=== PATIENT | female | born 1930 | race Caucasian/White ===

== ENCOUNTER 2016-08-19 11:51 | Emergency (ER) | payer OTHER, MEDICAID ==
[2016-08-19 11:56] VITALS: BP 134/69; BMI 23.7
--- NOTE | 2016-08-19 12:32 | DR.GENAD ---
HPI - PCP Primary Care Physician: neema - Complaint/Symptoms Chief Complaint:: pt cat scratched her left hand after telling him to get down - Nurses notes reviewed Nurses Notes Review: Yes - Source History Provided: Patient - Mode of Arrival Mode of Arrival: Ambulatory - Timing Onset of Chief Complaint: 08/19/16 Came on: Suddenly - Duration Duration: Constant How lon Duration: Hours - Location Location: left hand - Severity Severity: Mild - Associated Signs and Symptoms Associated Signs and Symptoms: scratches PMH - PMH Past Medical History: Yes Past Medical History: Arthritis, COPD, Diabetes Past Surgical History: Yes Surgical History: Hysterectomy - Family History History of Family Medical Conditions: Yes Family Medical History: Diabetes Mellitus - Social History Does patient currently use any type of tobacco product: No Have you used tobacco products in the last 12 months: No Type of Tobacco Use: None Does any household member use tobacco: No Alcohol Use: None Do you use any recreational Drugs:: No Lives With: Family Lives Where: Home - infectious screening In the last 2 months have you had wt loss of >10#?: NO Have you had fever, night sweats or hemotysis?: No Have you traveled outside the country in the last 6 months?: No Isolation: Standard ROS - Review of Systems Constitutional: No Symptoms Reported Eyes: No Symptoms Reported ENTM: No Symptoms Reported Respiratoy: No Symptoms Reported Cardiovascular: No Symptoms Reported Gastrointestinal/Abdominal: No Symptoms Reported Genitourinary: No Symptoms Reported Neurological: No Symptoms Reported Musculoskeletal: No Symptoms Reported Integumentary: Other (scratches left hand) Hematologic/Lymphatic: No Symptoms Reported Endocrine: No Symptoms Reported Psychiatric: Depression PE - Vital Signs Vitals: Temperature 97.8 F Pulse Rate 68 Respiratory Rate 18 Blood Pressure [Left Arm] 153/67 Blood Pressure 134/69 O2 Sat by Pulse Oximetry 99 - General Limitations: No Limitations General Appearance: Alert, In No Apparent Distress - Head Head Exam: Normal Inspection - Eyes Eye exam: Normal Appearance, EOMI. negative: Scleral Icterus, Conjunctival Injection - ENT ENT Exam: Normal Exam External Ear Exam: Normal External Inspection - Neck Neck Exam: Normal Inspection, Full ROM, Trachea Midline - Chest Chest Inspection: Normal Inspection - Respiratory Respiratory Exam: Normal Lung Sounds Bilat. negative: Accessory Muscle Use, Respiratory Distress Respiratory Exam: Bilateral Clear to Auscultation - Cardiovascular Cardiovascular Exam: Regular Rate - Abdominal Exam Abdominal Exam: Normal Inspection, Normal Bowel Sounds - Extremities Extremities Exam: Normal Inspection, Full ROM - Back Back Exam: Normal Inspection, Full ROM - Neurologic Neurological Exam: Alert, Oriented X3, CN II-XII Intact - Psychiatric Psychiatric Exam: Normal Mood - Skin Skin Exam: Normal Color. negative: Intact (scratches let hand) - Diagnosis Discharge Problem: Cat scratch - Discharge Plan Condition: Stable Prescriptions: Amoxicillin/Potassium Clav [Augmentin 875-125 Tablet] 1 tab PO Q12H #14 tab - Follow ups/Referrals Follow ups/Referrals: FARAZ SALTER [Primary Care Provider] - 3 days - Instructions
[2016-08-19] MEDS ORDERED: AUGMENTIN 500 MG/125 MG TAB PO ONE ×2 (12:44→12:52)
[2016-08-19] MEDS ORDERED: AUGMENTIN 875 MG/125 MG TAB PO SCH (13:00)
== END 2016-08-19 13:07 | disposition home or self-care (01) ==
LOC: ER 11:59
DX: A28.1 Cat-scratch disease (principal); W55.03XA Scratched by cat, initial encounter
CPT/HCPCS: 99282

== ENCOUNTER → 2016-09-22 | Outpatient (CLI) | payer OTHER, MEDICAID ==
[2016-09-22 18:54] LABS: BASOPHILS # (AUTO) 0.1 X10^3/uL (0.0-0.1); BASOPHILS % (AUTO) 0.8 % (0.2-1.0); EOSINOPHILS # (AUTO) 0.1 x10^3/uL (0.0-0.2); EOSINOPHILS % (AUTO) 1.8 % (0.9-2.9); HEMATOCRIT 38.2 % (36.0-47.0); HEMOGLOBIN 12.7 g/dL (12.0-16.0); LYMPHOCYTES # (AUTO) 1.4 X10^3/uL (1.3-2.9); LYMPHOCYTES % (AUTO) 18.5 % (21.0-51.0); MEAN CORPUSCULAR HEMOGLOBIN 25.6 pg (27.0-34.0); MEAN CORPUSCULAR HGB CONC 33.4 g/dL (33.0-35.0); MEAN CORPUSCULAR VOLUME 76.9 fL (80.0-100.0); MEAN PLATELET VOLUME 8.7 fL (7.4-11.0); MONOCYTES # (AUTO) 0.8 x10^3/uL (0.3-0.8); NEUTROPHILS # (AUTO) 5.2 x10^3/uL (2.2-4.8); NEUTROPHILS % (AUTO) 67.9 % (42.0-75.0); PLATELET COUNT 242 X10^3/uL (150.0-450.0); RED BLOOD COUNT 4.97 X10^6/uL (3.5-5.4); RED CELL DISTRIBUTION WIDTH 16.3 % (11.6-16.5); RETICULOCYTE % 1.12 % (0.8-2.2); WHITE BLOOD COUNT 7.7 X10^3/uL (3.6-10.0)
[2016-09-22 18:58] LABS: HEMOGLOBIN A1C 8.6 % (4.5-6.2)
[2016-09-22 19:01] LABS: PLATELET MORPHOLOGY COMMENT NORMAL (NORMAL)
[2016-09-22 19:06] LABS: ALANINE AMINOTRANSFERASE 30 Units/L (12-78); ALBUMIN 3.9 g/dL (3.4-5.0); ALKALINE PHOSPHATASE 206 Units/L (46-116); ASPARTATE AMINO TRANSFERASE 30 Units/L (15-37); BLOOD UREA NITROGEN 11 mg/dL (7-18); CALCIUM 8.3 mg/dL (8.5-10.1); CARBON DIOXIDE 30.1 mmol/L (21-32); CHLORIDE 102 mmol/L (98-107); CHOLESTEROL 144 mg/dL (0-200); COR NA(FOR HYPERGLY) 139 mmol/L (136-145); GLUCOSE 135 mg/dL (65-99); HDL CHOLESTEROL 48 mg/dL (40-60); HYPOCHROMASIA SLIGHT; SODIUM 138 mmol/L (136-145); TOTAL PROTEIN 8.4 g/dL (6.4-8.2); TRIGLYCERIDES 84 mg/dL (0-150); TSH (3RD GENERATION) 2.843 uIU/mL (0.358-3.74); eGFR BLACK RACES > 60 (>60); eGFR NON BLACK RACES 50 (>60)
[2016-09-26 06:37] LABS: VITAMIN D 25 OH 31 ng/mL (30-80)
[2016-09-29 07:38] LABS: METHYLMALONIC ACID 1.15 umol/L (0.00-0.40)
== END ==
LOC: LAB 18:11
PROVIDERS: ATTEND Nurse Practitioner Family
DX: Z00.00 Encounter for general adult medical examination without abnormal findings (principal); R41.3 Other amnesia; E11.9 Type 2 diabetes mellitus without complications
CPT/HCPCS: 36415; 80053; 80061; 82306; 82607; 82615; 82746; 83036; 83918; 84443; 85025; 85045; 86256; 86340; 86592

== ENCOUNTER → 2017-07-02 | Outpatient (CLI) | payer OTHER, MEDICAID ==
--- NOTE | 2017-07-02 11:47 | US ---
HISTORY: Right upper quadrant pain, GERD Study: Right upper quadrant abdominal ultrasound Comparison: None Technique: Multiple images of the right upper quadrant were obtained. Findings: The right lobe of the liver measures 5.9 x 9.0 x 7.9 cm. The left lobe of the thyroid measures 5.7 x 4.3 x 6.0 cm. No sonographic evidence of focal discrete hepatic mass is appreciated. The right kidney measures 9.8 x 3.4 x 5.8. The right renal cortical thickness measures 1.1 cm. No sonographic evidenc e of hydronephrosis is identified. Small non shadowing echogenic foci measuring up to 2 mm in size al manjit the gallbladder wall may reflect artifact, debris, or polyps. Gallbladder wall thickness is withi n normal limits measuring 2.9 mm. The common bile duct is within normal limits in caliber measuring 2 .9 mm. The pancreas was incompletely visualized. IMPRESSION: 1. Questionable small polyps versus debris within the gallbladder as noted above. Reported By:
--- NOTE | 2017-07-02 12:35 | US ---
HISTORY: Elevated TSH Study: Thyroid ultrasound: Multiplanar ultrasonographic examination of the thyroid was performed. Comparison: None Findings: The thyroid overall is generally homogeneous. It does not appear to be hypervascular. Right lobe: 2.5 cm in length by 1.6 x 1.9 cm. No nodules Left lobe: 2.6 cm in length by 1.0 cm x 1.8 cm. There is a predominantly hypoechoic non hypervascul ar solid mass measuring 1.1 x 0.7 x 1.1 cm. Isthmus: Normal at 3 mm. IMPRESSION: 1. Solid thyroid nodule on the left side. Based on size fine-needle aspiration is recommended. 2. Both lobes of thyroid are small consistent with atrophy. Reported By:
== END | disposition home or self-care (01) | DRG 948 ==
LOC: RAD 09:15
PROVIDERS: ATTEND Psychiatry & Neurology Neurology
DX: R74.8 Abnormal levels of other serum enzymes (principal); E04.1 Nontoxic single thyroid nodule
CPT/HCPCS: 76536; 76705

== ENCOUNTER 2018-03-01 13:29 | Inpatient (IN) ==
[2018-03-01 14:54] LABS: BASOPHILS % (AUTO) 0.7 % (0.2-1.0); EOSINOPHILS # (AUTO) 0.1 x10^3/uL (0.0-0.2); EOSINOPHILS % (AUTO) 1.4 % (0.9-2.9); HEMATOCRIT 44.8 % (36.0-47.0); LYMPHOCYTES # (AUTO) 1.1 X10^3/uL (1.3-2.9); LYMPHOCYTES % (AUTO) 19.2 % (21.0-51.0); MEAN CORPUSCULAR HGB CONC 33.4 g/dL (33.0-35.0); MEAN CORPUSCULAR VOLUME 84.1 fL (80.0-100.0); MEAN PLATELET VOLUME 8.8 fL (7.4-11.0); MONOCYTES # (AUTO) 0.4 x10^3/uL (0.3-0.8); MONOCYTES % (AUTO) 7.2 % (0.0-13.0); NEUTROPHILS # (AUTO) 4.1 x10^3/uL (2.2-4.8); NEUTROPHILS % (AUTO) 71.5 % (42.0-75.0); PLATELET COUNT 187 X10^3/uL (150.0-450.0); RED BLOOD COUNT 5.33 X10^6/uL (3.5-5.4); RED CELL DISTRIBUTION WIDTH 12.9 % (11.6-16.5); WHITE BLOOD COUNT 5.8 X10^3/uL (3.6-10.0)
[2018-03-01 15:08] LABS: ALANINE AMINOTRANSFERASE 43 Units/L (12-78); ALBUMIN 3.7 g/dL (3.4-5.0); ALKALINE PHOSPHATASE 224 Units/L (46-116); ASPARTATE AMINO TRANSFERASE 40 Units/L (15-37); BLOOD UREA NITROGEN 30 mg/dL (7-18); CALCIUM 9.2 mg/dL (8.5-10.1); CARBON DIOXIDE 24.1 mmol/L (21-32); CHLORIDE 94 mmol/L (98-107); COR NA(FOR HYPERGLY) 140 mmol/L (136-145); SODIUM 130 mmol/L (136-145); TOTAL PROTEIN 8.4 g/dL (6.4-8.2); eGFR NON BLACK RACES 27 (>60)
--- NOTE | 2018-03-01 15:43 | CT ---
CT head without contrast Indication: Altered mental status, weakness Comparison: 10/28/2017 Technique: CT images of the head were obtained without contrast. Automatic exposure control was utilized. Findings: There is age-appropriate generalized cortical involution with concomitant ventricular and sulcal enlargement. Patchy areas of white matter hypoattenuation are similar to prior and most compatible with chronic microangiopathy. There is no evidence for acute bleed, generalized edema, or abnormal extra-axial collection. No acute osseous abnormality. The visualized paranasal sinuses and mastoid air cells are grossly clear. Impression: No acute intracranial abnormality. Reported By:
[2018-03-01] MEDS: HumuLIN R SUBCUT PRN ×3 (16:27→21:00)
[2018-03-01] MEDS: NS 1000 ML 1,000 ML IV SCH (16:28)
[2018-03-01 17:15] LABS: BILIRUBIN,URINE NEGATIVE (NEGATIVE); BLOOD/HEMOGLOBIN,URINE 2+ (NEGATIVE); GLUCOSE, URINE 4+ (NEGATIVE); KETONES,URINE 1+ (NEGATIVE); LEUKOCYTE ESTERASE ,URINE NEGATIVE (NEGATIVE); NITRITES,URINE NEGATIVE (NEGATIVE); PROTEIN,URINE 1+ (NEGATIVE); UROBILINOGEN,URINE NORMAL (NORMAL)
[2018-03-01 17:25] LABS: APPEARANCE,URINE CLEAR (CLEAR); BACTERIA,URINE TRACE /HPF (NEGATIVE); COLOR,URINE PALE YELLOW (YELLOW); SQUAMOUS EPITHELIAL CELL,UR FEW /HPF (NEGATIVE)
[2018-03-01] MEDS: SNACK - Diabetic Appropriate PO SCH (20:00)
[2018-03-02 05:18] LABS: BASOPHILS # (AUTO) 0.1 X10^3/uL (0.0-0.1); BASOPHILS % (AUTO) 0.8 % (0.2-1.0); EOSINOPHILS # (AUTO) 0.2 x10^3/uL (0.0-0.2); EOSINOPHILS % (AUTO) 3.4 % (0.9-2.9); HEMATOCRIT 41.1 % (36.0-47.0); LYMPHOCYTES # (AUTO) 1.6 X10^3/uL (1.3-2.9); LYMPHOCYTES % (AUTO) 23.6 % (21.0-51.0); MEAN CORPUSCULAR HEMOGLOBIN 28.2 pg (27.0-34.0); MEAN CORPUSCULAR VOLUME 83.1 fL (80.0-100.0); MEAN PLATELET VOLUME 8.5 fL (7.4-11.0); MONOCYTES # (AUTO) 0.6 x10^3/uL (0.3-0.8); MONOCYTES % (AUTO) 8.4 % (0.0-13.0); NEUTROPHILS # (AUTO) 4.3 x10^3/uL (2.2-4.8); NEUTROPHILS % (AUTO) 63.8 % (42.0-75.0); PLATELET COUNT 176 X10^3/uL (150.0-450.0); RED BLOOD COUNT 4.95 X10^6/uL (3.5-5.4); RED CELL DISTRIBUTION WIDTH 13.1 % (11.6-16.5); WHITE BLOOD COUNT 6.7 X10^3/uL (3.6-10.0)
[2018-03-02 05:24] LABS: HEMOGLOBIN A1C 11.4 %
[2018-03-02 05:27] LABS: ALBUMIN 3.1 g/dL (3.4-5.0); CALCIUM 8.5 mg/dL (8.5-10.1); CARBON DIOXIDE 24.8 mmol/L (21-32); COR CA(FOR HYPOALB) 9.2 mg/dL (8.5-10.1); CREATININE 1.19 mg/dL (0.55-1.02); TOTAL PROTEIN 7.3 g/dL (6.4-8.2)
[2018-03-02] MEDS: HumuLIN R SUBCUT PRN ×4 (05:53→20:24)
[2018-03-02] MEDS: NS 1000 ML 1,000 ML IV SCH ×3 (06:28→20:27)
[2018-03-02 09:10] VITALS: BMI 18.9
[2018-03-02] MEDS: LOVENOX INJ 30 MG SYR SC SCH (12:05)
[2018-03-02] MEDS ORDERED: ANTIVERT TAB 25 MG PO PRN (14:49)
[2018-03-02] MEDS: NexIUM PO SCH (16:35)
[2018-03-02] MEDS: PAXIL PO SCH (16:36)
[2018-03-02] MEDS: PLAVIX PO SCH (16:36)
[2018-03-02] MEDS ORDERED: SNACK - Diabetic Appropriate PO SCH (20:00)
[2018-03-02] MEDS: WELCHOL PO SCH (20:22)
[2018-03-02] MEDS: RESTORIL CAP 15 MG PO PRN ×2 (20:23)
[2018-03-02] MEDS: PROCARDIA XL PO SCH (20:24)
[2018-03-02] MEDS: NAMENDA TAB 10 MG PO SCH (20:24)
[2018-03-02] MEDS: CRESTOR TAB 10 MG PO SCH (20:24)
[2018-03-02] MEDS: SNACK - Diabetic Appropriate PO SCH (20:26)
[2018-03-02] MEDS: LANTUS SC SCH (20:26)
[2018-03-02] MEDS ORDERED: LIPITOR TAB 40 MG PO SCH (21:00)
[2018-03-03] MEDS ORDERED: ULTRAM PO PRN (02:43)
[2018-03-03] MEDS ORDERED: ULTRAM ONE (02:45)
[2018-03-03 05:27] LABS: BASOPHILS # (AUTO) 0.1 X10^3/uL (0.0-0.1); EOSINOPHILS # (AUTO) 0.1 x10^3/uL (0.0-0.2); EOSINOPHILS % (AUTO) 2.1 % (0.9-2.9); HEMATOCRIT 39.9 % (36.0-47.0); HEMOGLOBIN 13.4 g/dL (12.0-16.0); LYMPHOCYTES # (AUTO) 1.1 X10^3/uL (1.3-2.9); LYMPHOCYTES % (AUTO) 16.6 % (21.0-51.0); MEAN CORPUSCULAR HGB CONC 33.5 g/dL (33.0-35.0); MEAN CORPUSCULAR VOLUME 83.4 fL (80.0-100.0); MEAN PLATELET VOLUME 8.7 fL (7.4-11.0); MONOCYTES # (AUTO) 0.6 x10^3/uL (0.3-0.8); MONOCYTES % (AUTO) 8.1 % (0.0-13.0); NEUTROPHILS % (AUTO) 72.2 % (42.0-75.0); PLATELET COUNT 179 X10^3/uL (150.0-450.0); RED BLOOD COUNT 4.79 X10^6/uL (3.5-5.4); WHITE BLOOD COUNT 6.9 X10^3/uL (3.6-10.0)
[2018-03-03 05:32] LABS: CALCIUM 8.5 mg/dL (8.5-10.1); CARBON DIOXIDE 25.1 mmol/L (21-32); COR CA(FOR HYPOALB) 9.3 mg/dL (8.5-10.1); CREATININE 1.11 mg/dL (0.55-1.02)
[2018-03-03] MEDS: GLUCOTROL XL PO SCH (06:06)
[2018-03-03] MEDS: SYNTHROID 50 mcg TAB PO SCH (06:06)
[2018-03-03] MEDS: WELCHOL PO SCH ×2 (06:06→16:06)
[2018-03-03] MEDS: HumuLIN R SUBCUT PRN ×3 (06:14→20:20)
[2018-03-03] MEDS: PROCARDIA XL PO SCH ×2 (07:45→20:19)
[2018-03-03] MEDS: ARICEPT TAB 5 MG PO SCH ×2 (07:45→07:46)
[2018-03-03] MEDS: NAMENDA TAB 10 MG PO SCH ×2 (07:46→20:19)
[2018-03-03] MEDS: NexIUM PO SCH (07:46)
[2018-03-03] MEDS: JANUVIA PO SCH (07:46)
[2018-03-03] MEDS: PAXIL PO SCH (07:46)
[2018-03-03] MEDS: PLAVIX PO SCH (07:46)
[2018-03-03] MEDS: LANTUS SC SCH ×2 (07:49→20:19)
[2018-03-03] MEDS: LOVENOX INJ 30 MG SYR SC SCH (07:50)
--- NOTE | 2018-03-03 10:30 | RAD ---
HISTORY: Abnormal physical exam Study: Chest PA and lateral Comparison: Chest CT 02/23/2018 Findings: There is a pacemaker present on the right. The heart is mildly enlarged. No congestive heart failure is noted. No acute alveolar infiltrates or pleural effusions are identified. Mild interstitial lung changes are present. The lung nodules described on the recent CT are not visualized on plain film and follow-up should be with CT. The bony thorax is unremarkable. IMPRESSION: Chronic interstitial lung changes, mild, stable No acute infiltrates Reported By:
[2018-03-03] MEDS: ROCEPHIN VIAL 1 GRAM IV SCH (12:22)
[2018-03-03] MEDS: NS 1000 ML 1,000 ML IV SCH ×2 (12:26→20:19)
[2018-03-03] MEDS: CRESTOR TAB 10 MG PO SCH (20:19)
[2018-03-03] MEDS: RESTORIL CAP 15 MG PO PRN (20:19)
[2018-03-03] MEDS: SNACK - Diabetic Appropriate PO SCH (20:20)
[2018-03-04] MEDS: NS 1000 ML 1,000 ML IV SCH ×3 (05:16→20:28)
[2018-03-04 05:31] LABS: BASOPHILS % (AUTO) 0.8 % (0.2-1.0); EOSINOPHILS # (AUTO) 0.2 x10^3/uL (0.0-0.2); EOSINOPHILS % (AUTO) 2.8 % (0.9-2.9); HEMATOCRIT 40.5 % (36.0-47.0); HEMOGLOBIN 13.5 g/dL (12.0-16.0); LYMPHOCYTES # (AUTO) 1.1 X10^3/uL (1.3-2.9); LYMPHOCYTES % (AUTO) 17.9 % (21.0-51.0); MEAN CORPUSCULAR HGB CONC 33.3 g/dL (33.0-35.0); MEAN PLATELET VOLUME 8.7 fL (7.4-11.0); MONOCYTES # (AUTO) 0.5 x10^3/uL (0.3-0.8); MONOCYTES % (AUTO) 7.6 % (0.0-13.0); NEUTROPHILS # (AUTO) 4.2 x10^3/uL (2.2-4.8); NEUTROPHILS % (AUTO) 70.9 % (42.0-75.0); PLATELET COUNT 187 X10^3/uL (150.0-450.0); RED BLOOD COUNT 4.82 X10^6/uL (3.5-5.4); RED CELL DISTRIBUTION WIDTH 13.2 % (11.6-16.5); WHITE BLOOD COUNT 5.9 X10^3/uL (3.6-10.0)
[2018-03-04 05:45] LABS: ALANINE AMINOTRANSFERASE 42 Units/L (12-78); ALBUMIN 2.8 g/dL (3.4-5.0); ALKALINE PHOSPHATASE 181 Units/L (46-116); ASPARTATE AMINO TRANSFERASE 48 Units/L (15-37); BLOOD UREA NITROGEN 15 mg/dL (7-18); CALCIUM 8.4 mg/dL (8.5-10.1); CARBON DIOXIDE 24.3 mmol/L (21-32); CHLORIDE 104 mmol/L (98-107); COR CA(FOR HYPOALB) 9.4 mg/dL (8.5-10.1); CREATININE 0.95 mg/dL (0.55-1.02); SODIUM 138 mmol/L (136-145); TOTAL PROTEIN 7.1 g/dL (6.4-8.2); eGFR NON BLACK RACES 59 (>60)
[2018-03-04] MEDS: GLUCOTROL XL PO SCH (06:10)
[2018-03-04] MEDS: SYNTHROID 50 mcg TAB PO SCH (06:10)
[2018-03-04] MEDS: WELCHOL PO SCH ×2 (06:10→16:38)
[2018-03-04] MEDS: NAMENDA TAB 10 MG PO SCH ×2 (08:16→20:29)
[2018-03-04] MEDS: NexIUM PO SCH (08:16)
[2018-03-04] MEDS: PAXIL PO SCH (08:16)
[2018-03-04] MEDS: ROCEPHIN VIAL 1 GRAM IV SCH (08:16)
[2018-03-04] MEDS: ARICEPT TAB 5 MG PO SCH (08:16)
[2018-03-04] MEDS: JANUVIA PO SCH (08:16)
[2018-03-04] MEDS: PROCARDIA XL PO SCH ×2 (08:16→20:29)
[2018-03-04] MEDS: LOVENOX INJ 30 MG SYR SC SCH (08:17)
[2018-03-04] MEDS: PLAVIX PO SCH (08:31)
[2018-03-04] MEDS: LANTUS SC SCH ×2 (08:32→20:30)
[2018-03-04] MEDS: CIPRO IV 400 MG PREMIX* 400 MG/200 ML IV.SOLN. IV SCH ×2 (11:06→20:29)
[2018-03-04] MEDS: HumuLIN R SUBCUT PRN ×3 (11:07→20:29)
--- NOTE | 2018-03-04 13:42 | PCM.PROG ---
Progress Note - Progress Note for Day of Date of Exam: 03/04/18 - Subjective Subjective: 87 WF ER ADMISSION ON 03/03 WITH AMS, GENERALIZED WEAKNESS, UNCONTROLLED BLOOD SUGAR AND UTI. SINCE ADMISSION PT HAS HAD IMPROVEMENT IN BLOOD GLUCOSE AND RESOLVED CONFUSION. PT CONTINUES WITH DIFFUSE WEAKNESS BUT DENIES CP OR SOB. PT COOPERATING WITH PHYSICAL THERAPY AT THIS TIME. FAMILY CONCERNED ABOUT PT STAYING ALONE. PT CURRENTLY REFUSES PERMANENT [facility] PLACEMENT, DISCUSSED POSSIBLE REHAB THERAPY. PT URINE CULTURE RESULTS NOT SENSATIVE TO ROCEPHIN, CHANGED TO IV CIPRO. - Past Medical Family Social History Past Med/Fam/Surg Hx: No changes since H&P Allergies: Allergies acetaminophen Allergy (Verified 10/28/17 12:29) pyrilamine Allergy (Verified 10/28/17 12:29) - Review of Systems ROS: No change since H&P - Vital Signs and I&O's Vital Signs: Temperature 97.9 F Pulse Rate [Left Brachial] 70 Respiratory Rate 20 Blood Pressure [Right Arm] 120/58 Blood Pressure [Left Arm] 135/65 Blood Pressure 146/66 O2 Sat by Pulse Oximetry 96 Intake and Output: Intake & Output 03/02/18 03/03/18 03/04/18 03/05/18 11:59 11:59 11:59 11:59 Intake Total 1430 / 1430 2539 / 2539 2463 / 2463 Balance 1430 / 1430 2539 / 2539 2463 / 2463 - Physical Exam Oriented: Normal Eyes: Blurred Vision (CHRONIC VISION IMPAIRMENT) Ear: Normal Nose: Normal Throat: Normal Respiratory: Diminished Cardiovascular: Normal : Normal Auscultation: Bowel Sounds: Normal Palpation: Normal Tenderness: Normal Skin: Decreased Turgur Musculoskeletal: Back:Thoracic, Back:Lumbar Psychiatric: Anxiety Affect: Anxious Speech Pattern: Clear, Appropriate - Laboratory and Diagnostics Result Diagrams: 03/04/18 04:50 03/04/18 04:50 Labs: 03/01/18 16:50 Urine,Clean Catch Urine Culture - Final Staphylococcus Haemolyticus Laboratory WBC 5.9 X10^3/uL (3.6-10.0) 03/04/18 04:50 RBC 4.82 X10^6/uL (3.5-5.4) 03/04/18 04:50 Hgb 13.5 g/dL (12.0-16.0) 03/04/18 04:50 Hct 40.5 % (36.0-47.0) 03/04/18 04:50 MCV 84.0 fL (80.0-100.0) 03/04/18 04:50 MCH 28.0 pg (27.0-34.0) 03/04/18 04:50 MCHC 33.3 g/dL (33.0-35.0) 03/04/18 04:50 RDW 13.2 % (11.6-16.5) 03/04/18 04:50 Plt Count 187 X10^3/uL (150.0-450.0) 03/04/18 04:50 MPV 8.7 fL (7.4-11.0) 03/04/18 04:50 Neut % (Auto) 70.9 % (42.0-75.0) 03/04/18 04:50 Lymph % (Auto) 17.9 % (21.0-51.0) L 03/04/18 04:50 Lane % (Auto) 7.6 % (0.0-13.0) 03/04/18 04:50 Eos % (Auto) 2.8 % (0.9-2.9) 03/04/18 04:50 Baso % (Auto) 0.8 % (0.2-1.0) 03/04/18 04:50 Neut # (Auto) 4.2 x10^3/uL (2.2-4.8) 03/04/18 04:50 Lymph # (Auto) 1.1 X10^3/uL (1.3-2.9) L 03/04/18 04:50 Lane # (Auto) 0.5 x10^3/uL (0.3-0.8) 03/04/18 04:50 Eos # (Auto) 0.2 x10^3/uL (0.0-0.2) 03/04/18 04:50 Baso # (Auto) 0.0 X10^3/uL (0.0-0.1) 03/04/18 04:50 Absolute Nucleated RBC 0.1 /100WBC 03/04/18 04:50 Sodium 138 mmol/L (136-145) 03/04/18 04:50 Corrected Sodium TNP 03/04/18 04:50 Potassium 3.9 mmol/L (3.5-5.1) 03/04/18 04:50 Chloride 104 mmol/L (98-107) 03/04/18 04:50 Carbon Dioxide 24.3 mmol/L (21-32) 03/04/18 04:50 BUN 15 mg/dL (7-18) 03/04/18 04:50 Creatinine 0.95 mg/dL (0.55-1.02) 03/04/18 04:50 Est GFR (MDRD) Af Amer > 60 (>60) 03/04/18 04:50 Est GFR (MDRD) Non-Af 59 (>60) 03/04/18 04:50 Glucose 80 mg/dL (65-99) 03/04/18 04:50 POC Glucose (mg/dL) 87 mg/dL (65-99) 03/04/18 05:19 Hemoglobin A1c 11.4 % 03/02/18 05:00 Calcium 8.4 mg/dL (8.5-10.1) L 03/04/18 04:50 Corrected Calcium 9.4 mg/dL (8.5-10.1) 03/04/18 04:50 Total Bilirubin 0.30 mg/dL (0.2-1.0) 03/04/18 04:50 AST 48 Units/L (15-37) H 03/04/18 04:50 ALT 42 Units/L (12-78) 03/04/18 04:50 Alkaline Phosphatase 181 Units/L (46-116) H 03/04/18 04:50 Total Protein 7.1 g/dL (6.4-8.2) 03/04/18 04:50 Albumin 2.8 g/dL (3.4-5.0) L 03/04/18 04:50 Globulin 4.3 g/dL (2.5-4.5) 03/04/18 04:50 Albumin/Globulin Ratio 0.7 Ratio (1.1-2.1) L 03/04/18 04:50 Specimen Type Clean catch urine 03/01/18 16:50 Urine Color Pale yellow (YELLOW) 03/01/18 16:50 Urine Appearance Clear (CLEAR) 03/01/18 16:50 Urine pH 5.0 (5.0 - 8.0) 03/01/18 16:50 Ur Specific [place] 1.015 (1.000-1.030) 03/01/18 16:50 Urine Protein 1+ (NEGATIVE) 03/01/18 16:50 Urine Glucose (UA) 4+ (NEGATIVE) 03/01/18 16:50 Urine Ketones 1+ (NEGATIVE) 03/01/18 16:50 Urine Occult Blood 2+ (NEGATIVE) 03/01/18 16:50 Urine Nitrite Negative (NEGATIVE) 03/01/18 16:50 Urine Bilirubin Negative (NEGATIVE) 03/01/18 16:50 Urine Urobilinogen Normal (NORMAL) 03/01/18 16:50 Ur Leukocyte Esterase Negative (NEGATIVE) 03/01/18 16:50 Urine RBC 3-5 /HPF (NONE SEEN) 03/01/18 16:50 Urine WBC None seen /HPF (NONE SEEN) 03/01/18 16:50 Ur Squamous Epith Cells Few /HPF (NEGATIVE) 03/01/18 16:50 Urine Bacteria Trace /HPF (NEGATIVE) 03/01/18 16:50 Ur Culture Indicated? Yes/culture set up 03/01/18 16:50 - Plan (1) UTI (lower urinary tract infection) Status: Acute Plan: ENCOURAGE PO HYDRATION. AM LABS, BLOOD SUGAR CONTROL. IV CIPRO. CONTINUE HOME MEDICATION FOR BP AND LIPID CONTROL. PT (2) Adult failure to thrive Status: Acute (3) Generalized weakness Status: Acute (4) Hyperglycemia Status: Acute (5) History of atrial fibrillation Status: Acute Plan: CONTINUE ELIQUIS
[2018-03-04] MEDS: SNACK - Diabetic Appropriate PO SCH (20:00)
[2018-03-04] MEDS: CRESTOR TAB 10 MG PO SCH (20:29)
[2018-03-04] MEDS: RESTORIL CAP 15 MG PO PRN (20:29)
[2018-03-05 05:20] LABS: BASOPHILS # (AUTO) 0.1 X10^3/uL (0.0-0.1); BASOPHILS % (AUTO) 1.1 % (0.2-1.0); EOSINOPHILS # (AUTO) 0.3 x10^3/uL (0.0-0.2); EOSINOPHILS % (AUTO) 4.1 % (0.9-2.9); HEMATOCRIT 38.4 % (36.0-47.0); HEMOGLOBIN 12.7 g/dL (12.0-16.0); LYMPHOCYTES # (AUTO) 1.3 X10^3/uL (1.3-2.9); LYMPHOCYTES % (AUTO) 19.7 % (21.0-51.0); MEAN CORPUSCULAR HEMOGLOBIN 27.9 pg (27.0-34.0); MEAN CORPUSCULAR HGB CONC 33.1 g/dL (33.0-35.0); MEAN CORPUSCULAR VOLUME 84.3 fL (80.0-100.0); MEAN PLATELET VOLUME 8.6 fL (7.4-11.0); MONOCYTES # (AUTO) 0.6 x10^3/uL (0.3-0.8); MONOCYTES % (AUTO) 9.1 % (0.0-13.0); NEUTROPHILS # (AUTO) 4.3 x10^3/uL (2.2-4.8); PLATELET COUNT 189 X10^3/uL (150.0-450.0); RED BLOOD COUNT 4.56 X10^6/uL (3.5-5.4); RED CELL DISTRIBUTION WIDTH 12.9 % (11.6-16.5); WHITE BLOOD COUNT 6.5 X10^3/uL (3.6-10.0)
[2018-03-05 05:28] LABS: ALANINE AMINOTRANSFERASE 31 Units/L (12-78); ALBUMIN 2.8 g/dL (3.4-5.0); ALKALINE PHOSPHATASE 174 Units/L (46-116); ASPARTATE AMINO TRANSFERASE 33 Units/L (15-37); BLOOD UREA NITROGEN 10 mg/dL (7-18); CALCIUM 8.1 mg/dL (8.5-10.1); CARBON DIOXIDE 26.8 mmol/L (21-32); CHLORIDE 104 mmol/L (98-107); COR CA(FOR HYPOALB) 9.1 mg/dL (8.5-10.1); COR NA(FOR HYPERGLY) 140 mmol/L (136-145); CREATININE 0.85 mg/dL (0.55-1.02); SODIUM 139 mmol/L (136-145); TOTAL PROTEIN 6.7 g/dL (6.4-8.2); eGFR NON BLACK RACES > 60 (>60)
[2018-03-05] MEDS: NS 1000 ML 1,000 ML IV SCH ×2 (06:01→18:46)
[2018-03-05] MEDS: SYNTHROID 50 mcg TAB PO SCH (06:01)
[2018-03-05] MEDS: GLUCOTROL XL PO SCH (06:01)
[2018-03-05] MEDS: WELCHOL PO SCH ×2 (06:02→17:10)
[2018-03-05] MEDS: ARICEPT TAB 5 MG PO SCH (07:59)
[2018-03-05] MEDS: JANUVIA PO SCH (07:59)
[2018-03-05] MEDS: PAXIL PO SCH (08:00)
[2018-03-05] MEDS: PLAVIX PO SCH (08:00)
[2018-03-05] MEDS: LANTUS SC SCH ×2 (08:00→20:57)
[2018-03-05] MEDS: LOVENOX INJ 30 MG SYR SC SCH (08:00)
[2018-03-05] MEDS: PROCARDIA XL PO SCH ×2 (08:00→20:49)
[2018-03-05] MEDS: NexIUM PO SCH (08:00)
[2018-03-05] MEDS: CIPRO IV 400 MG PREMIX* 400 MG/200 ML IV.SOLN. IV SCH ×2 (08:00→20:50)
[2018-03-05] MEDS: NAMENDA TAB 10 MG PO SCH ×2 (08:00→20:49)
[2018-03-05] MEDS: HumuLIN R SUBCUT PRN (11:22)
[2018-03-05] MEDS: CRESTOR TAB 10 MG PO SCH (20:48)
[2018-03-05] MEDS: SNACK - Diabetic Appropriate PO SCH (20:49)
[2018-03-05] MEDS: RESTORIL CAP 15 MG PO PRN (20:50)
[2018-03-06 05:18] LABS: BASOPHILS % (AUTO) 0.7 % (0.2-1.0); EOSINOPHILS # (AUTO) 0.3 x10^3/uL (0.0-0.2); EOSINOPHILS % (AUTO) 5.3 % (0.9-2.9); HEMATOCRIT 39.5 % (36.0-47.0); HEMOGLOBIN 13.1 g/dL (12.0-16.0); LYMPHOCYTES # (AUTO) 1.2 X10^3/uL (1.3-2.9); LYMPHOCYTES % (AUTO) 19.3 % (21.0-51.0); MEAN CORPUSCULAR HEMOGLOBIN 28.2 pg (27.0-34.0); MEAN CORPUSCULAR HGB CONC 33.3 g/dL (33.0-35.0); MEAN CORPUSCULAR VOLUME 84.7 fL (80.0-100.0); MEAN PLATELET VOLUME 8.6 fL (7.4-11.0); MONOCYTES # (AUTO) 0.5 x10^3/uL (0.3-0.8); MONOCYTES % (AUTO) 8.7 % (0.0-13.0); NEUTROPHILS # (AUTO) 4.1 x10^3/uL (2.2-4.8); PLATELET COUNT 197 X10^3/uL (150.0-450.0); RED BLOOD COUNT 4.66 X10^6/uL (3.5-5.4); RED CELL DISTRIBUTION WIDTH 13.3 % (11.6-16.5); WHITE BLOOD COUNT 6.2 X10^3/uL (3.6-10.0)
[2018-03-06 05:22] LABS: ALANINE AMINOTRANSFERASE 31 Units/L (12-78); ALBUMIN 2.7 g/dL (3.4-5.0); ALKALINE PHOSPHATASE 181 Units/L (46-116); ASPARTATE AMINO TRANSFERASE 31 Units/L (15-37); BLOOD UREA NITROGEN 13 mg/dL (7-18); CALCIUM 8.8 mg/dL (8.5-10.1); CARBON DIOXIDE 27.3 mmol/L (21-32); CHLORIDE 104 mmol/L (98-107); COR CA(FOR HYPOALB) 9.8 mg/dL (8.5-10.1); COR NA(FOR HYPERGLY) 142 mmol/L (136-145); CREATININE 0.96 mg/dL (0.55-1.02); SODIUM 139 mmol/L (136-145); TOTAL PROTEIN 6.7 g/dL (6.4-8.2); eGFR NON BLACK RACES 58 (>60)
[2018-03-06] MEDS: GLUCOTROL XL PO SCH (06:28)
[2018-03-06] MEDS: SYNTHROID 50 mcg TAB PO SCH (06:28)
[2018-03-06] MEDS: WELCHOL PO SCH ×2 (06:28→17:36)
[2018-03-06] MEDS: HumuLIN R SUBCUT PRN ×3 (06:29→22:00)
[2018-03-06] MEDS: CIPRO IV 400 MG PREMIX* 400 MG/200 ML IV.SOLN. IV SCH ×2 (09:06→21:28)
[2018-03-06] MEDS: LOVENOX INJ 30 MG SYR SC SCH (09:07)
[2018-03-06] MEDS: JANUVIA PO SCH (09:07)
[2018-03-06] MEDS: NAMENDA TAB 10 MG PO SCH ×2 (09:08→21:28)
[2018-03-06] MEDS: NexIUM PO SCH (09:08)
[2018-03-06] MEDS: PAXIL PO SCH (09:08)
[2018-03-06] MEDS: ARICEPT TAB 5 MG PO SCH (09:09)
[2018-03-06] MEDS: PROCARDIA XL PO SCH ×3 (09:09→21:27)
[2018-03-06] MEDS: PLAVIX PO SCH (09:09)
[2018-03-06] MEDS: LANTUS SC SCH ×2 (09:14→21:28)
--- NOTE | 2018-03-06 14:03 | PCM.PROG ---
Progress Note - Progress Note for Day of Date of Exam: 03/06/18 - Subjective Subjective: 87 WF ER ADMISSION ON 03/03 WITH AMS, GENERALIZED WEAKNESS, UNCONTROLLED BLOOD SUGAR AND UTI. SINCE ADMISSION PT HAS HAD IMPROVEMENT IN BLOOD GLUCOSE AND RESOLVED CONFUSION. PT CONTINUES WITH DIFFUSE WEAKNESS BUT DENIES CP OR SOB. PT COOPERATING WITH PHYSICAL THERAPY AT THIS TIME. FAMILY CONCERNED ABOUT PT STAYING ALONE. PT CURRENTLY REFUSES PERMANENT LONG-TERM PLACEMENT, DISCUSSED POSSIBLE REHAB THERAPY. CASE MANAGMENT TO ARRANGE HOME HEALTH AND CONTACT FAMILY ABOUT D/C HOME ON THURSDAY. PT URINE CULTURE RESULTS SENSATIVE TO IV CIPRO. WILL CONTINUE BS CONTROL AND ENCOURAGE ORAL HYDRATION. BUN 13, CREAT 0.96. BS ELEVATED THIS AM226, PT ATE 90% BREAKFAST - Past Medical Family Social History Past Med/Fam/Surg Hx: No changes since H&P Allergies: Allergies acetaminophen Allergy (Verified 10/28/17 12:29) pyrilamine Allergy (Verified 10/28/17 12:29) - Review of Systems ROS: No change since H&P - Vital Signs and I&O's Vital Signs: Temperature 98.3 F Pulse Rate [Left Brachial] 68 Respiratory Rate 18 Blood Pressure [Right Arm] 120/58 Blood Pressure [Left Arm] 110/62 Blood Pressure 146/66 O2 Sat by Pulse Oximetry 97 Intake and Output: Intake & Output 03/04/18 03/05/18 03/06/18 03/07/18 11:59 11:59 11:59 11:59 Intake Total 2463 / 2463 3528 / 3528 1220 / 1220 Balance 2463 / 2463 3528 / 3528 1220 / 1220 - Physical Exam Oriented: Normal Eyes: Blurred Vision (CHRONIC VISION IMPAIRMENT) Ear: Normal Nose: Normal Throat: Normal Respiratory: Diminished Cardiovascular: Normal : Normal Auscultation: Bowel Sounds: Normal Tenderness: Normal Skin: Decreased Turgur Musculoskeletal: Back:Thoracic, Back:Lumbar Psychiatric: Anxiety Affect: Anxious Speech Pattern: Clear, Appropriate - Laboratory and Diagnostics Result Diagrams: 03/06/18 04:15 03/06/18 04:15 Labs: 03/01/18 16:50 Urine,Clean Catch Urine Culture - Final Staphylococcus Haemolyticus Laboratory WBC 6.2 X10^3/uL (3.6-10.0) 03/06/18 04:15 RBC 4.66 X10^6/uL (3.5-5.4) 03/06/18 04:15 Hgb 13.1 g/dL (12.0-16.0) 03/06/18 04:15 Hct 39.5 % (36.0-47.0) 03/06/18 04:15 MCV 84.7 fL (80.0-100.0) 03/06/18 04:15 MCH 28.2 pg (27.0-34.0) 03/06/18 04:15 MCHC 33.3 g/dL (33.0-35.0) 03/06/18 04:15 RDW 13.3 % (11.6-16.5) 03/06/18 04:15 Plt Count 197 X10^3/uL (150.0-450.0) 03/06/18 04:15 MPV 8.6 fL (7.4-11.0) 03/06/18 04:15 Neut % (Auto) 66.0 % (42.0-75.0) 03/06/18 04:15 Lymph % (Auto) 19.3 % (21.0-51.0) L 03/06/18 04:15 [place] % (Auto) 8.7 % (0.0-13.0) 03/06/18 04:15 Eos % (Auto) 5.3 % (0.9-2.9) H 03/06/18 04:15 Baso % (Auto) 0.7 % (0.2-1.0) 03/06/18 04:15 Neut # (Auto) 4.1 x10^3/uL (2.2-4.8) 03/06/18 04:15 Lymph # (Auto) 1.2 X10^3/uL (1.3-2.9) L 03/06/18 04:15 [place] # (Auto) 0.5 x10^3/uL (0.3-0.8) 03/06/18 04:15 Eos # (Auto) 0.3 x10^3/uL (0.0-0.2) H 03/06/18 04:15 Baso # (Auto) 0.0 X10^3/uL (0.0-0.1) 03/06/18 04:15 Absolute Nucleated RBC 0.2 /100WBC 03/06/18 04:15 Sodium 139 mmol/L (136-145) 03/06/18 04:15 Corrected Sodium 142 mmol/L (136-145) 03/06/18 04:15 Potassium 3.8 mmol/L (3.5-5.1) 03/06/18 04:15 Chloride 104 mmol/L (98-107) 03/06/18 04:15 Carbon Dioxide 27.3 mmol/L (21-32) 03/06/18 04:15 BUN 13 mg/dL (7-18) 03/06/18 04:15 Creatinine 0.96 mg/dL (0.55-1.02) 03/06/18 04:15 Est GFR (MDRD) Af Amer > 60 (>60) 03/06/18 04:15 Est GFR (MDRD) Non-Af 58 (>60) L 03/06/18 04:15 Glucose 226 mg/dL (65-99) H 03/06/18 04:15 POC Glucose (mg/dL) 87 mg/dL (65-99) 03/04/18 05:19 Hemoglobin A1c 11.4 % 03/02/18 05:00 Calcium 8.8 mg/dL (8.5-10.1) 03/06/18 04:15 Corrected Calcium 9.8 mg/dL (8.5-10.1) 03/06/18 04:15 Total Bilirubin 0.30 mg/dL (0.2-1.0) 03/06/18 04:15 AST 31 Units/L (15-37) 03/06/18 04:15 ALT 31 Units/L (12-78) 03/06/18 04:15 Alkaline Phosphatase 181 Units/L (46-116) H 03/06/18 04:15 Total Protein 6.7 g/dL (6.4-8.2) 03/06/18 04:15 Albumin 2.7 g/dL (3.4-5.0) L 03/06/18 04:15 Globulin 4.0 g/dL (2.5-4.5) 03/06/18 04:15 Albumin/Globulin Ratio 0.7 Ratio (1.1-2.1) L 03/06/18 04:15 Specimen Type Clean catch urine 03/01/18 16:50 Urine Color Pale yellow (YELLOW) 03/01/18 16:50 Urine Appearance Clear (CLEAR) 03/01/18 16:50 Urine pH 5.0 (5.0 - 8.0) 03/01/18 16:50 Ur Specific [place] 1.015 (1.000-1.030) 03/01/18 16:50 Urine Protein 1+ (NEGATIVE) 03/01/18 16:50 Urine Glucose (UA) 4+ (NEGATIVE) 03/01/18 16:50 Urine Ketones 1+ (NEGATIVE) 03/01/18 16:50 Urine Occult Blood 2+ (NEGATIVE) 03/01/18 16:50 Urine Nitrite Negative (NEGATIVE) 03/01/18 16:50 Urine Bilirubin Negative (NEGATIVE) 03/01/18 16:50 Urine Urobilinogen Normal (NORMAL) 03/01/18 16:50 Ur Leukocyte Esterase Negative (NEGATIVE) 03/01/18 16:50 Urine RBC 3-5 /HPF (NONE SEEN) 03/01/18 16:50 Urine WBC None seen /HPF (NONE SEEN) 03/01/18 16:50 Ur Squamous Epith Cells Few /HPF (NEGATIVE) 03/01/18 16:50 Urine Bacteria Trace /HPF (NEGATIVE) 03/01/18 16:50 Ur Culture Indicated? Yes/culture set up 03/01/18 16:50 - Plan (1) UTI (lower urinary tract infection) Status: Acute Plan: ENCOURAGE PO HYDRATION. AM LABS, BLOOD SUGAR CONTROL. IV CIPRO. CONTINUE HOME MEDICATION FOR BP AND LIPID CONTROL. PT (2) Adult failure to thrive Status: Acute (3) Generalized weakness Status: Acute (4) Hyperglycemia Status: Acute (5) History of atrial fibrillation Status: Acute Plan: CONTINUE ELIQUIS
[2018-03-06] MEDS: RESTORIL CAP 15 MG PO PRN (21:27)
[2018-03-06] MEDS: CRESTOR TAB 10 MG PO SCH (21:27)
[2018-03-06] MEDS: SNACK - Diabetic Appropriate PO SCH (21:28)
[2018-03-06] MEDS: NS 1000 ML 1,000 ML IV SCH (21:29)
[2018-03-07 05:17] LABS: BASOPHILS % (AUTO) 0.6 % (0.2-1.0); EOSINOPHILS # (AUTO) 0.4 x10^3/uL (0.0-0.2); EOSINOPHILS % (AUTO) 5.2 % (0.9-2.9); HEMATOCRIT 40.9 % (36.0-47.0); HEMOGLOBIN 13.5 g/dL (12.0-16.0); LYMPHOCYTES # (AUTO) 2.5 X10^3/uL (1.3-2.9); LYMPHOCYTES % (AUTO) 33.3 % (21.0-51.0); MEAN CORPUSCULAR HEMOGLOBIN 27.7 pg (27.0-34.0); MEAN CORPUSCULAR VOLUME 83.8 fL (80.0-100.0); MEAN PLATELET VOLUME 8.3 fL (7.4-11.0); MONOCYTES # (AUTO) 0.8 x10^3/uL (0.3-0.8); MONOCYTES % (AUTO) 10.7 % (0.0-13.0); NEUTROPHILS # (AUTO) 3.8 x10^3/uL (2.2-4.8); NEUTROPHILS % (AUTO) 50.2 % (42.0-75.0); PLATELET COUNT 227 X10^3/uL (150.0-450.0); RED BLOOD COUNT 4.88 X10^6/uL (3.5-5.4); RED CELL DISTRIBUTION WIDTH 13.2 % (11.6-16.5); WHITE BLOOD COUNT 7.5 X10^3/uL (3.6-10.0)
[2018-03-07 05:23] LABS: ALANINE AMINOTRANSFERASE 33 Units/L (12-78); ALKALINE PHOSPHATASE 188 Units/L (46-116); ASPARTATE AMINO TRANSFERASE 37 Units/L (15-37); BLOOD UREA NITROGEN 13 mg/dL (7-18); CALCIUM 8.6 mg/dL (8.5-10.1); CARBON DIOXIDE 27.8 mmol/L (21-32); CHLORIDE 104 mmol/L (98-107); COR CA(FOR HYPOALB) 9.4 mg/dL (8.5-10.1); CREATININE 0.95 mg/dL (0.55-1.02); SODIUM 141 mmol/L (136-145); TOTAL PROTEIN 7.1 g/dL (6.4-8.2); eGFR NON BLACK RACES 59 (>60)
[2018-03-07] MEDS ORDERED: POTASSIUM CHL 60 MEQ/NS 0.45% 500 ML IV PRN (05:41)
[2018-03-07] MEDS ORDERED: K-RIDER 10 MEQ/NS 100 ML 10 MEQ/100 ML BAG IV PRN (05:41)
[2018-03-07] MEDS ORDERED: KLOR-CON PO PRN (05:41)
[2018-03-07] MEDS ORDERED: MICRO K EXTEN CAP 10 MEQ PO PRN (05:41)
[2018-03-07] MEDS ORDERED: POTASSIUM CHL 40 MEQ/NS 0.45% 500 ML IV PRN (05:41)
[2018-03-07] MEDS ORDERED: POTASSIUM CHLORIDE LIQ 20 MEQ UDC PO PRN (05:41)
[2018-03-07] MEDS ORDERED: K-DUR TAB 20 MEQ PO PRN (05:41)
[2018-03-07] MEDS: WELCHOL PO SCH ×2 (06:05→18:20)
[2018-03-07] MEDS: SYNTHROID 50 mcg TAB PO SCH (06:05)
[2018-03-07] MEDS: MAGNESIUM SULFATE 1 GRAM/100 mL PREMIX 1 GM/100 ML BAG IV PRN ×2 (08:57→10:50)
[2018-03-07] MEDS: CIPRO IV 400 MG PREMIX* 400 MG/200 ML IV.SOLN. IV SCH ×2 (09:01→20:46)
[2018-03-07] MEDS: LOVENOX INJ 30 MG SYR SC SCH (09:02)
[2018-03-07] MEDS: NexIUM PO SCH (09:02)
[2018-03-07] MEDS: NAMENDA TAB 10 MG PO SCH ×2 (09:02→20:47)
[2018-03-07] MEDS: PAXIL PO SCH (09:03)
[2018-03-07] MEDS: ARICEPT TAB 5 MG PO SCH (09:03)
[2018-03-07] MEDS: PLAVIX PO SCH (09:03)
[2018-03-07] MEDS: PROCARDIA XL PO SCH ×2 (09:11→20:47)
[2018-03-07] MEDS: JANUVIA PO SCH (09:45)
[2018-03-07] MEDS: GLUCOTROL XL PO SCH (09:45)
[2018-03-07] MEDS: LANTUS SC SCH ×2 (09:45→20:47)
[2018-03-07] MEDS: HumuLIN R SUBCUT PRN ×2 (13:04→18:21)
[2018-03-07] MEDS: CRESTOR TAB 10 MG PO SCH (20:46)
[2018-03-07] MEDS: SNACK - Diabetic Appropriate PO SCH (20:47)
[2018-03-08 05:25] LABS: BASOPHILS % (AUTO) 0.6 % (0.2-1.0); EOSINOPHILS # (AUTO) 0.3 x10^3/uL (0.0-0.2); EOSINOPHILS % (AUTO) 4.3 % (0.9-2.9); HEMATOCRIT 37.9 % (36.0-47.0); HEMOGLOBIN 12.8 g/dL (12.0-16.0); LYMPHOCYTES # (AUTO) 1.4 X10^3/uL (1.3-2.9); LYMPHOCYTES % (AUTO) 18.5 % (21.0-51.0); MEAN CORPUSCULAR HEMOGLOBIN 28.1 pg (27.0-34.0); MEAN CORPUSCULAR HGB CONC 33.8 g/dL (33.0-35.0); MEAN CORPUSCULAR VOLUME 83.2 fL (80.0-100.0); MEAN PLATELET VOLUME 8.5 fL (7.4-11.0); MONOCYTES # (AUTO) 0.6 x10^3/uL (0.3-0.8); MONOCYTES % (AUTO) 8.2 % (0.0-13.0); NEUTROPHILS # (AUTO) 5.2 x10^3/uL (2.2-4.8); NEUTROPHILS % (AUTO) 68.4 % (42.0-75.0); PLATELET COUNT 206 X10^3/uL (150.0-450.0); RED BLOOD COUNT 4.55 X10^6/uL (3.5-5.4); RED CELL DISTRIBUTION WIDTH 12.8 % (11.6-16.5); WHITE BLOOD COUNT 7.5 X10^3/uL (3.6-10.0)
[2018-03-08 05:32] LABS: ALANINE AMINOTRANSFERASE 34 Units/L (12-78); ALBUMIN 2.8 g/dL (3.4-5.0); ALKALINE PHOSPHATASE 176 Units/L (46-116); ASPARTATE AMINO TRANSFERASE 37 Units/L (15-37); BLOOD UREA NITROGEN 13 mg/dL (7-18); CALCIUM 8.4 mg/dL (8.5-10.1); CHLORIDE 105 mmol/L (98-107); COR CA(FOR HYPOALB) 9.4 mg/dL (8.5-10.1); SODIUM 140 mmol/L (136-145); TOTAL PROTEIN 6.7 g/dL (6.4-8.2); eGFR NON BLACK RACES > 60 (>60)
[2018-03-08] MEDS: SYNTHROID 50 mcg TAB PO SCH (05:59)
[2018-03-08] MEDS: WELCHOL PO SCH (05:59)
[2018-03-08] MEDS: NS 1000 ML 1,000 ML IV SCH (06:34)
[2018-03-08] MEDS: LOVENOX INJ 30 MG SYR SC SCH (08:59)
[2018-03-08] MEDS: ARICEPT TAB 5 MG PO SCH (08:59)
[2018-03-08] MEDS: PAXIL PO SCH (08:59)
[2018-03-08] MEDS: CIPRO IV 400 MG PREMIX* 400 MG/200 ML IV.SOLN. IV SCH (08:59)
[2018-03-08] MEDS: NAMENDA TAB 10 MG PO SCH (09:00)
[2018-03-08] MEDS: PLAVIX PO SCH (09:00)
[2018-03-08] MEDS: JANUVIA PO SCH ×2 (09:00→09:01)
[2018-03-08] MEDS: PROCARDIA XL PO SCH (09:00)
[2018-03-08] MEDS: GLUCOTROL XL PO SCH (09:01)
[2018-03-08] MEDS: NexIUM PO SCH (09:01)
[2018-03-08] MEDS: LANTUS SC SCH (09:01)
[2018-03-08 09:12] VITALS: BP 139/62
[2018-03-08] MEDS: HumuLIN R SUBCUT PRN (11:52)
== END 2018-03-08 12:00 | disposition home health service (06) | DRG 690 ==
LOC: MED/SURG
PROVIDERS: ADMIT Internal Medicine; ATTEND Internal Medicine
DX: M54.5 Low back pain; R26.89 Other abnormalities of gait and mobility; I25.10 Atherosclerotic heart disease of native coronary artery without angina pectoris; R62.7 Adult failure to thrive; R29.6 Repeated falls; B95.7 Other staphylococcus as the cause of diseases classified elsewhere; N39.0 Urinary tract infection, site not specified; E10.65 Type 1 diabetes mellitus with hyperglycemia; I10 Essential (primary) hypertension; R53.1 Weakness; R41.82 Altered mental status, unspecified
CPT/HCPCS: 36415; 70450; 71020; 71046; 80053; 81001; 83036; 83735; 85025; 87086; 87088; 87186; 94760; 97110; 97116; 97162; 97167; 97535; A4222; G0378; J0696; J0744; J1650; J1815; J3475; J7030

== ENCOUNTER 2018-04-28 12:22 | Inpatient (IN) ==
[2018-04-28] MEDS ORDERED: HumuLIN R SUBCUT PRN (12:30)
--- NOTE | 2018-04-28 13:38 | DR.H&P ---
H&P - History & Physical for Day of: H&P Date: 04/28/18 - Chief Complaint Chief Complaint: UTI, WEAKNESS, FALLS - History of Present Illness History of Present Illness: PT IS 87 WF DIRECT ADMIT FROM DR GARCIA OFFICE WITH CO GENERALIZED WEAKNESS WITH MULTIPLE FALLS. PT HAD FALL 2 WEEKS AGO WITH LUMBAR AND RIGHT HIP INJURY, XRAYS NEGATIVE FOR FRACTURE. FAMILY CONCERNED PT "STILL CANT WALK". PT HAD WEAKNESS AND UTI, HOME HEALTH INSERTED [facility] ON WEDNESDAY 04/26, PT STARTED ON MACROBID AT THAT TIME. PT STATES SHE STILL FEELS "WEAK", FAMILY REPORTS CONFUSION. - Past Medical History Past Medical History: Diabetes, COPD, Arthritis - Past Surgical History Surgical History: Angioplasty/Stents, Hysterectomy, Other - Family History Family Medical History: Diabetes Mellitus, Hypertension - Social History Does patient currently use any type of tobacco product: No Have you used tobacco products in the last 12 months: No Type of Tobacco Use: None Does any household member use tobacco: No Alcohol Use: None Drug Use: None - Medications Home Medications: acetaminophen Allergy (Verified 04/28/18 13:25) pyrilamine Allergy (Verified 04/28/18 13:25) CONTINUE taking the following medications citalopram 20 mg PO HS 04/28/18 [History] cyclosporine [Restasis] 1 drp OPHTHALMIC (EYE) BID 04/28/18 [History] doxepin 25 mg PO HS 04/28/18 [History] fluoxetine 20 mg PO DAILY 04/28/18 [History] nitrofurantoin macrocrystal 100 mg PO BID 04/28/18 [History] - Review of Systems Constitutional: Fever, Chills, Weakness, Malaise Eyes: No Symptoms Reported ENT: No Symptoms Reported Respiratory: SOB with Excertion Cardiovascular: No Symptoms Reported Gastrointestinal: Nausea Genitourinary: Dysuria, Frequency Musculoskeletal: Back Pain, Leg Pain Skin: No Symptoms Reported Neurological: Weakness, Confusion - Physical Exam Vital Signs: Blood Pressure [Right Arm] 139/62 Blood Pressure [Left Arm] 134/80 Blood Pressure 139/62 Oriented: Person Eyes: Normal Ear: Normal Nose: Normal Throat: Normal Respiratory: RLL Diminished, LLL Diminished Cardiovascular: Normal, Other (PACER MAKER PRESENT). negative: Murmur : Normal Auscultation: Bowel Sounds: Normal Tenderness: Suprapubic, Mild Skin: Normal Musculoskeletal: Right, Hip, Back:Thoracic, Back:Lumbar, Motor Deficit Psychiatric: Anxiety Affect: Anxious Speech Pattern: Clear, Appropriate - Assessment/Plan (1) Altered mental state Status: Acute Plan: R/T UTI, HX MULTIPLE FALLS. ADMIT, BLOOD AND URINE CULTURES, CXR. BLOOD SUGAR AND BLOOD PRESSURE CONTROL (2) Generalized weakness Status: Acute (3) History of atrial fibrillation Status: Acute (4) Adult failure to thrive Status: Acute - Allergies Allergies/Adverse Reactions: Allergies Allergy/AdvReac Type Severity Reaction Status Date / Time acetaminophen Allergy Verified 04/28/18 13:25 pyrilamine Allergy Verified 04/28/18 13:25
[2018-04-28] MEDS: DUONEB 0.5 MG/3 MG NEB SCH ×3 (14:14→20:05)
[2018-04-28 14:21] LABS: BASOPHILS # (AUTO) 0.1 X10^3/uL (0.0-0.1); BASOPHILS % (AUTO) 0.8 % (0.2-1.0); EOSINOPHILS # (AUTO) 0.4 x10^3/uL (0.0-0.2); EOSINOPHILS % (AUTO) 3.6 % (0.9-2.9); HEMATOCRIT 39.7 % (36.0-47.0); HEMOGLOBIN 13.5 g/dL (12.0-16.0); LYMPHOCYTES % (AUTO) 9.1 % (21.0-51.0); MEAN CORPUSCULAR HEMOGLOBIN 27.1 pg (27.0-34.0); MEAN CORPUSCULAR VOLUME 79.6 fL (80.0-100.0); MEAN PLATELET VOLUME 7.9 fL (7.4-11.0); MONOCYTES # (AUTO) 0.8 x10^3/uL (0.3-0.8); MONOCYTES % (AUTO) 7.6 % (0.0-13.0); NEUTROPHILS # (AUTO) 8.3 x10^3/uL (2.2-4.8); NEUTROPHILS % (AUTO) 78.9 % (42.0-75.0); PLATELET COUNT 324 X10^3/uL (150.0-450.0); RED BLOOD COUNT 4.99 X10^6/uL (3.5-5.4); WHITE BLOOD COUNT 10.5 X10^3/uL (3.6-10.0)
[2018-04-28 14:27] LABS: BILIRUBIN,URINE NEGATIVE (NEGATIVE); BLOOD/HEMOGLOBIN,URINE 1+ (NEGATIVE); GLUCOSE, URINE NEGATIVE (NEGATIVE); KETONES,URINE NEGATIVE (NEGATIVE); LEUKOCYTE ESTERASE ,URINE 1+ (NEGATIVE); NITRITES,URINE NEGATIVE (NEGATIVE); PROTEIN,URINE 1+ (NEGATIVE); UROBILINOGEN,URINE NORMAL (NORMAL)
[2018-04-28 14:33] LABS: APPEARANCE,URINE SLIGHTLY HAZY (CLEAR); BACTERIA,URINE 2+ /HPF (NEGATIVE); COLOR,URINE YELLOW (YELLOW); SQUAMOUS EPITHELIAL CELL,UR RARE /HPF (NEGATIVE)
[2018-04-28 14:35] LABS: ALBUMIN 3.1 g/dL (3.4-5.0); CALCIUM 9.2 mg/dL (8.5-10.1); CARBON DIOXIDE 31.9 mmol/L (21-32); COR CA(FOR HYPOALB) 9.9 mg/dL (8.5-10.1); CREATININE 1.32 mg/dL (0.55-1.02); TOTAL PROTEIN 8.2 g/dL (6.4-8.2)
[2018-04-28 15:51] VITALS: BMI 22.8
--- NOTE | 2018-04-28 16:02 | CT ---
CT brain without contrast Indication:Confusion and generalized weakness Comparison: 03/01/18 Technique: Multiple axial images of the brain were obtained from the skull base to the vertex without administration of IV contrast. Findings: No change in moderate generalized cerebral atrophy with mild bilateral periventricular and deep white matter hypoattenuation No acute intraparenchymal hemorrhage or mass can be identified. No extra-axial fluid collections are seen. No alteration in the attenuation of the brain parenchyma can be identified to suggest acute or subacute ischemic change. The ventricular system is symmetric and nondilated. The extracranial structures are grossly unremarkable. IMPRESSION: 1. No acute intracranial process is identified. Reported By:
[2018-04-28] MEDS: ROCEPHIN VIAL 1 GRAM IVP SCH (16:12)
--- NOTE | 2018-04-28 16:32 | RAD ---
HISTORY: Coronary arterial disease. Congestive heart failure. Exam: AP portable chest Comparison: 03/03/2018 Findings: There again noted to be findings of chronic interstitial fibrosis. The lung markings are slightly more prominent than on the prior examinations suggesting developing interstitial edema or interstitial pneumonia. There appears to be mild focal scarring in the right mid lung and right lung base. Mild cardiomegaly is noted. Moderate tortuosity of the aorta is present. Electronic cardiac device is present on the right and its leads appear to be in appropriate position. No acute bony abnormalities are identified. IMPRESSION: 1. Findings of chronic interstitial scarring. The lung markings are slightly more prominent suggestive of either technique of the film versus minimal interstitial edema or pneumonia. Clinical correlation is recommended. Reported By:
[2018-04-28] MEDS: SNACK - Diabetic Appropriate PO SCH (21:30)
[2018-04-28] MEDS: HumuLIN R SUBCUT PRN (21:57)
[2018-04-28] MEDS: RESTORIL CAP 15 MG PO PRN (21:59)
[2018-04-29 05:32] LABS: BASOPHILS # (AUTO) 0.1 X10^3/uL (0.0-0.1); BASOPHILS % (AUTO) 0.6 % (0.2-1.0); EOSINOPHILS # (AUTO) 0.5 x10^3/uL (0.0-0.2); EOSINOPHILS % (AUTO) 5.4 % (0.9-2.9); HEMATOCRIT 35.5 % (36.0-47.0); HEMOGLOBIN 12.1 g/dL (12.0-16.0); LYMPHOCYTES % (AUTO) 10.3 % (21.0-51.0); MEAN CORPUSCULAR HEMOGLOBIN 27.2 pg (27.0-34.0); MEAN CORPUSCULAR VOLUME 80.1 fL (80.0-100.0); MEAN PLATELET VOLUME 7.7 fL (7.4-11.0); MONOCYTES # (AUTO) 0.9 x10^3/uL (0.3-0.8); MONOCYTES % (AUTO) 9.6 % (0.0-13.0); NEUTROPHILS # (AUTO) 6.9 x10^3/uL (2.2-4.8); NEUTROPHILS % (AUTO) 74.1 % (42.0-75.0); PLATELET COUNT 305 X10^3/uL (150.0-450.0); RED BLOOD COUNT 4.43 X10^6/uL (3.5-5.4); WHITE BLOOD COUNT 9.3 X10^3/uL (3.6-10.0)
[2018-04-29 05:52] LABS: ALBUMIN 2.6 g/dL (3.4-5.0); CALCIUM 8.6 mg/dL (8.5-10.1); COR CA(FOR HYPOALB) 9.7 mg/dL (8.5-10.1); CREATININE 1.29 mg/dL (0.55-1.02); TOTAL PROTEIN 7.2 g/dL (6.4-8.2)
[2018-04-29] MEDS: ROCEPHIN VIAL 1 GRAM IVP SCH (09:54)
[2018-04-29] MEDS: DUONEB 0.5 MG/3 MG NEB SCH ×4 (10:01→20:26)
[2018-04-29] MEDS: HumuLIN R SUBCUT PRN ×3 (11:51→20:41)
--- NOTE | 2018-04-29 18:18 | PCM.PROG ---
Progress Note - Progress Note for Day of Date of Exam: 04/29/18 - Subjective Subjective: 87 WF ADMITTED ON 04/28 WITH UTI, PYELONEHRITIS, FLANK PAIN, WEAKNESS, INCREASED CONFUSION PER FAMILY WITH FALLS. PT IS CURRENTLY ON IV ROCEHIN WITH CULTURE +GRAM NEG RODS. PT HAD RECEIVED GENTLE IV HYDRATION AND CORRECTION OF HYPONATREMIA. PT CONTINUES TO FEEL WEAK THIS AM. DISCUSSED WITH FAMILY POSSIBLE REHAB THERAPY AFTER RESOLUTION OF ACUTE ILLNESS. - Past Medical Family Social History Past Med/Fam/Surg Hx: No changes since H&P Allergies: Allergies acetaminophen Allergy (Verified 04/28/18 13:25) pyrilamine Allergy (Verified 04/28/18 13:25) - Review of Systems ROS: No change since H&P - Vital Signs and I&O's Vital Signs: Temperature 98.1 F Pulse Rate [Left Brachial] 88 Pulse Rate 72 Respiratory Rate 20 Blood Pressure [Right Arm] 168/77 Blood Pressure [Left Arm] 145/68 Blood Pressure 139/62 O2 Sat by Pulse Oximetry 96 Intake and Output: Intake & Output 04/27/18 04/28/18 04/29/18 04/30/18 11:59 11:59 11:59 11:59 Intake Total 500 / 500 360 / 360 Output Total 1500 / 1500 1200 / 1200 Balance -1000 / -1000 -840 / -840 - Physical Exam Oriented: Person Eyes: Normal Ear: Normal Nose: Normal Throat: Normal Respiratory: Diminished Cardiovascular: Normal, Other (PACER MAKER PRESENT). negative: Murmur : Normal Auscultation: Bowel Sounds: Normal Tenderness: Suprapubic, Mild Skin: Normal Musculoskeletal: Right, Hip, Back:Thoracic, Back:Lumbar, Motor Deficit Psychiatric: Anxiety Affect: Anxious Speech Pattern: Clear, Appropriate - Laboratory and Diagnostics Result Diagrams: 04/29/18 05:16 04/29/18 05:16 Labs: 04/28/18 14:15 Urine,Catheterized Urine Culture - Preliminary Laboratory WBC 9.3 X10^3/uL (3.6-10.0) 04/29/18 05:16 RBC 4.43 X10^6/uL (3.5-5.4) 04/29/18 05:16 Hgb 12.1 g/dL (12.0-16.0) 04/29/18 05:16 Hct 35.5 % (36.0-47.0) L 04/29/18 05:16 MCV 80.1 fL (80.0-100.0) 04/29/18 05:16 MCH 27.2 pg (27.0-34.0) 04/29/18 05:16 MCHC 34.0 g/dL (33.0-35.0) 04/29/18 05:16 RDW 13.0 % (11.6-16.5) 04/29/18 05:16 Plt Count 305 X10^3/uL (150.0-450.0) 04/29/18 05:16 MPV 7.7 fL (7.4-11.0) 04/29/18 05:16 Neut % (Auto) 74.1 % (42.0-75.0) 04/29/18 05:16 Lymph % (Auto) 10.3 % (21.0-51.0) L 04/29/18 05:16 [place] % (Auto) 9.6 % (0.0-13.0) 04/29/18 05:16 Eos % (Auto) 5.4 % (0.9-2.9) H 04/29/18 05:16 Baso % (Auto) 0.6 % (0.2-1.0) 04/29/18 05:16 Neut # (Auto) 6.9 x10^3/uL (2.2-4.8) H 04/29/18 05:16 Lymph # (Auto) 1.0 X10^3/uL (1.3-2.9) L 04/29/18 05:16 [place] # (Auto) 0.9 x10^3/uL (0.3-0.8) H 04/29/18 05:16 Eos # (Auto) 0.5 x10^3/uL (0.0-0.2) H 04/29/18 05:16 Baso # (Auto) 0.1 X10^3/uL (0.0-0.1) 04/29/18 05:16 Absolute Nucleated RBC 0.0 /100WBC 04/29/18 05:16 Sodium 136 mmol/L (136-145) 04/29/18 05:16 Corrected Sodium 137 mmol/L (136-145) 04/29/18 05:16 Potassium 4.0 mmol/L (3.5-5.1) 04/29/18 05:16 Chloride 99 mmol/L (98-107) 04/29/18 05:16 Carbon Dioxide 30.0 mmol/L (21-32) 04/29/18 05:16 BUN 15 mg/dL (7-18) 04/29/18 05:16 Creatinine 1.29 mg/dL (0.55-1.02) H 04/29/18 05:16 Est GFR (MDRD) Af Amer 50 (>60) L 04/29/18 05:16 Est GFR (MDRD) Non-Af 42 (>60) L 04/29/18 05:16 Glucose 143 mg/dL (65-99) H 04/29/18 05:16 POC Glucose (mg/dL) 313 mg/dL (65-99) H 04/29/18 16:18 Calcium 8.6 mg/dL (8.5-10.1) 04/29/18 05:16 Corrected Calcium 9.7 mg/dL (8.5-10.1) 04/29/18 05:16 Total Bilirubin 0.50 mg/dL (0.2-1.0) 04/29/18 05:16 AST 39 Units/L (15-37) H 04/29/18 05:16 ALT 27 Units/L (12-78) 04/29/18 05:16 Alkaline Phosphatase 279 Units/L (46-116) H 04/29/18 05:16 Total Protein 7.2 g/dL (6.4-8.2) 04/29/18 05:16 Albumin 2.6 g/dL (3.4-5.0) L 04/29/18 05:16 Globulin 4.6 g/dL (2.5-4.5) H 04/29/18 05:16 Albumin/Globulin Ratio 0.6 Ratio (1.1-2.1) L 04/29/18 05:16 Specimen Type Catherized urine 04/28/18 14:15 Urine Color Yellow (YELLOW) 04/28/18 14:15 Urine Appearance Slightly hazy (CLEAR) 04/28/18 14:15 Urine pH 6.0 (5.0 - 8.0) 04/28/18 14:15 Ur Specific [place] 1.015 (1.000-1.030) 04/28/18 14:15 Urine Protein 1+ (NEGATIVE) 04/28/18 14:15 Urine Glucose (UA) Negative (NEGATIVE) 04/28/18 14:15 Urine Ketones Negative (NEGATIVE) 04/28/18 14:15 Urine Occult Blood 1+ (NEGATIVE) 04/28/18 14:15 Urine Nitrite Negative (NEGATIVE) 04/28/18 14:15 Urine Bilirubin Negative (NEGATIVE) 04/28/18 14:15 Urine Urobilinogen Normal (NORMAL) 04/28/18 14:15 Ur Leukocyte Esterase 1+ (NEGATIVE) 04/28/18 14:15 Urine RBC 3-5 /HPF (NONE SEEN) 04/28/18 14:15 Urine WBC 3-5 /HPF (NONE SEEN) 04/28/18 14:15 Ur Squamous Epith Cells Rare /HPF (NEGATIVE) 04/28/18 14:15 Urine Bacteria 2+ /HPF (NEGATIVE) 04/28/18 14:15 Ur Culture Indicated? Yes/culture set up 04/28/18 14:15 - Plan (1) Altered mental state Status: Acute Plan: DUE TO UTI, PYELONEPHRITIS HX MULTIPLE FALLS. BLOOD AND URINE CULTURES, CXR ON ADMISSION. BLOOD SUGAR AND BLOOD PRESSURE CONTROL (2) Generalized weakness Status: Acute (3) History of atrial fibrillation Status: Acute (4) Adult failure to thrive Status: Acute (5) Pyelonephritis Status: Acute Plan: IV ATBX, GENTLE IV HYDRATION. I & OS, BLOOD AND URINE CULTURES COLLECTED ON ADMISSION
[2018-04-29] MEDS: SNACK - Diabetic Appropriate PO SCH (20:35)
[2018-04-29] MEDS: RESTORIL CAP 15 MG PO PRN (20:40)
[2018-04-30 05:19] LABS: BASOPHILS # (AUTO) 0.1 X10^3/uL (0.0-0.1); BASOPHILS % (AUTO) 0.8 % (0.2-1.0); EOSINOPHILS # (AUTO) 0.5 x10^3/uL (0.0-0.2); EOSINOPHILS % (AUTO) 6.5 % (0.9-2.9); HEMATOCRIT 36.8 % (36.0-47.0); HEMOGLOBIN 12.2 g/dL (12.0-16.0); LYMPHOCYTES # (AUTO) 0.9 X10^3/uL (1.3-2.9); LYMPHOCYTES % (AUTO) 11.7 % (21.0-51.0); MEAN CORPUSCULAR HEMOGLOBIN 26.8 pg (27.0-34.0); MEAN CORPUSCULAR HGB CONC 33.1 g/dL (33.0-35.0); MEAN CORPUSCULAR VOLUME 80.8 fL (80.0-100.0); MEAN PLATELET VOLUME 7.9 fL (7.4-11.0); MONOCYTES # (AUTO) 0.8 x10^3/uL (0.3-0.8); MONOCYTES % (AUTO) 10.5 % (0.0-13.0); NEUTROPHILS # (AUTO) 5.7 x10^3/uL (2.2-4.8); NEUTROPHILS % (AUTO) 70.5 % (42.0-75.0); PLATELET COUNT 307 X10^3/uL (150.0-450.0); RED BLOOD COUNT 4.56 X10^6/uL (3.5-5.4); RED CELL DISTRIBUTION WIDTH 13.3 % (11.6-16.5); WHITE BLOOD COUNT 8.1 X10^3/uL (3.6-10.0)
[2018-04-30 05:32] LABS: ALANINE AMINOTRANSFERASE 28 Units/L (12-78); ALBUMIN 2.6 g/dL (3.4-5.0); ALKALINE PHOSPHATASE 283 Units/L (46-116); ASPARTATE AMINO TRANSFERASE 41 Units/L (15-37); BLOOD UREA NITROGEN 13 mg/dL (7-18); CALCIUM 8.6 mg/dL (8.5-10.1); CHLORIDE 100 mmol/L (98-107); COR CA(FOR HYPOALB) 9.7 mg/dL (8.5-10.1); COR NA(FOR HYPERGLY) 140 mmol/L (136-145); CREATININE 1.08 mg/dL (0.55-1.02); SODIUM 138 mmol/L (136-145); TOTAL PROTEIN 7.3 g/dL (6.4-8.2); eGFR NON BLACK RACES 51 (>60)
[2018-04-30] MEDS: ROCEPHIN VIAL 1 GRAM IVP SCH (09:15)
[2018-04-30] MEDS: DUONEB 0.5 MG/3 MG NEB SCH ×4 (09:25→20:25)
[2018-04-30] MEDS: HumuLIN R SUBCUT PRN ×2 (13:24→16:15)
--- NOTE | 2018-04-30 13:57 | PCM.PROG ---
Progress Note - Progress Note for Day of Date of Exam: 04/30/18 - Subjective Subjective: 87 WF ADMITTED ON 04/28 WITH UTI, PYELONEHRITIS, FLANK PAIN, WEAKNESS, INCREASED CONFUSION PER FAMILY WITH FALLS. PT IS CURRENTLY ON IV ROCEHIN WITH CULTURE +GRAM NEG RODS, SENSATIVE TO ROCEPHIN PT HAD RECEIVED GENTLE IV HYDRATION AND CORRECTION OF HYPONATREMIA. BUN 13, CREAT 1.08. PT CONTINUES TO FEEL WEAK THIS AM. DISCUSSED WITH FAMILY POSSIBLE REHAB THERAPY AFTER RESOLUTION OF ACUTE ILLNESS. - Past Medical Family Social History Past Med/Fam/Surg Hx: No changes since H&P Allergies: Allergies acetaminophen Allergy (Verified 04/28/18 13:25) pyrilamine Allergy (Verified 04/28/18 13:25) - Review of Systems ROS: No change since H&P - Vital Signs and I&O's Vital Signs: Temperature 98.3 F Pulse Rate [Left Brachial] 88 Pulse Rate 82 Respiratory Rate 17 Blood Pressure [Right Arm] 178/82 Blood Pressure [Left Arm] 145/68 Blood Pressure 139/62 O2 Sat by Pulse Oximetry 94 Intake and Output: Intake & Output 04/28/18 04/29/18 04/30/18 05/01/18 11:59 11:59 11:59 11:59 Intake Total 500 / 500 940 / 940 Output Total 1500 / 1500 3300 / 3300 Balance -1000 / -1000 -2360 / -2360 - Physical Exam Oriented: Person Eyes: Normal Ear: Normal Nose: Normal Throat: Normal Respiratory: Diminished Cardiovascular: Normal, Other (PACER MAKER PRESENT). negative: Murmur : Normal Auscultation: Bowel Sounds: Normal Tenderness: Suprapubic, Mild Skin: Normal Musculoskeletal: Right, Hip, Back:Thoracic, Back:Lumbar, Motor Deficit Psychiatric: Anxiety Affect: Anxious Speech Pattern: Clear, Appropriate - Laboratory and Diagnostics Result Diagrams: 04/30/18 04:38 04/30/18 04:38 Labs: 04/28/18 14:11 Blood Blood Culture - Preliminary 04/28/18 14:04 Blood Blood Culture - Preliminary 04/28/18 14:15 Urine,Catheterized Urine Culture - Final [facility] WBC 8.1 X10^3/uL (3.6-10.0) 04/30/18 04:38 RBC 4.56 X10^6/uL (3.5-5.4) 04/30/18 04:38 Hgb 12.2 g/dL (12.0-16.0) 04/30/18 04:38 Hct 36.8 % (36.0-47.0) 04/30/18 04:38 MCV 80.8 fL (80.0-100.0) 04/30/18 04:38 MCH 26.8 pg (27.0-34.0) L 04/30/18 04:38 MCHC 33.1 g/dL (33.0-35.0) 04/30/18 04:38 RDW 13.3 % (11.6-16.5) 04/30/18 04:38 Plt Count 307 X10^3/uL (150.0-450.0) 04/30/18 04:38 MPV 7.9 fL (7.4-11.0) 04/30/18 04:38 Neut % (Auto) 70.5 % (42.0-75.0) 04/30/18 04:38 Lymph % (Auto) 11.7 % (21.0-51.0) L 04/30/18 04:38 [place] % (Auto) 10.5 % (0.0-13.0) 04/30/18 04:38 Eos % (Auto) 6.5 % (0.9-2.9) H 04/30/18 04:38 Baso % (Auto) 0.8 % (0.2-1.0) 04/30/18 04:38 Neut # (Auto) 5.7 x10^3/uL (2.2-4.8) H 04/30/18 04:38 Lymph # (Auto) 0.9 X10^3/uL (1.3-2.9) L 04/30/18 04:38 [place] # (Auto) 0.8 x10^3/uL (0.3-0.8) 04/30/18 04:38 Eos # (Auto) 0.5 x10^3/uL (0.0-0.2) H 04/30/18 04:38 Baso # (Auto) 0.1 X10^3/uL (0.0-0.1) 04/30/18 04:38 Absolute Nucleated RBC 0.0 /100WBC 04/30/18 04:38 Sodium 138 mmol/L (136-145) 04/30/18 04:38 Corrected Sodium 140 mmol/L (136-145) 04/30/18 04:38 Potassium 3.6 mmol/L (3.5-5.1) 04/30/18 04:38 Chloride 100 mmol/L (98-107) 04/30/18 04:38 Carbon Dioxide 30.0 mmol/L (21-32) 04/30/18 04:38 BUN 13 mg/dL (7-18) 04/30/18 04:38 Creatinine 1.08 mg/dL (0.55-1.02) H 04/30/18 04:38 Est GFR (MDRD) Af Amer > 60 (>60) 04/30/18 04:38 Est GFR (MDRD) Non-Af 51 (>60) L 04/30/18 04:38 Glucose 182 mg/dL (65-99) H 04/30/18 04:38 POC Glucose (mg/dL) 366 mg/dL (65-99) H 04/30/18 10:37 Calcium 8.6 mg/dL (8.5-10.1) 04/30/18 04:38 Corrected Calcium 9.7 mg/dL (8.5-10.1) 04/30/18 04:38 Total Bilirubin 0.40 mg/dL (0.2-1.0) 04/30/18 04:38 AST 41 Units/L (15-37) H 04/30/18 04:38 ALT 28 Units/L (12-78) 04/30/18 04:38 Alkaline Phosphatase 283 Units/L (46-116) H 04/30/18 04:38 Total Protein 7.3 g/dL (6.4-8.2) 04/30/18 04:38 Albumin 2.6 g/dL (3.4-5.0) L 04/30/18 04:38 Globulin 4.7 g/dL (2.5-4.5) H 04/30/18 04:38 Albumin/Globulin Ratio 0.6 Ratio (1.1-2.1) L 04/30/18 04:38 Specimen Type Catherized urine 04/28/18 14:15 Urine Color Yellow (YELLOW) 04/28/18 14:15 Urine Appearance Slightly hazy (CLEAR) 04/28/18 14:15 Urine pH 6.0 (5.0 - 8.0) 04/28/18 14:15 Ur Specific [place] 1.015 (1.000-1.030) 04/28/18 14:15 Urine Protein 1+ (NEGATIVE) 04/28/18 14:15 Urine Glucose (UA) Negative (NEGATIVE) 04/28/18 14:15 Urine Ketones Negative (NEGATIVE) 04/28/18 14:15 Urine Occult Blood 1+ (NEGATIVE) 04/28/18 14:15 Urine Nitrite Negative (NEGATIVE) 04/28/18 14:15 Urine Bilirubin Negative (NEGATIVE) 04/28/18 14:15 Urine Urobilinogen Normal (NORMAL) 04/28/18 14:15 Ur Leukocyte Esterase 1+ (NEGATIVE) 04/28/18 14:15 Urine RBC 3-5 /HPF (NONE SEEN) 04/28/18 14:15 Urine WBC 3-5 /HPF (NONE SEEN) 04/28/18 14:15 Ur Squamous Epith Cells Rare /HPF (NEGATIVE) 04/28/18 14:15 Urine Bacteria 2+ /HPF (NEGATIVE) 04/28/18 14:15 Ur Culture Indicated? Yes/culture set up 04/28/18 14:15 - Plan (1) Altered mental state Status: Acute Plan: DUE TO UTI, PYELONEPHRITIS HX MULTIPLE FALLS. BLOOD AND URINE CULTURES, CXR ON ADMISSION. BLOOD SUGAR AND BLOOD PRESSURE CONTROL (2) Generalized weakness Status: Acute (3) History of atrial fibrillation Status: Acute (4) Adult failure to thrive Status: Acute (5) Pyelonephritis Status: Acute Plan: IV ATBX, GENTLE IV HYDRATION. I & OS, BLOOD AND URINE CULTURES COLLECTED ON ADMISSION
[2018-04-30] MEDS: PLAVIX PO SCH (14:59)
[2018-04-30] MEDS: LANTUS SC SCH ×2 (15:00→20:51)
[2018-04-30] MEDS: JANUVIA PO SCH (15:01)
[2018-04-30] MEDS ORDERED: SNACK - Diabetic Appropriate PO SCH (20:00)
[2018-04-30] MEDS ORDERED: LANTISEPTIC TOP PRN (20:19)
[2018-04-30] MEDS: LIPITOR TAB 40 MG PO SCH (20:36)
[2018-04-30] MEDS: CELEXA PO SCH (20:36)
[2018-04-30] MEDS: WELCHOL PO SCH (20:36)
[2018-04-30] MEDS: SNACK - Diabetic Appropriate PO SCH (20:37)
[2018-04-30] MEDS: SINEquan PO SCH (20:44)
[2018-04-30] MEDS: RESTORIL CAP 15 MG PO PRN (20:44)
[2018-04-30] MEDS: CYCLOSPORINE OP SCH (20:51)
[2018-05-01 05:27] LABS: BASOPHILS # (AUTO) 0.1 X10^3/uL (0.0-0.1); BASOPHILS % (AUTO) 1.2 % (0.2-1.0); EOSINOPHILS # (AUTO) 0.6 x10^3/uL (0.0-0.2); EOSINOPHILS % (AUTO) 6.9 % (0.9-2.9); HEMATOCRIT 37.1 % (36.0-47.0); HEMOGLOBIN 12.3 g/dL (12.0-16.0); LYMPHOCYTES # (AUTO) 1.2 X10^3/uL (1.3-2.9); LYMPHOCYTES % (AUTO) 14.5 % (21.0-51.0); MEAN CORPUSCULAR HEMOGLOBIN 26.9 pg (27.0-34.0); MEAN CORPUSCULAR VOLUME 81.5 fL (80.0-100.0); MEAN PLATELET VOLUME 8.3 fL (7.4-11.0); MONOCYTES # (AUTO) 0.9 x10^3/uL (0.3-0.8); MONOCYTES % (AUTO) 10.7 % (0.0-13.0); NEUTROPHILS # (AUTO) 5.5 x10^3/uL (2.2-4.8); NEUTROPHILS % (AUTO) 66.7 % (42.0-75.0); PLATELET COUNT 341 X10^3/uL (150.0-450.0); RED BLOOD COUNT 4.55 X10^6/uL (3.5-5.4); RED CELL DISTRIBUTION WIDTH 13.4 % (11.6-16.5); WHITE BLOOD COUNT 8.2 X10^3/uL (3.6-10.0)
[2018-05-01 05:36] LABS: ALBUMIN 2.5 g/dL (3.4-5.0); CARBON DIOXIDE 29.8 mmol/L (21-32); COR CA(FOR HYPOALB) 10.2 mg/dL (8.5-10.1); CREATININE 1.22 mg/dL (0.55-1.02); TOTAL PROTEIN 7.2 g/dL (6.4-8.2)
[2018-05-01] MEDS: HumuLIN R SUBCUT PRN ×3 (05:45→21:06)
[2018-05-01] MEDS ORDERED: MAGNESIUM SULFATE 1 GRAM/100 mL PREMIX 1 GM/100 ML BAG IV PRN (06:24)
[2018-05-01] MEDS ORDERED: POTASSIUM CHLORIDE LIQ 20 MEQ UDC PO PRN (06:24)
[2018-05-01] MEDS ORDERED: MICRO K EXTEN CAP 10 MEQ PO PRN (06:24)
[2018-05-01] MEDS ORDERED: POTASSIUM CHL 40 MEQ/NS 0.45% 500 ML IV PRN (06:24)
[2018-05-01] MEDS ORDERED: K-RIDER 10 MEQ/NS 100 ML 10 MEQ/100 ML BAG IV PRN (06:24)
[2018-05-01] MEDS ORDERED: KLOR-CON PO PRN (06:24)
[2018-05-01] MEDS ORDERED: POTASSIUM CHL 60 MEQ/NS 0.45% 500 ML IV PRN (06:24)
[2018-05-01] MEDS ORDERED: K-DUR TAB 20 MEQ PO PRN (06:24)
[2018-05-01] MEDS: SYNTHROID 50 mcg TAB PO SCH (08:53)
[2018-05-01] MEDS: JANUVIA PO SCH (08:53)
[2018-05-01] MEDS: WELCHOL PO SCH ×2 (08:53→21:05)
[2018-05-01] MEDS: ROCEPHIN VIAL 1 GRAM IVP SCH (08:53)
[2018-05-01] MEDS: NexIUM PO SCH (08:53)
[2018-05-01] MEDS: GLUCOTROL XL PO SCH (08:53)
[2018-05-01] MEDS: PLAVIX PO SCH (08:54)
[2018-05-01] MEDS: LOVAZA PO SCH (08:54)
[2018-05-01] MEDS: CYCLOSPORINE OP SCH ×2 (08:54→21:08)
[2018-05-01] MEDS: DUONEB 0.5 MG/3 MG NEB SCH ×4 (09:59→20:21)
[2018-05-01] MEDS: LANTUS SC SCH ×2 (11:03→21:06)
[2018-05-01] MEDS: SNACK - Diabetic Appropriate PO SCH (20:45)
[2018-05-01] MEDS: SINEquan PO SCH (21:05)
[2018-05-01] MEDS: CELEXA PO SCH (21:05)
[2018-05-01] MEDS: LIPITOR TAB 40 MG PO SCH (21:05)
[2018-05-01] MEDS: RESTORIL CAP 15 MG PO PRN (21:06)
[2018-05-02 04:54] LABS: BASOPHILS # (AUTO) 0.1 X10^3/uL (0.0-0.1); BASOPHILS % (AUTO) 1.3 % (0.2-1.0); EOSINOPHILS # (AUTO) 0.5 x10^3/uL (0.0-0.2); EOSINOPHILS % (AUTO) 7.4 % (0.9-2.9); HEMATOCRIT 37.2 % (36.0-47.0); HEMOGLOBIN 12.3 g/dL (12.0-16.0); LYMPHOCYTES % (AUTO) 15.2 % (21.0-51.0); MEAN CORPUSCULAR HEMOGLOBIN 26.8 pg (27.0-34.0); MEAN CORPUSCULAR HGB CONC 33.2 g/dL (33.0-35.0); MEAN CORPUSCULAR VOLUME 80.8 fL (80.0-100.0); MEAN PLATELET VOLUME 8.2 fL (7.4-11.0); MONOCYTES # (AUTO) 0.7 x10^3/uL (0.3-0.8); MONOCYTES % (AUTO) 9.8 % (0.0-13.0); NEUTROPHILS # (AUTO) 4.5 x10^3/uL (2.2-4.8); NEUTROPHILS % (AUTO) 66.3 % (42.0-75.0); PLATELET COUNT 328 X10^3/uL (150.0-450.0); RED CELL DISTRIBUTION WIDTH 13.6 % (11.6-16.5); WHITE BLOOD COUNT 6.8 X10^3/uL (3.6-10.0)
[2018-05-02 05:05] LABS: ALBUMIN 2.5 g/dL (3.4-5.0); CALCIUM 8.9 mg/dL (8.5-10.1); CARBON DIOXIDE 29.2 mmol/L (21-32); COR CA(FOR HYPOALB) 10.1 mg/dL (8.5-10.1); CREATININE 1.25 mg/dL (0.55-1.02); TOTAL PROTEIN 7.2 g/dL (6.4-8.2)
[2018-05-02] MEDS: HumuLIN R SUBCUT PRN ×3 (05:45→20:57)
[2018-05-02] MEDS: DUONEB 0.5 MG/3 MG NEB SCH ×4 (08:13→21:08)
[2018-05-02] MEDS: LANTUS SC SCH ×2 (09:32→20:56)
[2018-05-02] MEDS: SYNTHROID 50 mcg TAB PO SCH (09:34)
[2018-05-02] MEDS: ROCEPHIN VIAL 1 GRAM IVP SCH (09:34)
[2018-05-02] MEDS: GLUCOTROL XL PO SCH (09:34)
[2018-05-02] MEDS: NexIUM PO SCH (09:34)
[2018-05-02] MEDS: WELCHOL PO SCH ×2 (09:34→20:55)
[2018-05-02] MEDS: JANUVIA PO SCH (09:34)
[2018-05-02] MEDS: PLAVIX PO SCH (09:44)
[2018-05-02] MEDS: CYCLOSPORINE OP SCH ×2 (09:44→20:56)
[2018-05-02] MEDS: LOVAZA PO SCH (09:44)
[2018-05-02] MEDS: SINEquan PO SCH (20:55)
[2018-05-02] MEDS: CELEXA PO SCH (20:55)
[2018-05-02] MEDS: SNACK - Diabetic Appropriate PO SCH (20:55)
[2018-05-02] MEDS: RESTORIL CAP 15 MG PO PRN (20:55)
[2018-05-02] MEDS: LIPITOR TAB 40 MG PO SCH (20:55)
[2018-05-03 05:21] LABS: BASOPHILS # (AUTO) 0.1 X10^3/uL (0.0-0.1); BASOPHILS % (AUTO) 0.8 % (0.2-1.0); EOSINOPHILS # (AUTO) 0.5 x10^3/uL (0.0-0.2); HEMATOCRIT 37.8 % (36.0-47.0); HEMOGLOBIN 12.7 g/dL (12.0-16.0); LYMPHOCYTES # (AUTO) 1.4 X10^3/uL (1.3-2.9); LYMPHOCYTES % (AUTO) 17.6 % (21.0-51.0); MEAN CORPUSCULAR HEMOGLOBIN 26.9 pg (27.0-34.0); MEAN CORPUSCULAR HGB CONC 33.6 g/dL (33.0-35.0); MEAN CORPUSCULAR VOLUME 79.9 fL (80.0-100.0); MEAN PLATELET VOLUME 8.1 fL (7.4-11.0); MONOCYTES # (AUTO) 0.8 x10^3/uL (0.3-0.8); MONOCYTES % (AUTO) 10.2 % (0.0-13.0); NEUTROPHILS # (AUTO) 5.3 x10^3/uL (2.2-4.8); NEUTROPHILS % (AUTO) 65.4 % (42.0-75.0); PLATELET COUNT 351 X10^3/uL (150.0-450.0); RED BLOOD COUNT 4.73 X10^6/uL (3.5-5.4); RED CELL DISTRIBUTION WIDTH 13.7 % (11.6-16.5)
[2018-05-03 05:30] LABS: ALANINE AMINOTRANSFERASE 35 Units/L (12-78); ALBUMIN 2.6 g/dL (3.4-5.0); ALKALINE PHOSPHATASE 311 Units/L (46-116); ASPARTATE AMINO TRANSFERASE 43 Units/L (15-37); BLOOD UREA NITROGEN 14 mg/dL (7-18); CHLORIDE 101 mmol/L (98-107); COR CA(FOR HYPOALB) 10.1 mg/dL (8.5-10.1); CREATININE 1.11 mg/dL (0.55-1.02); SODIUM 139 mmol/L (136-145); TOTAL PROTEIN 7.5 g/dL (6.4-8.2); eGFR NON BLACK RACES 49 (>60)
[2018-05-03] MEDS ORDERED: MILK OF MAGNESIA PO PRN (07:02)
[2018-05-03] MEDS ORDERED: COLACE CAP 100 MG PO PRN (07:02)
[2018-05-03] MEDS: DUONEB 0.5 MG/3 MG NEB SCH ×4 (08:23→20:51)
[2018-05-03] MEDS: WELCHOL PO SCH ×2 (09:02→20:32)
[2018-05-03] MEDS: SYNTHROID 50 mcg TAB PO SCH (09:03)
[2018-05-03] MEDS: GLUCOTROL XL PO SCH (09:03)
[2018-05-03] MEDS: JANUVIA PO SCH (09:03)
[2018-05-03] MEDS: NexIUM PO SCH (09:03)
[2018-05-03] MEDS: LANTUS SC SCH ×2 (09:04→21:17)
[2018-05-03] MEDS: PLAVIX PO SCH (09:04)
[2018-05-03] MEDS: ROCEPHIN VIAL 1 GRAM IVP SCH (09:04)
[2018-05-03] MEDS: CYCLOSPORINE OP SCH ×2 (09:05→21:23)
[2018-05-03] MEDS: LOVAZA PO SCH (09:05)
[2018-05-03] MEDS: HumuLIN R SUBCUT PRN ×2 (12:04→16:34)
[2018-05-03] MEDS: LOVENOX INJ 40 MG SYR SC SCH (16:10)
[2018-05-03] MEDS: LIPITOR TAB 40 MG PO SCH (20:32)
[2018-05-03] MEDS: SINEquan PO SCH (20:32)
[2018-05-03] MEDS: CELEXA PO SCH (20:32)
[2018-05-03] MEDS: SNACK - Diabetic Appropriate PO SCH ×2 (20:34→20:36)
[2018-05-03] MEDS: RESTORIL CAP 15 MG PO PRN (20:41)
[2018-05-04] MEDS ORDERED: PHENERGAN INJ 25 MG IM PRN (03:08)
[2018-05-04] MEDS ORDERED: ULTRAM PO PRN (03:08)
[2018-05-04] MEDS ORDERED: ULTRAM ONE (03:11)
[2018-05-04 05:25] LABS: BASOPHILS # (AUTO) 0.1 X10^3/uL (0.0-0.1); BASOPHILS % (AUTO) 0.8 % (0.2-1.0); EOSINOPHILS # (AUTO) 0.4 x10^3/uL (0.0-0.2); HEMATOCRIT 37.4 % (36.0-47.0); HEMOGLOBIN 12.3 g/dL (12.0-16.0); LYMPHOCYTES # (AUTO) 1.2 X10^3/uL (1.3-2.9); MEAN CORPUSCULAR HEMOGLOBIN 26.5 pg (27.0-34.0); MEAN CORPUSCULAR HGB CONC 32.8 g/dL (33.0-35.0); MEAN CORPUSCULAR VOLUME 80.9 fL (80.0-100.0); MONOCYTES # (AUTO) 0.6 x10^3/uL (0.3-0.8); NEUTROPHILS # (AUTO) 4.8 x10^3/uL (2.2-4.8); NEUTROPHILS % (AUTO) 67.2 % (42.0-75.0); PLATELET COUNT 345 X10^3/uL (150.0-450.0); RED BLOOD COUNT 4.63 X10^6/uL (3.5-5.4); RED CELL DISTRIBUTION WIDTH 13.4 % (11.6-16.5); WHITE BLOOD COUNT 7.1 X10^3/uL (3.6-10.0)
[2018-05-04 05:28] LABS: ALBUMIN 2.6 g/dL (3.4-5.0); CALCIUM 8.7 mg/dL (8.5-10.1); CARBON DIOXIDE 28.5 mmol/L (21-32); COR CA(FOR HYPOALB) 9.8 mg/dL (8.5-10.1); CREATININE 1.21 mg/dL (0.55-1.02); TOTAL PROTEIN 7.3 g/dL (6.4-8.2)
[2018-05-04] MEDS: HumuLIN R SUBCUT PRN ×2 (05:33→12:09)
[2018-05-04] MEDS: DUONEB 0.5 MG/3 MG NEB SCH ×2 (08:47→12:04)
[2018-05-04] MEDS: ROCEPHIN VIAL 1 GRAM IVP SCH (09:55)
[2018-05-04] MEDS: PLAVIX PO SCH (09:55)
[2018-05-04] MEDS: SYNTHROID 50 mcg TAB PO SCH (09:55)
[2018-05-04] MEDS: LOVENOX INJ 40 MG SYR SC SCH (09:55)
[2018-05-04] MEDS: JANUVIA PO SCH (09:55)
[2018-05-04] MEDS: WELCHOL PO SCH (09:55)
[2018-05-04] MEDS: LOVAZA PO SCH (09:57)
[2018-05-04] MEDS: NexIUM PO SCH (09:57)
[2018-05-04] MEDS: GLUCOTROL XL PO SCH (09:57)
[2018-05-04] MEDS: LANTUS SC SCH (09:58)
[2018-05-04] MEDS: CYCLOSPORINE OP SCH (09:59)
[2018-05-04 13:48] VITALS: BP 183/74
== END 2018-05-04 13:45 | DRG 690 ==
LOC: MED/SURG → OBSVTOIN 12:38 → MED/SURG 04-29 14:23
PROVIDERS: ADMIT Internal Medicine; ATTEND Internal Medicine
DX: Z95.0 Presence of cardiac pacemaker; E87.1 Hypo-osmolality and hyponatremia; I48.91 Unspecified atrial fibrillation; R53.1 Weakness; R62.7 Adult failure to thrive; E11.65 Type 2 diabetes mellitus with hyperglycemia; R40.4 Transient alteration of awareness; N10 Acute pyelonephritis; Z79.4 Long term (current) use of insulin; B96.89 Other specified bacterial agents as the cause of diseases classified elsewhere; R26.89 Other abnormalities of gait and mobility; R29.6 Repeated falls; N39.0 Urinary tract infection, site not specified
CPT/HCPCS: 36415; 70450; 71010; 71045; 80053; 81001; 83735; 85025; 87040; 87086; 87088; 87186; 94640; 97110; 97116; 97163; 97166; 97530; 99231; A4222; J0696; J1650; J1815; J7620

== ENCOUNTER 2018-06-15 08:33 | Inpatient (IN) ==
--- NOTE | 2018-06-15 09:18 | DR.SOBA ---
HPI Time Seen Time Seen by Provider: 06/15/18 09:06 Primary Care Physician Primary Care Physician: GALINA MCCONNELL Complaints Chief Complaint:: PT SON STATES SHE FELL THIS AM WHILE GETTING HER COFFEE AND SHE IS HAVING TROUBLE BREATHING, PT C/O HURTING TO HER SPINE AND NO EDEMA OR DEFORMITY NOTED , Self Treatment fo Chief Complaint: PT IS ALERT AND ORIENTED TIMES FOUR LUNGS CLEAR ,, NO LOC NOTED ,BR Source History Provided: Patient Mode of Arrival Mode of Arrival: Wheelchair Timing Onset of Chief Complaint: 06/15/18 PMH PMH Past Medical History: Yes Past Medical History: Arthritis, COPD and Diabetes Past Surgical History: Yes Surgical History: Angioplasty/Stents, Hysterectomy and Other Family History History of Family Medical Conditions: Yes Family Medical History: Diabetes Mellitus and Hypertension Social History Does patient currently use any type of tobacco product: No Have you used tobacco products in the last 12 months: No Type of Tobacco Use: None Does any household member use tobacco: No Alcohol Use: None Do you use any recreational Drugs:: No Lives With: Family Lives Where: Home infectious screening In the last 2 months have you had wt loss of >10#?: NO Have you had fever, night sweats or hemotysis?: No Have you traveled outside the country in the last 6 months?: No Isolation: Standard PE Vital Signs Vitals: Temperature 97.2 F Pulse Rate 58 Respiratory Rate 20 Blood Pressure [Right Arm] 153/79 Blood Pressure [Left Arm] 183/74 Blood Pressure 165/67 O2 Sat by Pulse Oximetry 93 ROR Labs Reviewed Result Diagrams: 06/15/18 09:27 06/15/18 09:27 Laboratory: WBC 8.0 X10^3/uL (3.6-10.0) 06/15/18 09:27 RBC 4.89 X10^6/uL (3.5-5.4) 06/15/18 09:27 Hgb 13.0 g/dL (12.0-16.0) 06/15/18 09:27 Hct 39.4 % (36.0-47.0) 06/15/18 09:27 MCV 80.5 fL (80.0-100.0) 06/15/18 09:27 MCH 26.5 pg (27.0-34.0) L 06/15/18 09:27 MCHC 33.0 g/dL (33.0-35.0) 06/15/18 09:27 RDW 14.9 % (11.6-16.5) 06/15/18 09:27 Plt Count 268 X10^3/uL (150.0-450.0) 06/15/18 09:27 MPV 8.1 fL (7.4-11.0) 06/15/18 09:27 Neut % (Auto) 77.8 % (42.0-75.0) H 06/15/18 09:27 Lymph % (Auto) 13.8 % (21.0-51.0) L 06/15/18 09:27 [place] % (Auto) 6.1 % (0.0-13.0) 06/15/18 09:27 Eos % (Auto) 1.6 % (0.9-2.9) 06/15/18 09:27 Baso % (Auto) 0.7 % (0.2-1.0) 06/15/18 09:27 Neut # (Auto) 6.2 x10^3/uL (2.2-4.8) H 06/15/18 09:27 Lymph # (Auto) 1.1 X10^3/uL (1.3-2.9) L 06/15/18 09:27 [place] # (Auto) 0.5 x10^3/uL (0.3-0.8) 06/15/18 09:27 Eos # (Auto) 0.1 x10^3/uL (0.0-0.2) 06/15/18 09:27 Baso # (Auto) 0.1 X10^3/uL (0.0-0.1) 06/15/18 09:27 Absolute Nucleated RBC 0.1 /100WBC 06/15/18 09:27 Sodium 141 mmol/L (136-145) 06/15/18 09:27 Corrected Sodium 144 mmol/L (136-145) 06/15/18 09:27 Potassium 4.2 mmol/L (3.5-5.1) 06/15/18 09:27 Chloride 102 mmol/L (98-107) 06/15/18 09:27 Carbon Dioxide 32.0 mmol/L (21-32) 06/15/18 09:27 BUN 17 mg/dL (7-18) 06/15/18 09:27 Creatinine 1.17 mg/dL (0.55-1.02) H 06/15/18 09:27 Est GFR (MDRD) Af Amer 56 (>60) L 06/15/18 09:27 Est GFR (MDRD) Non-Af 47 (>60) L 06/15/18 09:27 Glucose 235 mg/dL (65-99) H 06/15/18 09:27 Calcium 9.1 mg/dL (8.5-10.1) 06/15/18 09:27 Corrected Calcium 9.7 mg/dL (8.5-10.1) 06/15/18 09:27 Total Bilirubin 0.80 mg/dL (0.2-1.0) 06/15/18 09:27 AST 53 Units/L (15-37) H 06/15/18 09:27 ALT 43 Units/L (12-78) 06/15/18 09:27 Alkaline Phosphatase 357 Units/L (46-116) H 06/15/18 09:27 Creatine Kinase 68 Units/L (26-192) 06/15/18 09:27 CK-MB (CK-2) 1.7 ng/mL (0-4.0) 06/15/18 09:27 CK/CKMB % Calc 2.5 % (<4) 06/15/18 09:27 Troponin I < 0.02 ng/mL (0-1.5) 06/15/18 09:27 Total Protein 8.1 g/dL (6.4-8.2) 06/15/18 09:27 Albumin 3.3 g/dL (3.4-5.0) L 06/15/18 09:27 Globulin 4.8 g/dL (2.5-4.5) H 06/15/18 09:27 Albumin/Globulin Ratio 0.7 Ratio (1.1-2.1) L 06/15/18 09:27 Specimen Type Catherized urine 06/15/18 11:30 Urine Color Yellow (YELLOW) 06/15/18 11:30 Urine Appearance Clear (CLEAR) 06/15/18 11:30 Urine pH 7.0 (5.0 - 8.0) 06/15/18 11:30 Ur Specific [place] 1.010 (1.000-1.030) 06/15/18 11:30 Urine Protein 1+ (NEGATIVE) 06/15/18 11:30 Urine Glucose (UA) 2+ (NEGATIVE) 06/15/18 11:30 Urine Ketones Negative (NEGATIVE) 06/15/18 11:30 Urine Occult Blood Negative (NEGATIVE) 06/15/18 11:30 Urine Nitrite Negative (NEGATIVE) 06/15/18 11:30 Urine Bilirubin Negative (NEGATIVE) 06/15/18 11:30 Urine Urobilinogen Normal (NORMAL) 06/15/18 11:30 Ur Leukocyte Esterase Negative (NEGATIVE) 06/15/18 11:30 Urine RBC 0-2 /HPF (NONE SEEN) 06/15/18 11:30 Urine WBC 0-2 /HPF (NONE SEEN) 06/15/18 11:30 Ur Squamous Epith Cells Moderate /HPF (NEGATIVE) 06/15/18 11:30 Urine Bacteria Trace /HPF (NEGATIVE) 06/15/18 11:30 Ur Culture Indicated? No/not indicated 06/15/18 11:30
[2018-06-15 09:36] LABS: BASOPHILS # (AUTO) 0.1 X10^3/uL (0.0-0.1); BASOPHILS % (AUTO) 0.7 % (0.2-1.0); EOSINOPHILS # (AUTO) 0.1 x10^3/uL (0.0-0.2); EOSINOPHILS % (AUTO) 1.6 % (0.9-2.9); HEMATOCRIT 39.4 % (36.0-47.0); LYMPHOCYTES # (AUTO) 1.1 X10^3/uL (1.3-2.9); LYMPHOCYTES % (AUTO) 13.8 % (21.0-51.0); MEAN CORPUSCULAR HEMOGLOBIN 26.5 pg (27.0-34.0); MEAN CORPUSCULAR VOLUME 80.5 fL (80.0-100.0); MEAN PLATELET VOLUME 8.1 fL (7.4-11.0); MONOCYTES # (AUTO) 0.5 x10^3/uL (0.3-0.8); MONOCYTES % (AUTO) 6.1 % (0.0-13.0); NEUTROPHILS # (AUTO) 6.2 x10^3/uL (2.2-4.8); NEUTROPHILS % (AUTO) 77.8 % (42.0-75.0); PLATELET COUNT 268 X10^3/uL (150.0-450.0); RED BLOOD COUNT 4.89 X10^6/uL (3.5-5.4); RED CELL DISTRIBUTION WIDTH 14.9 % (11.6-16.5)
[2018-06-15 10:05] LABS: ALANINE AMINOTRANSFERASE 43 Units/L (12-78); ALBUMIN 3.3 g/dL (3.4-5.0); ALKALINE PHOSPHATASE 357 Units/L (46-116); ASPARTATE AMINO TRANSFERASE 53 Units/L (15-37); BLOOD UREA NITROGEN 17 mg/dL (7-18); CALCIUM 9.1 mg/dL (8.5-10.1); CHLORIDE 102 mmol/L (98-107); CKMB % 2.5 % (<4); COR CA(FOR HYPOALB) 9.7 mg/dL (8.5-10.1); COR NA(FOR HYPERGLY) 144 mmol/L (136-145); CREATINE KINASE 68 Units/L (26-192); CREATINE KINASE MB 1.7 ng/mL (0-4.0); CREATININE 1.17 mg/dL (0.55-1.02); SODIUM 141 mmol/L (136-145); TOTAL PROTEIN 8.1 g/dL (6.4-8.2); TROPONIN I < 0.02 ng/mL (0-1.5); eGFR NON BLACK RACES 47 (>60)
[2018-06-15] MEDS ORDERED: CATAPRES TAB 0.1 MG ONE (10:21)
[2018-06-15] MEDS ORDERED: CATAPRES TAB 0.1 MG PO ONE ×2 (10:23→16:40)
--- NOTE | 2018-06-15 10:32 | RAD ---
HISTORY: Pain status post fall. Study: Three views of the thoracic spine. Comparison: PA and lateral chest dated March 03, 2018. Findings: No acute cortical disruption or dislocation can be identified. No significant soft tissue swelling or injury can be seen. Stable appearance of a right chest multi lead cardiac pacemaker. The cardiac silhouette appears unchanged given technique. The visualized lungs are clear. Scoliotic curvature of the spine. Mild multilevel degenerative changes. IMPRESSION: No acute osseous abnormality. Reported By:
--- NOTE | 2018-06-15 10:46 | RAD ---
HISTORY: Mid back pain, shortness of breath after fall Study: Single view chest Comparison: 04/28/2018 Findings: There is a dual-chamber pacemaker in place. No infiltrate, effusion or pneumothorax identified. The cardiac and mediastinal contours are within normal limits. The soft tissues are unremarkable. IMPRESSION: 1. No acute cardiopulmonary abnormality. Reported By:
[2018-06-15 11:44] LABS: BILIRUBIN,URINE NEGATIVE (NEGATIVE); BLOOD/HEMOGLOBIN,URINE NEGATIVE (NEGATIVE); GLUCOSE, URINE 2+ (NEGATIVE); KETONES,URINE NEGATIVE (NEGATIVE); LEUKOCYTE ESTERASE ,URINE NEGATIVE (NEGATIVE); NITRITES,URINE NEGATIVE (NEGATIVE); PROTEIN,URINE 1+ (NEGATIVE); UROBILINOGEN,URINE NORMAL (NORMAL)
[2018-06-15 12:03] LABS: APPEARANCE,URINE CLEAR (CLEAR); COLOR,URINE YELLOW (YELLOW); RBC,URINE 0-2 /HPF (NONE SEEN); SQUAMOUS EPITHELIAL CELL,UR MODERATE /HPF (NEGATIVE)
[2018-06-15 12:04] LABS: BACTERIA,URINE TRACE /HPF (NEGATIVE)
[2018-06-15] MEDS: NS 1000 ML 1,000 ML IV SCH (15:10)
[2018-06-15 16:09] VITALS: BMI 18.1
[2018-06-15] MEDS ORDERED: APRESOLINE INJ 20 MG VIAL IVP ONE (16:45)
[2018-06-15] MEDS ORDERED: ATARAX TAB 25 MG PO PRN (17:00)
[2018-06-15 17:12] LABS: CREATINE KINASE 63 Units/L (26-192); CREATINE KINASE MB 1.9 ng/mL (0-4.0); TROPONIN I < 0.02 ng/mL (0-1.5)
[2018-06-15] MEDS: WELCHOL PO SCH (17:28)
[2018-06-15] MEDS: SINEquan PO SCH (21:06)
[2018-06-15] MEDS: CELEXA PO SCH (21:06)
[2018-06-15] MEDS: ULTRAM PO PRN (21:06)
[2018-06-15] MEDS: LIPITOR TAB 40 MG PO SCH (21:06)
[2018-06-15] MEDS: SNACK - Diabetic Appropriate PO SCH (21:07)
[2018-06-15] MEDS: HumuLIN R SUBCUT PRN (21:11)
[2018-06-15 22:34] LABS: CKMB % 2.9 % (<4); CREATINE KINASE 56 Units/L (26-192); CREATINE KINASE MB 1.6 ng/mL (0-4.0); TROPONIN I < 0.02 ng/mL (0-1.5)
[2018-06-16] MEDS: NS 1000 ML 1,000 ML IV SCH ×3 (03:44→17:33)
[2018-06-16 05:22] LABS: BASOPHILS # (AUTO) 0.1 X10^3/uL (0.0-0.1); BASOPHILS % (AUTO) 0.7 % (0.2-1.0); EOSINOPHILS # (AUTO) 0.1 x10^3/uL (0.0-0.2); EOSINOPHILS % (AUTO) 1.7 % (0.9-2.9); HEMATOCRIT 35.6 % (36.0-47.0); HEMOGLOBIN 11.7 g/dL (12.0-16.0); LYMPHOCYTES # (AUTO) 1.7 X10^3/uL (1.3-2.9); LYMPHOCYTES % (AUTO) 21.6 % (21.0-51.0); MEAN CORPUSCULAR HEMOGLOBIN 26.4 pg (27.0-34.0); MEAN CORPUSCULAR HGB CONC 32.9 g/dL (33.0-35.0); MEAN CORPUSCULAR VOLUME 80.2 fL (80.0-100.0); MEAN PLATELET VOLUME 8.4 fL (7.4-11.0); MONOCYTES # (AUTO) 0.7 x10^3/uL (0.3-0.8); MONOCYTES % (AUTO) 9.4 % (0.0-13.0); NEUTROPHILS # (AUTO) 5.3 x10^3/uL (2.2-4.8); NEUTROPHILS % (AUTO) 66.6 % (42.0-75.0); PLATELET COUNT 238 X10^3/uL (150.0-450.0); RED BLOOD COUNT 4.44 X10^6/uL (3.5-5.4); RED CELL DISTRIBUTION WIDTH 14.8 % (11.6-16.5)
[2018-06-16 05:25] LABS: ALANINE AMINOTRANSFERASE 31 Units/L (12-78); ALBUMIN 2.8 g/dL (3.4-5.0); ALKALINE PHOSPHATASE 295 Units/L (46-116); ASPARTATE AMINO TRANSFERASE 33 Units/L (15-37); BLOOD UREA NITROGEN 15 mg/dL (7-18); CALCIUM 8.5 mg/dL (8.5-10.1); CARBON DIOXIDE 30.8 mmol/L (21-32); CHLORIDE 102 mmol/L (98-107); COR CA(FOR HYPOALB) 9.5 mg/dL (8.5-10.1); CREATININE 1.01 mg/dL (0.55-1.02); MAGNESIUM 1.8 mg/dL (1.7-2.9); SODIUM 139 mmol/L (136-145); eGFR NON BLACK RACES 55 (>60)
[2018-06-16] MEDS ORDERED: POTASSIUM CHL 60 MEQ/NS 0.45% 500 ML IV PRN (05:54)
[2018-06-16] MEDS ORDERED: MICRO K EXTEN CAP 10 MEQ PO PRN (05:54)
[2018-06-16] MEDS ORDERED: K-RIDER 10 MEQ/NS 100 ML 10 MEQ/100 ML BAG IV PRN (05:54)
[2018-06-16] MEDS ORDERED: POTASSIUM CHLORIDE LIQ 20 MEQ UDC PO PRN (05:54)
[2018-06-16] MEDS ORDERED: KLOR-CON PO PRN (05:54)
[2018-06-16] MEDS ORDERED: POTASSIUM CHL 40 MEQ/NS 0.45% 500 ML IV PRN (05:54)
[2018-06-16] MEDS: WELCHOL PO SCH ×2 (06:01→17:33)
[2018-06-16] MEDS: GLUCOTROL PO SCH (06:01)
[2018-06-16] MEDS: SYNTHROID 50 mcg TAB PO SCH ×2 (06:01→17:32)
[2018-06-16] MEDS: ULTRAM PO PRN (06:12)
[2018-06-16] MEDS: K-DUR TAB 20 MEQ PO PRN (06:39)
[2018-06-16] MEDS: MAGNESIUM SULFATE 1 GRAM/100 mL PREMIX 1 GM/100 ML BAG IV PRN ×2 (06:40→08:45)
[2018-06-16] MEDS: JANUVIA PO SCH (08:46)
[2018-06-16] MEDS: PLAVIX PO SCH (08:46)
[2018-06-16] MEDS: ZyrTEC TAB 10 MG PO SCH (08:47)
[2018-06-16] MEDS: NAMENDA TAB 10 MG PO SCH (08:47)
[2018-06-16] MEDS: NexIUM PO SCH (08:49)
[2018-06-16] MEDS: PROzac PO SCH (08:51)
[2018-06-16] MEDS ORDERED: MEMANTINE 10 MG PO SCH (09:15)
[2018-06-16] MEDS ORDERED: SITAGLIPTIN 50 MG PO SCH (09:15)
[2018-06-16] MEDS ORDERED: PROzac PO SCH (10:00)
[2018-06-16] MEDS ORDERED: SYNTHROID 50 mcg TAB PO SCH (10:00)
[2018-06-16] MEDS ORDERED: PLAVIX PO SCH (10:00)
[2018-06-16] MEDS ORDERED: PHARMACY CONSULT - DOSE _____ XX SCH (10:00)
[2018-06-16] MEDS ORDERED: GLUCOTROL XL PO SCH (10:00)
[2018-06-16] MEDS ORDERED: WELCHOL PO SCH (10:00)
[2018-06-16] MEDS ORDERED: NexIUM PO SCH (10:00)
[2018-06-16] MEDS: HumuLIN R SUBCUT PRN ×2 (12:37→20:43)
[2018-06-16] MEDS: LOVENOX INJ 40 MG SYR SC SCH (12:37)
--- NOTE | 2018-06-16 13:33 | DR.H&P ---
H&P - History & Physical for Day of: H&P Date: 06/15/18 - Chief Complaint Chief Complaint: "passed out" per family - History of Present Illness History of Present Illness: 87 WF ER ADMISSION AFTER PRESENTING WITH CO PT SON PT PASSED OUT AND FELL ON HER BACK. PT ALERT ON ARRIVAL TO ER CO PAIN ALL OVER. PT HAS PMH OF DM, CAD, CHF, OA. PT WAS RECENTLY TREATED FOR A UTI, COMPLETED MACROBID PO. PT'S SON STATES HER EYES ROLLED BACK AND SHE SLID IN THE FLOOR. - Past Medical History Past Medical History: Arthritis, COPD, Diabetes, GERD, Hypertension - Past Surgical History Surgical History: Angioplasty/Stents, Hysterectomy, Other - Family History Family Medical History: Diabetes Mellitus, Hypertension - Social History Does patient currently use any type of tobacco product: No Have you used tobacco products in the last 12 months: No Type of Tobacco Use: None Does any household member use tobacco: No Alcohol Use: None Drug Use: Prescription Drugs - Medications Home Medications: acetaminophen Allergy (Verified 06/15/18 09:00) pyrilamine Allergy (Verified 06/15/18 09:00) CONTINUE taking the following medications atorvastatin 80 mg PO HS 06/15/18 [History] cetirizine 10 mg PO DAILY 06/15/18 [History] memantine 10 mg PO DAILY 06/15/18 [History] - Review of Systems Constitutional: Weakness Eyes: No Symptoms Reported ENT: No Symptoms Reported Respiratory: Shortness of Breath Cardiovascular: Light Headedness Gastrointestinal: No Symptoms Reported Genitourinary: No Symptoms Reported Musculoskeletal: Back Pain Skin: No Symptoms Reported Neurological: Weakness, Confusion (BRIEF CONFUSION) - Physical Exam Vital Signs: Temperature 97.6 F Pulse Rate [Left Brachial] 58 Pulse Rate 58 Respiratory Rate 20 Blood Pressure [Right Arm] 154/68 Blood Pressure [Left Arm] 135/71 Blood Pressure 173/73 O2 Sat by Pulse Oximetry 99 Oriented: Normal Eyes: Normal Ear: Normal Nose: Normal Throat: Normal Respiratory: RLL Diminished, LLL Diminished Cardiovascular: Normal, Other (HAS DEFIBRILLATOR) : Normal Auscultation: Bowel Sounds: Normal Palpation: Normal Tenderness: Normal Skin: Decreased Turgur Musculoskeletal: Right, Left, Leg, Back:Thoracic, Back:Lumbar, Motor Deficit Psychiatric: Normal Affect: Anxious Speech Pattern: Clear, Appropriate - Assessment/Plan (1) Syncope Status: Acute Plan: ADMITTED FROM ER FOR OBSERVATION. PAIN CONTROL, ADMISSION LABS. URINE CULTURE, BP AND BS CONTROL. EKG ON ADMISSION. PT, XRAYS IN ER (2) UTI (urinary tract infection) Status: Acute (3) Fall Status: Acute (4) Diabetes Status: Acute (5) CAD (coronary artery disease) Status: Acute (6) Altered mental state Status: Acute (7) Generalized weakness Status: Acute - Allergies Allergies/Adverse Reactions: Allergies Allergy/AdvReac Type Severity Reaction Status Date / Time acetaminophen Allergy Verified 06/15/18 09:00 pyrilamine Allergy Verified 06/15/18 09:00
--- NOTE | 2018-06-16 15:06 | CT ---
HISTORY: Dizziness. Study: CT brain without contrast Comparison: CT head dated April 28, 2018. Technique: Multiple axial images of the brain were obtained from the skull base to the vertex without administration of IV contrast. Dose reduction techniques including Automated Exposure Control (AEC) and adjustment of mA and kV were utilized. Findings: Age-related cortical atrophy and chronic small vessel ischemic changes. No acute intraparenchymal hemorrhage or mass can be identified. No extra-axial fluid collections are seen. No alteration in the attenuation of the brain parenchyma can be identified to suggest acute or subacute ischemic change. The ventricular system is symmetric and nondilated. The extracranial structures are grossly unremarkable. IMPRESSION: No acute intracranial pathology. If clinically concerned for acute ischemia/infarction, MRI of the brain is more sensitive. Reported By:
--- NOTE | 2018-06-16 17:55 | PCM.PROG ---
Progress Note - Progress Note for Day of Date of Exam: 06/16/18 - Subjective Subjective: 87 WF ER ADMISSION ON 06/14 AFTER SYNCOPE. PT HAS HX OF DM AND CAD. FAMILY REPORTS BRIEF LOC, THEN AXO WITH CO BACK PAIN FOLLOWING FALL. PT HAD CT HEAD THIS AM RO ACUTE CVA WITH CHRONIC FINDINGS. PT HAD UC COLLECTED WITH RESULTS PENDING. PT HAS HAD MULTIPLE FALLS IN THE PAST FEW MONTHS. CO LEGS ARE WEEK. PT'S SON SAID SHE HAD BEEN DOING WELL, THIS FALL WAS FROM PASSING OUT. PT HAS BEEN USING WALKER AND WHEELCHAIR AT HOME. DISCUSSED OPTIONS FOR NH PLACEMENT VS SITTER WITH SON. WILL CONSULT CASE MANAGEMENT. CONTINUE IV ROCEPHIN FOR UTI REPEAT AM LABS. - Past Medical Family Social History Past Med/Fam/Surg Hx: No changes since H&P Allergies: Allergies acetaminophen Allergy (Verified 06/15/18 09:00) pyrilamine Allergy (Verified 06/15/18 09:00) - Review of Systems ROS: No change since H&P - Vital Signs and I&O's Vital Signs: Temperature 98.0 F Pulse Rate [Left Brachial] 67 Pulse Rate 58 Respiratory Rate 20 Blood Pressure [Right Arm] 189/84 Blood Pressure [Left Arm] 133/61 Blood Pressure 173/73 O2 Sat by Pulse Oximetry 99 Intake and Output: Intake & Output 06/14/18 06/15/18 06/16/18 06/17/18 11:59 11:59 11:59 11:59 Intake Total 1270 / 1270 1200 / 1200 Balance 1270 / 1270 1200 / 1200 - Physical Exam Oriented: Normal Eyes: Normal Ear: Normal Nose: Normal Throat: Normal Respiratory: Diminished Cardiovascular: Normal, Other (HAS DEFIBRILLATOR) : Normal Auscultation: Bowel Sounds: Normal Tenderness: Normal Skin: Decreased Turgur Musculoskeletal: Right, Left, Leg, Back:Thoracic, Back:Lumbar, Motor Deficit Psychiatric: Normal Affect: Anxious Speech Pattern: Clear, Appropriate - Laboratory and Diagnostics Result Diagrams: 06/16/18 04:27 06/16/18 04:27 Labs: Laboratory WBC 8.0 X10^3/uL (3.6-10.0) 06/16/18 04:27 RBC 4.44 X10^6/uL (3.5-5.4) 06/16/18 04:27 Hgb 11.7 g/dL (12.0-16.0) L 06/16/18 04:27 Hct 35.6 % (36.0-47.0) L 06/16/18 04:27 MCV 80.2 fL (80.0-100.0) 06/16/18 04:27 MCH 26.4 pg (27.0-34.0) L 06/16/18 04:27 MCHC 32.9 g/dL (33.0-35.0) L 06/16/18 04:27 RDW 14.8 % (11.6-16.5) 06/16/18 04:27 Plt Count 238 X10^3/uL (150.0-450.0) 06/16/18 04:27 MPV 8.4 fL (7.4-11.0) 06/16/18 04:27 Neut % (Auto) 66.6 % (42.0-75.0) 06/16/18 04:27 Lymph % (Auto) 21.6 % (21.0-51.0) 06/16/18 04:27 [place] % (Auto) 9.4 % (0.0-13.0) 06/16/18 04:27 Eos % (Auto) 1.7 % (0.9-2.9) 06/16/18 04:27 Baso % (Auto) 0.7 % (0.2-1.0) 06/16/18 04:27 Neut # (Auto) 5.3 x10^3/uL (2.2-4.8) H 06/16/18 04:27 Lymph # (Auto) 1.7 X10^3/uL (1.3-2.9) 06/16/18 04:27 [place] # (Auto) 0.7 x10^3/uL (0.3-0.8) 06/16/18 04:27 Eos # (Auto) 0.1 x10^3/uL (0.0-0.2) 06/16/18 04:27 Baso # (Auto) 0.1 X10^3/uL (0.0-0.1) 06/16/18 04:27 Absolute Nucleated RBC 0.0 /100WBC 06/16/18 04:27 Sodium 139 mmol/L (136-145) 06/16/18 04:27 Corrected Sodium TNP 06/16/18 04:27 Potassium 3.6 mmol/L (3.5-5.1) 06/16/18 04:27 Chloride 102 mmol/L (98-107) 06/16/18 04:27 Carbon Dioxide 30.8 mmol/L (21-32) 06/16/18 04:27 BUN 15 mg/dL (7-18) 06/16/18 04:27 Creatinine 1.01 mg/dL (0.55-1.02) 06/16/18 04:27 Est GFR (MDRD) Af Amer > 60 (>60) 06/16/18 04:27 Est GFR (MDRD) Non-Af 55 (>60) L 06/16/18 04:27 Glucose 110 mg/dL (65-99) H 06/16/18 04:27 POC Glucose (mg/dL) 114 mg/dL (65-99) H 06/16/18 05:14 Calcium 8.5 mg/dL (8.5-10.1) 06/16/18 04:27 Corrected Calcium 9.5 mg/dL (8.5-10.1) 06/16/18 04:27 Magnesium 1.8 mg/dL (1.7-2.9) 06/16/18 04:27 Total Bilirubin 1.20 mg/dL (0.2-1.0) H 06/16/18 04:27 AST 33 Units/L (15-37) 06/16/18 04:27 ALT 31 Units/L (12-78) 06/16/18 04:27 Alkaline Phosphatase 295 Units/L (46-116) H 06/16/18 04:27 Creatine Kinase 56 Units/L (26-192) 06/15/18 22:02 CK-MB (CK-2) 1.6 ng/mL (0-4.0) 06/15/18 22:02 CK/CKMB % Calc 2.9 % (<4) 06/15/18 22:02 Troponin I < 0.02 ng/mL (0-1.5) 06/15/18 22:02 Total Protein 7.0 g/dL (6.4-8.2) 06/16/18 04:27 Albumin 2.8 g/dL (3.4-5.0) L 06/16/18 04:27 Globulin 4.2 g/dL (2.5-4.5) 06/16/18 04:27 Albumin/Globulin Ratio 0.7 Ratio (1.1-2.1) L 06/16/18 04:27 Specimen Type Catherized urine 06/15/18 11:30 Urine Color Yellow (YELLOW) 06/15/18 11:30 Urine Appearance Clear (CLEAR) 06/15/18 11:30 Urine pH 7.0 (5.0 - 8.0) 06/15/18 11:30 Ur Specific [place] 1.010 (1.000-1.030) 06/15/18 11:30 Urine Protein 1+ (NEGATIVE) 06/15/18 11:30 Urine Glucose (UA) 2+ (NEGATIVE) 06/15/18 11:30 Urine Ketones Negative (NEGATIVE) 06/15/18 11:30 Urine Occult Blood Negative (NEGATIVE) 06/15/18 11:30 Urine Nitrite Negative (NEGATIVE) 06/15/18 11:30 Urine Bilirubin Negative (NEGATIVE) 06/15/18 11:30 Urine Urobilinogen Normal (NORMAL) 06/15/18 11:30 Ur Leukocyte Esterase Negative (NEGATIVE) 06/15/18 11:30 Urine RBC 0-2 /HPF (NONE SEEN) 06/15/18 11:30 Urine WBC 0-2 /HPF (NONE SEEN) 06/15/18 11:30 Ur Squamous Epith Cells Moderate /HPF (NEGATIVE) 06/15/18 11:30 Urine Bacteria Trace /HPF (NEGATIVE) 06/15/18 11:30 Ur Culture Indicated? No/not indicated 06/15/18 11:30 - Plan (1) Syncope Status: Acute Plan: CARDIAC MONITORING. PAIN CONTROL, AM LABS. URINE CULTURE, BP AND BS CONTROL. EKG ON ADMISSION. PT, XRAYS IN ER, CASE MANAGEMENT CONSULT (2) UTI (urinary tract infection) Status: Acute (3) Fall Status: Acute (4) Diabetes Status: Acute (5) CAD (coronary artery disease) Status: Acute (6) Altered mental state Status: Acute (7) Generalized weakness Status: Acute
[2018-06-16] MEDS: SNACK - Diabetic Appropriate PO SCH (20:30)
[2018-06-16] MEDS: CELEXA PO SCH (20:37)
[2018-06-16] MEDS: SINEquan PO SCH (20:37)
[2018-06-16] MEDS: LIPITOR TAB 40 MG PO SCH (20:38)
[2018-06-16] MEDS ORDERED: LIPITOR TAB 40 MG PO SCH (21:00)
[2018-06-16] MEDS ORDERED: CELEXA PO SCH (21:00)
[2018-06-16] MEDS ORDERED: SINEquan PO SCH (21:00)
[2018-06-17 05:18] LABS: BASOPHILS # (AUTO) 0.1 X10^3/uL (0.0-0.1); BASOPHILS % (AUTO) 0.8 % (0.2-1.0); EOSINOPHILS # (AUTO) 0.1 x10^3/uL (0.0-0.2); EOSINOPHILS % (AUTO) 2.1 % (0.9-2.9); HEMATOCRIT 37.5 % (36.0-47.0); HEMOGLOBIN 12.2 g/dL (12.0-16.0); LYMPHOCYTES # (AUTO) 1.3 X10^3/uL (1.3-2.9); LYMPHOCYTES % (AUTO) 17.8 % (21.0-51.0); MEAN CORPUSCULAR HEMOGLOBIN 26.7 pg (27.0-34.0); MEAN CORPUSCULAR HGB CONC 32.6 g/dL (33.0-35.0); MEAN PLATELET VOLUME 9.1 fL (7.4-11.0); MONOCYTES # (AUTO) 0.7 x10^3/uL (0.3-0.8); MONOCYTES % (AUTO) 9.8 % (0.0-13.0); NEUTROPHILS # (AUTO) 4.9 x10^3/uL (2.2-4.8); NEUTROPHILS % (AUTO) 69.5 % (42.0-75.0); PLATELET COUNT 228 X10^3/uL (150.0-450.0); RED BLOOD COUNT 4.58 X10^6/uL (3.5-5.4); RED CELL DISTRIBUTION WIDTH 14.7 % (11.6-16.5)
[2018-06-17 05:36] LABS: ALANINE AMINOTRANSFERASE 30 Units/L (12-78); ALBUMIN 2.9 g/dL (3.4-5.0); ALKALINE PHOSPHATASE 295 Units/L (46-116); ASPARTATE AMINO TRANSFERASE 30 Units/L (15-37); BLOOD UREA NITROGEN 12 mg/dL (7-18); CALCIUM 8.4 mg/dL (8.5-10.1); CARBON DIOXIDE 31.9 mmol/L (21-32); CHLORIDE 102 mmol/L (98-107); COR CA(FOR HYPOALB) 9.3 mg/dL (8.5-10.1); COR NA(FOR HYPERGLY) 143 mmol/L (136-145); CREATININE 1.02 mg/dL (0.55-1.02); MAGNESIUM 1.9 mg/dL (1.7-2.9); SODIUM 140 mmol/L (136-145); TOTAL PROTEIN 7.1 g/dL (6.4-8.2); eGFR NON BLACK RACES 54 (>60)
[2018-06-17] MEDS: WELCHOL PO SCH ×2 (06:03→16:59)
[2018-06-17] MEDS: GLUCOTROL PO SCH (06:03)
[2018-06-17] MEDS: NS 1000 ML 1,000 ML IV SCH ×2 (06:22→17:06)
[2018-06-17] MEDS: NexIUM PO SCH (08:43)
[2018-06-17] MEDS: JANUVIA PO SCH (08:43)
[2018-06-17] MEDS: ZyrTEC TAB 10 MG PO SCH (08:43)
[2018-06-17] MEDS: NAMENDA TAB 10 MG PO SCH (08:44)
[2018-06-17] MEDS: PROzac PO SCH (08:44)
[2018-06-17] MEDS: PLAVIX PO SCH (08:45)
[2018-06-17] MEDS: LOVENOX INJ 40 MG SYR SC SCH (08:45)
[2018-06-17] MEDS: LOVAZA PO SCH (08:46)
[2018-06-17] MEDS ORDERED: ZyrTEC TAB 10 MG PO SCH (09:00)
[2018-06-17] MEDS: TORADOL 15 MG VIAL IVP SCH ×2 (10:47→17:01)
[2018-06-17] MEDS ORDERED: APRESOLINE INJ 20 MG VIAL IVP ONE (11:14)
[2018-06-17] MEDS ORDERED: DUONEB 0.5 MG/3 MG NEB PRN (11:28)
[2018-06-17] MEDS: ROCEPHIN VIAL 1 GRAM IVP SCH (13:55)
--- NOTE | 2018-06-17 15:18 | PCM.PROG ---
Progress Note - Progress Note for Day of Date of Exam: 06/17/18 - Subjective Subjective: 87 WF ER ADMISSION ON 06/14 AFTER SYNCOPE. PT HAS HX OF DM AND CAD. FAMILY REPORTS BRIEF LOC, THEN AXO WITH CO BACK PAIN FOLLOWING FALL. 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 HTN ELEVATED ON ADMISSION, PT NOT TAKING ANY ANTIHYPERTENSIVES AT HOME, 192/87 THIS AM. HYDRALAZINE IV X1 DOSE ORDERED AND PO NORVASC DAILY. PT HAD UC COLLECTED WITH RESULTS PENDING. ON IV ROCEPHIN. PT HAS HAD MULTIPLE FALLS IN THE PAST FEW MONTHS. CO LEGS ARE WEEK. PT'S SON SAID SHE HAD BEEN DOING WELL, THIS FALL WAS FROM PASSING OUT. PT HAS BEEN USING WALKER AND WHEELCHAIR AT HOME. DISCUSSED OPTIONS FOR NH PLACEMENT VS SITTER WITH SON. WILL CONSULT CASE MANAGEMENT. PT CO INTRACTABLE UPPER BACK PAIN AND LEFT SHOULDER PAIN. NURSING STAFF AND SON REPORTS PT HAVING CONFUSION THIS AM, DELUSIONAL. PT HAS HX OF MILD VASCULAR DEMENTIA, NO SIGNIFICANT HISTORY OF BEHAVIOR DISTURBANCE. - Past Medical Family Social History Past Med/Fam/Surg Hx: No changes since H&P Allergies: Allergies acetaminophen Allergy (Verified 06/15/18 09:00) pyrilamine Allergy (Verified 06/15/18 09:00) - Review of Systems ROS: No change since H&P - Vital Signs and I&O's Vital Signs: Temperature 97.1 F Pulse Rate [Left Brachial] 80 Pulse Rate 58 Respiratory Rate 20 Blood Pressure [Right Arm] 189/84 Blood Pressure [Left Arm] 130/59 Blood Pressure 173/73 O2 Sat by Pulse Oximetry 94 Intake and Output: Intake & Output 06/15/18 06/16/18 06/17/18 06/18/18 11:59 11:59 11:59 11:59 Intake Total 1270 / 1270 2910 / 2910 400 / 400 Balance 1270 / 1270 2910 / 2910 400 / 400 - Physical Exam Oriented: Normal Eyes: Normal Ear: Normal Nose: Normal Throat: Normal Respiratory: Diminished Cardiovascular: Normal, Other (HAS DEFIBRILLATOR) : Normal Auscultation: Bowel Sounds: Normal Tenderness: Normal Skin: Decreased Turgur Musculoskeletal: Right, Left, Shoulder, Leg, Back:Thoracic, Back:Lumbar, Tender, Motor Deficit, Crepitance Psychiatric: Normal Affect: Anxious Speech Pattern: Clear, Appropriate - Laboratory and Diagnostics Result Diagrams: 06/17/18 04:06 06/17/18 04:06 Labs: 06/16/18 00:10 Urine,Clean Catch Urine Culture - Preliminary Laboratory WBC 7.0 X10^3/uL (3.6-10.0) 06/17/18 04:06 RBC 4.58 X10^6/uL (3.5-5.4) 06/17/18 04:06 Hgb 12.2 g/dL (12.0-16.0) 06/17/18 04:06 Hct 37.5 % (36.0-47.0) 06/17/18 04:06 MCV 82.0 fL (80.0-100.0) 06/17/18 04:06 MCH 26.7 pg (27.0-34.0) L 06/17/18 04:06 MCHC 32.6 g/dL (33.0-35.0) L 06/17/18 04:06 RDW 14.7 % (11.6-16.5) 06/17/18 04:06 Plt Count 228 X10^3/uL (150.0-450.0) 06/17/18 04:06 MPV 9.1 fL (7.4-11.0) 06/17/18 04:06 Neut % (Auto) 69.5 % (42.0-75.0) 06/17/18 04:06 Lymph % (Auto) 17.8 % (21.0-51.0) L 06/17/18 04:06 [place] % (Auto) 9.8 % (0.0-13.0) 06/17/18 04:06 Eos % (Auto) 2.1 % (0.9-2.9) 06/17/18 04:06 Baso % (Auto) 0.8 % (0.2-1.0) 06/17/18 04:06 Neut # (Auto) 4.9 x10^3/uL (2.2-4.8) H 06/17/18 04:06 Lymph # (Auto) 1.3 X10^3/uL (1.3-2.9) 06/17/18 04:06 [place] # (Auto) 0.7 x10^3/uL (0.3-0.8) 06/17/18 04:06 Eos # (Auto) 0.1 x10^3/uL (0.0-0.2) 06/17/18 04:06 Baso # (Auto) 0.1 X10^3/uL (0.0-0.1) 06/17/18 04:06 Absolute Nucleated RBC 0.0 /100WBC 06/17/18 04:06 Sodium 140 mmol/L (136-145) 06/17/18 04:06 Corrected Sodium 143 mmol/L (136-145) 06/17/18 04:06 Potassium 3.5 mmol/L (3.5-5.1) 06/17/18 04:06 Chloride 102 mmol/L (98-107) 06/17/18 04:06 Carbon Dioxide 31.9 mmol/L (21-32) 06/17/18 04:06 BUN 12 mg/dL (7-18) 06/17/18 04:06 Creatinine 1.02 mg/dL (0.55-1.02) 06/17/18 04:06 Est GFR (MDRD) Af Amer > 60 (>60) 06/17/18 04:06 Est GFR (MDRD) Non-Af 54 (>60) L 06/17/18 04:06 Glucose 220 mg/dL (65-99) H 06/17/18 04:06 POC Glucose (mg/dL) 114 mg/dL (65-99) H 06/16/18 05:14 Calcium 8.4 mg/dL (8.5-10.1) L 06/17/18 04:06 Corrected Calcium 9.3 mg/dL (8.5-10.1) 06/17/18 04:06 Magnesium 1.9 mg/dL (1.7-2.9) 06/17/18 04:06 Total Bilirubin 1.00 mg/dL (0.2-1.0) 06/17/18 04:06 AST 30 Units/L (15-37) 06/17/18 04:06 ALT 30 Units/L (12-78) 06/17/18 04:06 Alkaline Phosphatase 295 Units/L (46-116) H 06/17/18 04:06 Creatine Kinase 56 Units/L (26-192) 06/15/18 22:02 CK-MB (CK-2) 1.6 ng/mL (0-4.0) 06/15/18 22:02 CK/CKMB % Calc 2.9 % (<4) 06/15/18 22:02 Troponin I < 0.02 ng/mL (0-1.5) 06/15/18 22:02 Total Protein 7.1 g/dL (6.4-8.2) 06/17/18 04:06 Albumin 2.9 g/dL (3.4-5.0) L 06/17/18 04:06 Globulin 4.2 g/dL (2.5-4.5) 06/17/18 04:06 Albumin/Globulin Ratio 0.7 Ratio (1.1-2.1) L 06/17/18 04:06 Specimen Type Catherized urine 06/15/18 11:30 Urine Color Yellow (YELLOW) 06/15/18 11:30 Urine Appearance Clear (CLEAR) 06/15/18 11:30 Urine pH 7.0 (5.0 - 8.0) 06/15/18 11:30 Ur Specific [place] 1.010 (1.000-1.030) 06/15/18 11:30 Urine Protein 1+ (NEGATIVE) 06/15/18 11:30 Urine Glucose (UA) 2+ (NEGATIVE) 06/15/18 11:30 Urine Ketones Negative (NEGATIVE) 06/15/18 11:30 Urine Occult Blood Negative (NEGATIVE) 06/15/18 11:30 Urine Nitrite Negative (NEGATIVE) 06/15/18 11:30 Urine Bilirubin Negative (NEGATIVE) 06/15/18 11:30 Urine Urobilinogen Normal (NORMAL) 06/15/18 11:30 Ur Leukocyte Esterase Negative (NEGATIVE) 06/15/18 11:30 Urine RBC 0-2 /HPF (NONE SEEN) 06/15/18 11:30 Urine WBC 0-2 /HPF (NONE SEEN) 06/15/18 11:30 Ur Squamous Epith Cells Moderate /HPF (NEGATIVE) 06/15/18 11:30 Urine Bacteria Trace /HPF (NEGATIVE) 06/15/18 11:30 Ur Culture Indicated? No/not indicated 06/15/18 11:30 - Plan (1) Syncope Status: Acute Plan: CARDIAC MONITORING. PAIN CONTROL, AM LABS. URINE CULTURE, BP AND BS CONTROL. EKG ON ADMISSION. PT, XRAYS IN ER, CASE MANAGEMENT CONSULT (2) UTI (urinary tract infection) Status: Acute (3) Fall Status: Acute (4) Diabetes Status: Acute (5) CAD (coronary artery disease) Status: Acute (6) Altered mental state Status: Acute (7) Generalized weakness Status: Acute
--- NOTE | 2018-06-17 15:52 | CT ---
THORACIC SPINE CT WITHOUT IV CONTRAST CLINICAL INDICATION: Neck pain and left shoulder pain TECHNIQUE: Multiple-row detector helical CT examination of the thoracic spine without IV contrast. Axial, sagittal, and coronal reconstructed images.Dose reduction techniques including Automated Exposure Control (AEC) and adjustment of mA and kV were utlized. COMPARISON: Chest CT 02/23/2018 FINDINGS: There is a likely subacute fracture of T5 with approximately 25% height loss. Minimal retropulsion of fracture fragments. This was not visible on any recent examination. Normal alignment is maintained without scoliosis or listhesis. No aggressive osseous lesions are identified. Diffuse multilevel degenerative disc disease. Cardiomegaly with severe coronary calcification. Multiple bilateral pulmonary nodules which were better described and visualized on recent chest CT. IMPRESSION: 1. Subacute fracture of T5 with mild height loss as above. Correlate with symptoms. No evidence of significant retropulsion or canal narrowing. Reported By:
[2018-06-17] MEDS: SYNTHROID 50 mcg TAB PO SCH (16:59)
[2018-06-17] MEDS: HumuLIN R SUBCUT PRN (17:00)
[2018-06-17] MEDS: COLACE CAP 100 MG PO PRN (20:08)
[2018-06-17] MEDS: LIPITOR TAB 40 MG PO SCH (20:10)
[2018-06-17] MEDS: K-DUR TAB 20 MEQ PO PRN (20:10)
[2018-06-17] MEDS: SINEquan PO SCH (20:10)
[2018-06-17] MEDS: SNACK - Diabetic Appropriate PO SCH (20:17)
[2018-06-18] MEDS: TORADOL 15 MG VIAL IVP SCH ×3 (01:07→16:57)
[2018-06-18 05:10] LABS: BASOPHILS % (AUTO) 0.4 % (0.2-1.0); EOSINOPHILS # (AUTO) 0.1 x10^3/uL (0.0-0.2); EOSINOPHILS % (AUTO) 1.8 % (0.9-2.9); HEMOGLOBIN 11.7 g/dL (12.0-16.0); LYMPHOCYTES # (AUTO) 1.2 X10^3/uL (1.3-2.9); LYMPHOCYTES % (AUTO) 14.2 % (21.0-51.0); MEAN CORPUSCULAR HEMOGLOBIN 26.9 pg (27.0-34.0); MEAN CORPUSCULAR HGB CONC 33.4 g/dL (33.0-35.0); MEAN CORPUSCULAR VOLUME 80.7 fL (80.0-100.0); MEAN PLATELET VOLUME 8.8 fL (7.4-11.0); MONOCYTES # (AUTO) 0.7 x10^3/uL (0.3-0.8); MONOCYTES % (AUTO) 8.4 % (0.0-13.0); NEUTROPHILS # (AUTO) 6.1 x10^3/uL (2.2-4.8); NEUTROPHILS % (AUTO) 75.2 % (42.0-75.0); PLATELET COUNT 202 X10^3/uL (150.0-450.0); RED BLOOD COUNT 4.33 X10^6/uL (3.5-5.4); RED CELL DISTRIBUTION WIDTH 14.8 % (11.6-16.5); WHITE BLOOD COUNT 8.1 X10^3/uL (3.6-10.0)
[2018-06-18 05:21] LABS: ALANINE AMINOTRANSFERASE 26 Units/L (12-78); ALBUMIN 2.6 g/dL (3.4-5.0); ALKALINE PHOSPHATASE 272 Units/L (46-116); ASPARTATE AMINO TRANSFERASE 29 Units/L (15-37); BLOOD UREA NITROGEN 13 mg/dL (7-18); CALCIUM 8.3 mg/dL (8.5-10.1); CARBON DIOXIDE 27.1 mmol/L (21-32); CHLORIDE 103 mmol/L (98-107); COR CA(FOR HYPOALB) 9.4 mg/dL (8.5-10.1); COR NA(FOR HYPERGLY) 140 mmol/L (136-145); SODIUM 137 mmol/L (136-145); TOTAL PROTEIN 6.5 g/dL (6.4-8.2); eGFR NON BLACK RACES 50 (>60)
[2018-06-18] MEDS: NS 1000 ML 1,000 ML IV SCH ×2 (06:03→20:41)
[2018-06-18] MEDS: WELCHOL PO SCH ×2 (06:03→16:57)
[2018-06-18] MEDS: GLUCOTROL PO SCH (06:03)
[2018-06-18] MEDS: NexIUM PO SCH (09:38)
[2018-06-18] MEDS: PLAVIX PO SCH (09:39)
[2018-06-18] MEDS: PROzac PO SCH (09:39)
[2018-06-18] MEDS: LOVAZA PO SCH (09:39)
[2018-06-18] MEDS: ZyrTEC TAB 10 MG PO SCH (09:40)
[2018-06-18] MEDS: NORVASC TAB 5 MG PO SCH (09:40)
[2018-06-18] MEDS: JANUVIA PO SCH (09:40)
[2018-06-18] MEDS: ROCEPHIN VIAL 1 GRAM IVP SCH (09:41)
[2018-06-18] MEDS: LOVENOX INJ 40 MG SYR SC SCH (09:41)
[2018-06-18] MEDS: NAMENDA TAB 10 MG PO SCH (09:48)
--- NOTE | 2018-06-18 10:15 | RAD ---
HISTORY: Shortness of breath. Study: Portable chest. Comparison: Chest x-ray dated June 15, 2018. Findings: The trachea is midline. The cardiac silhouette is unremarkable. Chronic emphysematous changes. 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 No obvious focal consolidation, pleural effusion, or pneumothorax. The bony thorax is unremarkable. IMPRESSION: No acute cardiopulmonary disease. Reported By:
[2018-06-18] MEDS: HumuLIN R SUBCUT PRN ×3 (11:54→17:01)
[2018-06-18] MEDS: SYNTHROID 50 mcg TAB PO SCH (17:00)
[2018-06-18] MEDS: LIPITOR TAB 40 MG PO SCH (20:40)
[2018-06-18] MEDS: ULTRAM PO PRN (20:40)
[2018-06-18] MEDS: SINEquan PO SCH (20:40)
[2018-06-18] MEDS: SNACK - Diabetic Appropriate PO SCH (20:41)
[2018-06-19] MEDS: NS 1000 ML 1,000 ML IV SCH ×3 (02:00→21:30)
[2018-06-19 05:28] LABS: BASOPHILS % (AUTO) 0.6 % (0.2-1.0); EOSINOPHILS # (AUTO) 0.2 x10^3/uL (0.0-0.2); EOSINOPHILS % (AUTO) 2.3 % (0.9-2.9); HEMATOCRIT 35.1 % (36.0-47.0); HEMOGLOBIN 11.7 g/dL (12.0-16.0); LYMPHOCYTES # (AUTO) 1.3 X10^3/uL (1.3-2.9); LYMPHOCYTES % (AUTO) 17.3 % (21.0-51.0); MEAN CORPUSCULAR HEMOGLOBIN 26.9 pg (27.0-34.0); MEAN CORPUSCULAR HGB CONC 33.4 g/dL (33.0-35.0); MEAN CORPUSCULAR VOLUME 80.6 fL (80.0-100.0); MEAN PLATELET VOLUME 9.3 fL (7.4-11.0); MONOCYTES # (AUTO) 0.7 x10^3/uL (0.3-0.8); MONOCYTES % (AUTO) 9.4 % (0.0-13.0); NEUTROPHILS # (AUTO) 5.3 x10^3/uL (2.2-4.8); NEUTROPHILS % (AUTO) 70.4 % (42.0-75.0); PLATELET COUNT 211 X10^3/uL (150.0-450.0); RED BLOOD COUNT 4.36 X10^6/uL (3.5-5.4); RED CELL DISTRIBUTION WIDTH 14.6 % (11.6-16.5); WHITE BLOOD COUNT 7.6 X10^3/uL (3.6-10.0)
[2018-06-19 05:41] LABS: ALANINE AMINOTRANSFERASE 30 Units/L (12-78); ALBUMIN 2.6 g/dL (3.4-5.0); ALKALINE PHOSPHATASE 287 Units/L (46-116); ASPARTATE AMINO TRANSFERASE 34 Units/L (15-37); BLOOD UREA NITROGEN 13 mg/dL (7-18); CALCIUM 8.3 mg/dL (8.5-10.1); CARBON DIOXIDE 26.3 mmol/L (21-32); CHLORIDE 103 mmol/L (98-107); COR CA(FOR HYPOALB) 9.4 mg/dL (8.5-10.1); COR NA(FOR HYPERGLY) 143 mmol/L (136-145); CREATININE 1.02 mg/dL (0.55-1.02); SODIUM 139 mmol/L (136-145); TOTAL PROTEIN 6.6 g/dL (6.4-8.2); eGFR NON BLACK RACES 54 (>60)
[2018-06-19] MEDS: HumuLIN R SUBCUT PRN ×3 (05:59→21:29)
[2018-06-19] MEDS: WELCHOL PO SCH ×2 (05:59→16:25)
[2018-06-19] MEDS: GLUCOTROL PO SCH (05:59)
[2018-06-19] MEDS: NORVASC TAB 5 MG PO SCH (08:36)
[2018-06-19] MEDS: ZyrTEC TAB 10 MG PO SCH (08:36)
[2018-06-19] MEDS: LOVAZA PO SCH (08:36)
[2018-06-19] MEDS: ROCEPHIN VIAL 1 GRAM IVP SCH (08:36)
[2018-06-19] MEDS: NexIUM PO SCH (08:36)
[2018-06-19] MEDS: NAMENDA TAB 10 MG PO SCH (08:36)
[2018-06-19] MEDS: JANUVIA PO SCH (08:36)
[2018-06-19] MEDS: PROzac PO SCH (08:37)
[2018-06-19] MEDS: PLAVIX PO SCH (08:39)
[2018-06-19] MEDS: LOVENOX INJ 40 MG SYR SC SCH (08:39)
[2018-06-19] MEDS: K-DUR TAB 20 MEQ PO PRN (15:04)
[2018-06-19] MEDS: SYNTHROID 50 mcg TAB PO SCH (16:25)
[2018-06-19] MEDS: SNACK - Diabetic Appropriate PO SCH (20:55)
[2018-06-19] MEDS: LIPITOR TAB 40 MG PO SCH (21:16)
[2018-06-19] MEDS: SINEquan PO SCH (21:16)
[2018-06-20] MEDS: GLUCOTROL PO SCH (06:00)
[2018-06-20] MEDS: WELCHOL PO SCH ×2 (06:00→17:10)
[2018-06-20] MEDS: HumuLIN R SUBCUT PRN ×4 (06:00→20:35)
[2018-06-20 06:03] LABS: BASOPHILS % (AUTO) 0.6 % (0.2-1.0); EOSINOPHILS # (AUTO) 0.1 x10^3/uL (0.0-0.2); EOSINOPHILS % (AUTO) 1.6 % (0.9-2.9); HEMATOCRIT 36.3 % (36.0-47.0); HEMOGLOBIN 12.1 g/dL (12.0-16.0); LYMPHOCYTES # (AUTO) 1.3 X10^3/uL (1.3-2.9); MEAN CORPUSCULAR HEMOGLOBIN 26.7 pg (27.0-34.0); MEAN CORPUSCULAR HGB CONC 33.3 g/dL (33.0-35.0); MEAN CORPUSCULAR VOLUME 80.2 fL (80.0-100.0); MEAN PLATELET VOLUME 8.6 fL (7.4-11.0); MONOCYTES # (AUTO) 0.7 x10^3/uL (0.3-0.8); NEUTROPHILS # (AUTO) 4.6 x10^3/uL (2.2-4.8); NEUTROPHILS % (AUTO) 68.8 % (42.0-75.0); PLATELET COUNT 210 X10^3/uL (150.0-450.0); RED BLOOD COUNT 4.52 X10^6/uL (3.5-5.4); WHITE BLOOD COUNT 6.6 X10^3/uL (3.6-10.0)
[2018-06-20 06:23] LABS: ALANINE AMINOTRANSFERASE 32 Units/L (12-78); ALBUMIN 2.8 g/dL (3.4-5.0); ALKALINE PHOSPHATASE 308 Units/L (46-116); ASPARTATE AMINO TRANSFERASE 33 Units/L (15-37); BLOOD UREA NITROGEN 11 mg/dL (7-18); CALCIUM 8.9 mg/dL (8.5-10.1); CARBON DIOXIDE 27.6 mmol/L (21-32); CHLORIDE 104 mmol/L (98-107); COR CA(FOR HYPOALB) 9.9 mg/dL (8.5-10.1); COR NA(FOR HYPERGLY) 144 mmol/L (136-145); SODIUM 140 mmol/L (136-145); eGFR NON BLACK RACES 56 (>60)
[2018-06-20] MEDS: K-DUR TAB 20 MEQ PO PRN (07:02)
[2018-06-20] MEDS: LOVAZA PO SCH (08:10)
[2018-06-20] MEDS: ZyrTEC TAB 10 MG PO SCH (08:10)
[2018-06-20] MEDS: NexIUM PO SCH (08:10)
[2018-06-20] MEDS: PROzac PO SCH (08:10)
[2018-06-20] MEDS: ROCEPHIN VIAL 1 GRAM IVP SCH (08:10)
[2018-06-20] MEDS: NAMENDA TAB 10 MG PO SCH (08:10)
[2018-06-20] MEDS: NORVASC TAB 5 MG PO SCH (08:10)
[2018-06-20] MEDS: COLACE CAP 100 MG PO PRN (08:11)
[2018-06-20] MEDS: LOVENOX INJ 40 MG SYR SC SCH (08:11)
[2018-06-20] MEDS: JANUVIA PO SCH (08:11)
[2018-06-20] MEDS: PLAVIX PO SCH (08:11)
[2018-06-20] MEDS: MAGNESIUM SULFATE 1 GRAM/100 mL PREMIX 1 GM/100 ML BAG IV PRN ×2 (08:15→10:00)
[2018-06-20] MEDS: NS 1000 ML 1,000 ML IV SCH ×3 (10:34→23:50)
--- NOTE | 2018-06-20 14:49 | PCM.PROG ---
Progress Note - Progress Note for Day of Date of Exam: 06/19/18 - Subjective Subjective: MS. ESPARZA IS A 87 WF PATIENT OF WHO WAS AN ER ADMISSION ON 06/14 AFTER SYNCOPE. PT HAS HX OF DM AND CAD. FAMILY REPORTS BRIEF LOC, THEN AXO WITH CO BACK PAIN FOLLOWING FALL. 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 SHE HAD A THORACIC SPINE CT WHICH REVEALED A T5 FRACTURE. SHE COMPLAINS OF WEAKNESS, LEFT SHOULDER PAIN, AND BACK PAIN TODAY. SHE IS RECEIVING PHYSICAL THERAPY WHILE IN THE HOSPITAL. PCP HAS DISCUSSED CORRECTION FOR PHYSICAL THEARAPY WITH PATIENT. FAMILY IS STILL DECIDING. STAFF REPORTS CONFUSION AT TIMES. PT HAS HX OF MILD VASCULAR DEMENTIA, NO SIGNIFICANT HISTORY OF BEHAVIOR DISTURBANCE. HER VITALS THIS MORNING ARE 97.0-80-20-95%-175/76. LABS WERE OBTAINED. ABNORMAL LAB VALUES INCLUDE THE FOLLOWING: GB 11.7, HCT 35.1, GLUCOSE 276, CALCIUM 8.3, ALK PHOS 287, ALBUMIN 2.6. WE WILL CONTINUE WITH IV HYDRATION, PHYSICAL THERAPY, PAIN MANAGEMENT, AND CURRENT PLAN OF CARE TODAY. OTHERWISE, WE PLAN TO FOLLOW UP WITH AM LABS AND CONTINUE TO MONITOR. - Past Medical Family Social History Past Med/Fam/Surg Hx: No changes since H&P Allergies: Allergies acetaminophen Allergy (Verified 06/15/18 09:00) pyrilamine Allergy (Verified 06/15/18 09:00) - Review of Systems ROS: No change since H&P - Vital Signs and I&O's Vital Signs: Temperature 97.6 F Pulse Rate [Left Brachial] 65 Pulse Rate 65 Respiratory Rate 18 Blood Pressure [Right Arm] 189/84 Blood Pressure [Left Arm] 132/73 Blood Pressure 173/73 O2 Sat by Pulse Oximetry 98 Intake and Output: Intake & Output 06/18/18 06/19/18 06/20/18 06/21/18 11:59 11:59 11:59 11:59 Intake Total 1570 / 1570 2289 / 2289 2501 / 2501 Balance 1570 / 1570 2289 / 2289 2501 / 2501 - Physical Exam Oriented: Normal Eyes: Normal Ear: Normal Nose: Normal Throat: Normal Respiratory: Diminished Cardiovascular: Normal, Other (HAS DEFIBRILLATOR) : Normal Auscultation: Bowel Sounds: Normal Palpation: Normal Tenderness: Normal Skin: Decreased Turgur Musculoskeletal: Right, Left, Shoulder, Leg, Back:Thoracic, Back:Lumbar, Tender, Motor Deficit, Crepitance Psychiatric: Normal Affect: Anxious Speech Pattern: Clear, Appropriate - Laboratory and Diagnostics Result Diagrams: 06/20/18 05:16 06/20/18 13:50 Labs: 06/16/18 00:10 Urine,Clean Catch Urine Culture - Final Laboratory WBC 6.6 X10^3/uL (3.6-10.0) 06/20/18 05:16 RBC 4.52 X10^6/uL (3.5-5.4) 06/20/18 05:16 Hgb 12.1 g/dL (12.0-16.0) 06/20/18 05:16 Hct 36.3 % (36.0-47.0) 06/20/18 05:16 MCV 80.2 fL (80.0-100.0) 06/20/18 05:16 MCH 26.7 pg (27.0-34.0) L 06/20/18 05:16 MCHC 33.3 g/dL (33.0-35.0) 06/20/18 05:16 RDW 15.0 % (11.6-16.5) 06/20/18 05:16 Plt Count 210 X10^3/uL (150.0-450.0) 06/20/18 05:16 MPV 8.6 fL (7.4-11.0) 06/20/18 05:16 Neut % (Auto) 68.8 % (42.0-75.0) 06/20/18 05:16 Lymph % (Auto) 19.0 % (21.0-51.0) L 06/20/18 05:16 [place] % (Auto) 10.0 % (0.0-13.0) 06/20/18 05:16 Eos % (Auto) 1.6 % (0.9-2.9) 06/20/18 05:16 Baso % (Auto) 0.6 % (0.2-1.0) 06/20/18 05:16 Neut # (Auto) 4.6 x10^3/uL (2.2-4.8) 06/20/18 05:16 Lymph # (Auto) 1.3 X10^3/uL (1.3-2.9) 06/20/18 05:16 [place] # (Auto) 0.7 x10^3/uL (0.3-0.8) 06/20/18 05:16 Eos # (Auto) 0.1 x10^3/uL (0.0-0.2) 06/20/18 05:16 Baso # (Auto) 0.0 X10^3/uL (0.0-0.1) 06/20/18 05:16 Absolute Nucleated RBC 0.0 /100WBC 06/20/18 05:16 Sodium 140 mmol/L (136-145) 06/20/18 05:16 Corrected Sodium 144 mmol/L (136-145) 06/20/18 05:16 Potassium 3.8 mmol/L (3.5-5.1) 06/20/18 13:50 Chloride 104 mmol/L (98-107) 06/20/18 05:16 Carbon Dioxide 27.6 mmol/L (21-32) 06/20/18 05:16 BUN 11 mg/dL (7-18) 06/20/18 05:16 Creatinine 1.00 mg/dL (0.55-1.02) 06/20/18 05:16 Est GFR (MDRD) Af Amer > 60 (>60) 06/20/18 05:16 Est GFR (MDRD) Non-Af 56 (>60) L 06/20/18 05:16 Glucose 257 mg/dL (65-99) H 06/20/18 05:16 POC Glucose (mg/dL) 114 mg/dL (65-99) H 06/16/18 05:14 Calcium 8.9 mg/dL (8.5-10.1) 06/20/18 05:16 Corrected Calcium 9.9 mg/dL (8.5-10.1) 06/20/18 05:16 Magnesium 1.7 mg/dL (1.7-2.9) 06/20/18 05:16 Total Bilirubin 0.50 mg/dL (0.2-1.0) 06/20/18 05:16 AST 33 Units/L (15-37) 06/20/18 05:16 ALT 32 Units/L (12-78) 06/20/18 05:16 Alkaline Phosphatase 308 Units/L (46-116) H 06/20/18 05:16 Creatine Kinase 56 Units/L (26-192) 06/15/18 22:02 CK-MB (CK-2) 1.6 ng/mL (0-4.0) 06/15/18 22:02 CK/CKMB % Calc 2.9 % (<4) 06/15/18 22:02 Troponin I < 0.02 ng/mL (0-1.5) 06/15/18 22:02 Total Protein 7.0 g/dL (6.4-8.2) 06/20/18 05:16 Albumin 2.8 g/dL (3.4-5.0) L 06/20/18 05:16 Globulin 4.2 g/dL (2.5-4.5) 06/20/18 05:16 Albumin/Globulin Ratio 0.7 Ratio (1.1-2.1) L 06/20/18 05:16 Specimen Type Catherized urine 06/15/18 11:30 Urine Color Yellow (YELLOW) 06/15/18 11:30 Urine Appearance Clear (CLEAR) 06/15/18 11:30 Urine pH 7.0 (5.0 - 8.0) 06/15/18 11:30 Ur Specific [place] 1.010 (1.000-1.030) 06/15/18 11:30 Urine Protein 1+ (NEGATIVE) 06/15/18 11:30 Urine Glucose (UA) 2+ (NEGATIVE) 06/15/18 11:30 Urine Ketones Negative (NEGATIVE) 06/15/18 11:30 Urine Occult Blood Negative (NEGATIVE) 06/15/18 11:30 Urine Nitrite Negative (NEGATIVE) 06/15/18 11:30 Urine Bilirubin Negative (NEGATIVE) 06/15/18 11:30 Urine Urobilinogen Normal (NORMAL) 06/15/18 11:30 Ur Leukocyte Esterase Negative (NEGATIVE) 06/15/18 11:30 Urine RBC 0-2 /HPF (NONE SEEN) 06/15/18 11:30 Urine WBC 0-2 /HPF (NONE SEEN) 06/15/18 11:30 Ur Squamous Epith Cells Moderate /HPF (NEGATIVE) 06/15/18 11:30 Urine Bacteria Trace /HPF (NEGATIVE) 06/15/18 11:30 Ur Culture Indicated? No/not indicated 06/15/18 11:30
[2018-06-20] MEDS: SYNTHROID 50 mcg TAB PO SCH (17:10)
--- NOTE | 2018-06-20 18:55 | PCM.PROG ---
Progress Note - Progress Note for Day of Date of Exam: 06/20/18 - Subjective Subjective: MS. ESPARZA IS A 87 WF PATIENT OF WHO WAS AN ER ADMISSION ON 06/14 AFTER SYNCOPE. PT HAS HX OF DM AND CAD. FAMILY REPORTS BRIEF LOC, THEN WITH CO BACK PAIN FOLLOWING FALL. 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 SHE HAD A THORACIC SPINE CT WHICH REVEALED A T5 FRACTURE. SHE COMPLAINS OF WEAKNESS, LEFT SHOULDER PAIN, AND BACK PAIN TODAY. SHE IS RECEIVING PHYSICAL THERAPY WHILE IN THE HOSPITAL. PCP HAS DISCUSSED JAIL FOR PHYSICAL THEARAPY WITH PATIENT. FAMILY IS STILL DECIDING. STAFF REPORTS CONFUSION AT TIMES. PT HAS HX OF MILD VASCULAR DEMENTIA, NO SIGNIFICANT HISTORY OF BEHAVIOR DISTURBANCE. HER VITALS THIS MORNING ARE 97.8-75-18-97%-122/75. LABS WERE OBTAINED. ABNORMAL LAB VALUES INCLUDE THE FOLLOWING: POTASSIUM 3.4, GLUCOSE 257, ALK PHOS 308, ALBUMIN 2.8. WE WILL CONTINUE WITH IV HYDRATION, PHYSICAL THERAPY, PAIN MANAGEMENT, AND CURRENT PLAN OF CARE TODAY. WE WILL ORDER A BONE DENSITY SCAN FOR IN THE MORNING. OTHERWISE, WE PLAN TO FOLLOW UP WITH AM LABS AND CONTINUE TO MONITOR. - Past Medical Family Social History Past Med/Fam/Surg Hx: No changes since H&P Allergies: Allergies acetaminophen Allergy (Verified 06/15/18 09:00) pyrilamine Allergy (Verified 06/15/18 09:00) - Review of Systems ROS: No change since H&P - Vital Signs and I&O's Vital Signs: Temperature 98.0 F Pulse Rate [Left Brachial] 83 Pulse Rate 65 Respiratory Rate 18 Blood Pressure [Right Arm] 161/72 Blood Pressure [Left Arm] 132/73 Blood Pressure 173/73 O2 Sat by Pulse Oximetry 96 Intake and Output: Intake & Output 06/18/18 06/19/18 06/20/18 06/21/18 11:59 11:59 11:59 11:59 Intake Total 1570 / 1570 2289 / 2289 2501 / 2501 560 / 560 Balance 1570 / 1570 2289 / 2289 2501 / 2501 560 / 560 - Physical Exam Oriented: Normal Eyes: Normal Ear: Normal Nose: Normal Throat: Normal Respiratory: Diminished Cardiovascular: Normal, Other (HAS DEFIBRILLATOR) : Normal Auscultation: Bowel Sounds: Normal Tenderness: Normal Skin: Decreased Turgur Musculoskeletal: Right, Left, Shoulder, Leg, Back:Thoracic, Back:Lumbar, Tender, Motor Deficit, Crepitance Psychiatric: Normal Affect: Anxious Speech Pattern: Clear, Appropriate - Laboratory and Diagnostics Result Diagrams: 06/20/18 05:16 06/20/18 13:50 Labs: 06/16/18 00:10 Urine,Clean Catch Urine Culture - Final Laboratory WBC 6.6 X10^3/uL (3.6-10.0) 06/20/18 05:16 RBC 4.52 X10^6/uL (3.5-5.4) 06/20/18 05:16 Hgb 12.1 g/dL (12.0-16.0) 06/20/18 05:16 Hct 36.3 % (36.0-47.0) 06/20/18 05:16 MCV 80.2 fL (80.0-100.0) 06/20/18 05:16 MCH 26.7 pg (27.0-34.0) L 06/20/18 05:16 MCHC 33.3 g/dL (33.0-35.0) 06/20/18 05:16 RDW 15.0 % (11.6-16.5) 06/20/18 05:16 Plt Count 210 X10^3/uL (150.0-450.0) 06/20/18 05:16 MPV 8.6 fL (7.4-11.0) 06/20/18 05:16 Neut % (Auto) 68.8 % (42.0-75.0) 06/20/18 05:16 Lymph % (Auto) 19.0 % (21.0-51.0) L 06/20/18 05:16 [place] % (Auto) 10.0 % (0.0-13.0) 06/20/18 05:16 Eos % (Auto) 1.6 % (0.9-2.9) 06/20/18 05:16 Baso % (Auto) 0.6 % (0.2-1.0) 06/20/18 05:16 Neut # (Auto) 4.6 x10^3/uL (2.2-4.8) 06/20/18 05:16 Lymph # (Auto) 1.3 X10^3/uL (1.3-2.9) 06/20/18 05:16 [place] # (Auto) 0.7 x10^3/uL (0.3-0.8) 06/20/18 05:16 Eos # (Auto) 0.1 x10^3/uL (0.0-0.2) 06/20/18 05:16 Baso # (Auto) 0.0 X10^3/uL (0.0-0.1) 06/20/18 05:16 Absolute Nucleated RBC 0.0 /100WBC 06/20/18 05:16 Sodium 140 mmol/L (136-145) 06/20/18 05:16 Corrected Sodium 144 mmol/L (136-145) 06/20/18 05:16 Potassium 3.8 mmol/L (3.5-5.1) 06/20/18 13:50 Chloride 104 mmol/L (98-107) 06/20/18 05:16 Carbon Dioxide 27.6 mmol/L (21-32) 06/20/18 05:16 BUN 11 mg/dL (7-18) 06/20/18 05:16 Creatinine 1.00 mg/dL (0.55-1.02) 06/20/18 05:16 Est GFR (MDRD) Af Amer > 60 (>60) 06/20/18 05:16 Est GFR (MDRD) Non-Af 56 (>60) L 06/20/18 05:16 Glucose 257 mg/dL (65-99) H 06/20/18 05:16 POC Glucose (mg/dL) 114 mg/dL (65-99) H 06/16/18 05:14 Calcium 8.9 mg/dL (8.5-10.1) 06/20/18 05:16 Corrected Calcium 9.9 mg/dL (8.5-10.1) 06/20/18 05:16 Magnesium 1.7 mg/dL (1.7-2.9) 06/20/18 05:16 Total Bilirubin 0.50 mg/dL (0.2-1.0) 06/20/18 05:16 AST 33 Units/L (15-37) 06/20/18 05:16 ALT 32 Units/L (12-78) 06/20/18 05:16 Alkaline Phosphatase 308 Units/L (46-116) H 06/20/18 05:16 Creatine Kinase 56 Units/L (26-192) 06/15/18 22:02 CK-MB (CK-2) 1.6 ng/mL (0-4.0) 06/15/18 22:02 CK/CKMB % Calc 2.9 % (<4) 06/15/18 22:02 Troponin I < 0.02 ng/mL (0-1.5) 06/15/18 22:02 Total Protein 7.0 g/dL (6.4-8.2) 06/20/18 05:16 Albumin 2.8 g/dL (3.4-5.0) L 06/20/18 05:16 Globulin 4.2 g/dL (2.5-4.5) 06/20/18 05:16 Albumin/Globulin Ratio 0.7 Ratio (1.1-2.1) L 06/20/18 05:16 Specimen Type Catherized urine 06/15/18 11:30 Urine Color Yellow (YELLOW) 06/15/18 11:30 Urine Appearance Clear (CLEAR) 06/15/18 11:30 Urine pH 7.0 (5.0 - 8.0) 06/15/18 11:30 Ur Specific [place] 1.010 (1.000-1.030) 06/15/18 11:30 Urine Protein 1+ (NEGATIVE) 06/15/18 11:30 Urine Glucose (UA) 2+ (NEGATIVE) 06/15/18 11:30 Urine Ketones Negative (NEGATIVE) 06/15/18 11:30 Urine Occult Blood Negative (NEGATIVE) 06/15/18 11:30 Urine Nitrite Negative (NEGATIVE) 06/15/18 11:30 Urine Bilirubin Negative (NEGATIVE) 06/15/18 11:30 Urine Urobilinogen Normal (NORMAL) 06/15/18 11:30 Ur Leukocyte Esterase Negative (NEGATIVE) 06/15/18 11:30 Urine RBC 0-2 /HPF (NONE SEEN) 06/15/18 11:30 Urine WBC 0-2 /HPF (NONE SEEN) 06/15/18 11:30 Ur Squamous Epith Cells Moderate /HPF (NEGATIVE) 06/15/18 11:30 Urine Bacteria Trace /HPF (NEGATIVE) 06/15/18 11:30 Ur Culture Indicated? No/not indicated 06/15/18 11:30
[2018-06-20] MEDS: SINEquan PO SCH (20:25)
[2018-06-20] MEDS: ULTRAM PO PRN (20:25)
[2018-06-20] MEDS: LIPITOR TAB 40 MG PO SCH (20:25)
[2018-06-20] MEDS: SNACK - Diabetic Appropriate PO SCH (20:35)
[2018-06-21 05:18] LABS: BASOPHILS % (AUTO) 0.5 % (0.2-1.0); EOSINOPHILS # (AUTO) 0.2 x10^3/uL (0.0-0.2); EOSINOPHILS % (AUTO) 3.2 % (0.9-2.9); HEMOGLOBIN 12.3 g/dL (12.0-16.0); LYMPHOCYTES # (AUTO) 1.5 X10^3/uL (1.3-2.9); LYMPHOCYTES % (AUTO) 24.9 % (21.0-51.0); MEAN CORPUSCULAR HEMOGLOBIN 26.8 pg (27.0-34.0); MEAN CORPUSCULAR HGB CONC 33.1 g/dL (33.0-35.0); MEAN CORPUSCULAR VOLUME 80.9 fL (80.0-100.0); MONOCYTES # (AUTO) 0.7 x10^3/uL (0.3-0.8); MONOCYTES % (AUTO) 11.2 % (0.0-13.0); NEUTROPHILS # (AUTO) 3.5 x10^3/uL (2.2-4.8); NEUTROPHILS % (AUTO) 60.2 % (42.0-75.0); PLATELET COUNT 215 X10^3/uL (150.0-450.0); RED BLOOD COUNT 4.58 X10^6/uL (3.5-5.4); WHITE BLOOD COUNT 5.9 X10^3/uL (3.6-10.0)
[2018-06-21] MEDS: HumuLIN R SUBCUT PRN ×4 (05:34→21:43)
[2018-06-21] MEDS: ULTRAM PO PRN ×2 (05:35→20:17)
[2018-06-21 05:55] LABS: ALANINE AMINOTRANSFERASE 30 Units/L (12-78); ALBUMIN 2.8 g/dL (3.4-5.0); ALKALINE PHOSPHATASE 297 Units/L (46-116); ASPARTATE AMINO TRANSFERASE 30 Units/L (15-37); BLOOD UREA NITROGEN 10 mg/dL (7-18); CALCIUM 8.5 mg/dL (8.5-10.1); CARBON DIOXIDE 26.4 mmol/L (21-32); CHLORIDE 103 mmol/L (98-107); COR CA(FOR HYPOALB) 9.5 mg/dL (8.5-10.1); COR NA(FOR HYPERGLY) 141 mmol/L (136-145); CREATININE 1.01 mg/dL (0.55-1.02); MAGNESIUM 1.7 mg/dL (1.7-2.9); SODIUM 138 mmol/L (136-145); eGFR NON BLACK RACES 55 (>60)
[2018-06-21] MEDS: GLUCOTROL PO SCH (06:00)
[2018-06-21] MEDS: WELCHOL PO SCH ×2 (06:00→16:32)
[2018-06-21] MEDS: MAGNESIUM SULFATE 1 GRAM/100 mL PREMIX 1 GM/100 ML BAG IV PRN ×2 (06:06→19:51)
[2018-06-21] MEDS: PROzac PO SCH (09:25)
[2018-06-21] MEDS: NAMENDA TAB 10 MG PO SCH (09:25)
[2018-06-21] MEDS: LOVAZA PO SCH (09:25)
[2018-06-21] MEDS: NexIUM PO SCH (09:25)
[2018-06-21] MEDS: ZyrTEC TAB 10 MG PO SCH (09:25)
[2018-06-21] MEDS: JANUVIA PO SCH (09:25)
[2018-06-21] MEDS: NORVASC TAB 5 MG PO SCH (09:26)
[2018-06-21] MEDS: LOVENOX INJ 40 MG SYR SC SCH (09:28)
[2018-06-21] MEDS: PLAVIX PO SCH (09:28)
[2018-06-21] MEDS: ROCEPHIN VIAL 1 GRAM IVP SCH (09:28)
[2018-06-21] MEDS: COLACE CAP 100 MG PO PRN (09:40)
[2018-06-21] MEDS: MILK OF MAGNESIA PO PRN ×2 (09:40→20:16)
[2018-06-21] MEDS: MILK OF MAGNESIA PO SCH (11:13)
--- NOTE | 2018-06-21 13:48 | PCM.PROG ---
Progress Note - Progress Note for Day of Date of Exam: 06/21/18 - Subjective Subjective: MS. ESPARZA IS A 87 WF PATIENT OF WHO WAS AN ER ADMISSION ON 06/14 AFTER SYNCOPE. PT HAS HX OF DM AND CAD. FAMILY REPORTS BRIEF LOC, THEN WITH CO BACK PAIN FOLLOWING FALL. 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 SHE HAD A THORACIC SPINE CT WHICH REVEALED A T5 FRACTURE. SHE COMPLAINS OF WEAKNESS, LEFT SHOULDER PAIN, AND BACK PAIN CONTINUED.SHE IS RECEIVING PHYSICAL THERAPY WHILE IN THE HOSPITAL. PCP HAS DISCUSSED LONGTERM FOR PHYSICAL THEARAPY WITH PATIENT. OUTPT BONE DENISTY ORDERED AND REFERRAL TO DR PAULA. WE WILL CONTINUE WITH IV HYDRATION, PHYSICAL THERAPY, PAIN MANAGEMENT, AND CURRENT PLAN OF CARE TODAY. - Past Medical Family Social History Past Med/Fam/Surg Hx: No changes since H&P Allergies: Allergies acetaminophen Allergy (Verified 06/15/18 09:00) pyrilamine Allergy (Verified 06/15/18 09:00) - Review of Systems ROS: No change since H&P - Vital Signs and I&O's Vital Signs: Temperature 97.5 F Pulse Rate [Left Brachial] 72 Pulse Rate 65 Respiratory Rate 20 Blood Pressure [Right Arm] 168/83 Blood Pressure [Left Arm] 164/74 Blood Pressure 173/73 O2 Sat by Pulse Oximetry 96 Intake and Output: Intake & Output 06/19/18 06/20/18 06/21/18 06/22/18 11:59 11:59 11:59 11:59 Intake Total 2289 / 2289 2501 / 2501 2320 / 2320 Balance 2289 / 2289 2501 / 2501 2320 / 2320 - Physical Exam Oriented: Normal Eyes: Normal Ear: Normal Nose: Normal Throat: Normal Respiratory: Diminished Cardiovascular: Normal, Other (HAS DEFIBRILLATOR) : Normal Auscultation: Bowel Sounds: Normal Tenderness: Normal Skin: Decreased Turgur Musculoskeletal: Right, Left, Shoulder, Leg, Back:Thoracic, Back:Lumbar, Tender, Motor Deficit, C[place]itance Psychiatric: Normal Affect: Anxious Speech Pattern: Clear, Appropriate - Laboratory and Diagnostics Result Diagrams: 06/21/18 04:35 06/21/18 04:35 Labs: 06/16/18 00:10 Urine,Clean Catch Urine Culture - Final Laboratory WBC 5.9 X10^3/uL (3.6-10.0) 06/21/18 04:35 RBC 4.58 X10^6/uL (3.5-5.4) 06/21/18 04:35 Hgb 12.3 g/dL (12.0-16.0) 06/21/18 04:35 Hct 37.0 % (36.0-47.0) 06/21/18 04:35 MCV 80.9 fL (80.0-100.0) 06/21/18 04:35 MCH 26.8 pg (27.0-34.0) L 06/21/18 04:35 MCHC 33.1 g/dL (33.0-35.0) 06/21/18 04:35 RDW 15.0 % (11.6-16.5) 06/21/18 04:35 Plt Count 215 X10^3/uL (150.0-450.0) 06/21/18 04:35 MPV 9.0 fL (7.4-11.0) 06/21/18 04:35 Neut % (Auto) 60.2 % (42.0-75.0) 06/21/18 04:35 Lymph % (Auto) 24.9 % (21.0-51.0) 06/21/18 04:35 [place] % (Auto) 11.2 % (0.0-13.0) 06/21/18 04:35 Eos % (Auto) 3.2 % (0.9-2.9) H 06/21/18 04:35 Baso % (Auto) 0.5 % (0.2-1.0) 06/21/18 04:35 Neut # (Auto) 3.5 x10^3/uL (2.2-4.8) 06/21/18 04:35 Lymph # (Auto) 1.5 X10^3/uL (1.3-2.9) 06/21/18 04:35 [place] # (Auto) 0.7 x10^3/uL (0.3-0.8) 06/21/18 04:35 Eos # (Auto) 0.2 x10^3/uL (0.0-0.2) 06/21/18 04:35 Baso # (Auto) 0.0 X10^3/uL (0.0-0.1) 06/21/18 04:35 Absolute Nucleated RBC 0.2 /100WBC 06/21/18 04:35 Sodium 138 mmol/L (136-145) 06/21/18 04:35 Corrected Sodium 141 mmol/L (136-145) 06/21/18 04:35 Potassium 3.9 mmol/L (3.5-5.1) 06/21/18 04:35 Chloride 103 mmol/L (98-107) 06/21/18 04:35 Carbon Dioxide 26.4 mmol/L (21-32) 06/21/18 04:35 BUN 10 mg/dL (7-18) 06/21/18 04:35 Creatinine 1.01 mg/dL (0.55-1.02) 06/21/18 04:35 Est GFR (MDRD) Af Amer > 60 (>60) 06/21/18 04:35 Est GFR (MDRD) Non-Af 55 (>60) L 06/21/18 04:35 Glucose 224 mg/dL (65-99) H 06/21/18 04:35 POC Glucose (mg/dL) 114 mg/dL (65-99) H 06/16/18 05:14 Calcium 8.5 mg/dL (8.5-10.1) 06/21/18 04:35 Corrected Calcium 9.5 mg/dL (8.5-10.1) 06/21/18 04:35 Magnesium 1.7 mg/dL (1.7-2.9) 06/21/18 04:35 Total Bilirubin 0.60 mg/dL (0.2-1.0) 06/21/18 04:35 AST 30 Units/L (15-37) 06/21/18 04:35 ALT 30 Units/L (12-78) 06/21/18 04:35 Alkaline Phosphatase 297 Units/L (46-116) H 06/21/18 04:35 Creatine Kinase 56 Units/L (26-192) 06/15/18 22:02 CK-MB (CK-2) 1.6 ng/mL (0-4.0) 06/15/18 22:02 CK/CKMB % Calc 2.9 % (<4) 06/15/18 22:02 Troponin I < 0.02 ng/mL (0-1.5) 06/15/18 22:02 Total Protein 7.0 g/dL (6.4-8.2) 06/21/18 04:35 Albumin 2.8 g/dL (3.4-5.0) L 06/21/18 04:35 Globulin 4.2 g/dL (2.5-4.5) 06/21/18 04:35 Albumin/Globulin Ratio 0.7 Ratio (1.1-2.1) L 06/21/18 04:35 Specimen Type Catherized urine 06/15/18 11:30 Urine Color Yellow (YELLOW) 06/15/18 11:30 Urine Appearance Clear (CLEAR) 06/15/18 11:30 Urine pH 7.0 (5.0 - 8.0) 06/15/18 11:30 Ur Specific [place] 1.010 (1.000-1.030) 06/15/18 11:30 Urine Protein 1+ (NEGATIVE) 06/15/18 11:30 Urine Glucose (UA) 2+ (NEGATIVE) 06/15/18 11:30 Urine Ketones Negative (NEGATIVE) 06/15/18 11:30 Urine Occult Blood Negative (NEGATIVE) 06/15/18 11:30 Urine Nitrite Negative (NEGATIVE) 06/15/18 11:30 Urine Bilirubin Negative (NEGATIVE) 06/15/18 11:30 Urine Urobilinogen Normal (NORMAL) 06/15/18 11:30 Ur Leukocyte Esterase Negative (NEGATIVE) 06/15/18 11:30 Urine RBC 0-2 /HPF (NONE SEEN) 06/15/18 11:30 Urine WBC 0-2 /HPF (NONE SEEN) 06/15/18 11:30 Ur Squamous Epith Cells Moderate /HPF (NEGATIVE) 06/15/18 11:30 Urine Bacteria Trace /HPF (NEGATIVE) 06/15/18 11:30 Ur Culture Indicated? No/not indicated 06/15/18 11:30 - Plan (1) Syncope Status: Acute Plan: CARDIAC MONITORING. PAIN CONTROL, AM LABS. URINE CULTURE, BP AND BS CONTROL. EKG ON ADMISSION. PT, XRAYS IN ER, CASE MANAGEMENT CONSULT (2) Compression fx, thoracic spine Status: Acute Plan: PAIN CONTROL, PT. REFERRAL TO [facility] ON OUTPT, CASE MANAGEMENT FOR REHAB PLACEMENT (3) UTI (urinary tract infection) Status: Acute (4) Fall Status: Acute (5) Diabetes Status: Acute (6) CAD (coronary artery disease) Status: Acute (7) Altered mental state Status: Acute (8) Generalized weakness Status: Acute
[2018-06-21] MEDS: NS 1000 ML 1,000 ML IV SCH (16:32)
[2018-06-21] MEDS: SYNTHROID 50 mcg TAB PO SCH (16:32)
[2018-06-21] MEDS: LIPITOR TAB 40 MG PO SCH (20:16)
[2018-06-21] MEDS: COLACE CAP 100 MG PO SCH (20:17)
[2018-06-21] MEDS: SINEquan PO SCH (20:17)
[2018-06-21] MEDS: SNACK - Diabetic Appropriate PO SCH (21:14)
[2018-06-22] MEDS: NS 1000 ML 1,000 ML IV SCH ×3 (04:23→15:22)
[2018-06-22 05:20] LABS: BASOPHILS % (AUTO) 0.7 % (0.2-1.0); EOSINOPHILS # (AUTO) 0.2 x10^3/uL (0.0-0.2); EOSINOPHILS % (AUTO) 2.7 % (0.9-2.9); HEMATOCRIT 37.1 % (36.0-47.0); HEMOGLOBIN 12.1 g/dL (12.0-16.0); LYMPHOCYTES # (AUTO) 1.4 X10^3/uL (1.3-2.9); LYMPHOCYTES % (AUTO) 21.8 % (21.0-51.0); MEAN CORPUSCULAR HEMOGLOBIN 26.4 pg (27.0-34.0); MEAN CORPUSCULAR HGB CONC 32.6 g/dL (33.0-35.0); MEAN CORPUSCULAR VOLUME 80.7 fL (80.0-100.0); MEAN PLATELET VOLUME 9.1 fL (7.4-11.0); MONOCYTES # (AUTO) 0.7 x10^3/uL (0.3-0.8); MONOCYTES % (AUTO) 10.7 % (0.0-13.0); NEUTROPHILS % (AUTO) 64.1 % (42.0-75.0); PLATELET COUNT 210 X10^3/uL (150.0-450.0); RED CELL DISTRIBUTION WIDTH 15.2 % (11.6-16.5); WHITE BLOOD COUNT 6.3 X10^3/uL (3.6-10.0)
[2018-06-22 05:32] LABS: ALANINE AMINOTRANSFERASE 33 Units/L (12-78); ALBUMIN 2.9 g/dL (3.4-5.0); ALKALINE PHOSPHATASE 317 Units/L (46-116); ASPARTATE AMINO TRANSFERASE 35 Units/L (15-37); BLOOD UREA NITROGEN 11 mg/dL (7-18); CALCIUM 8.9 mg/dL (8.5-10.1); CARBON DIOXIDE 29.7 mmol/L (21-32); CHLORIDE 102 mmol/L (98-107); COR CA(FOR HYPOALB) 9.8 mg/dL (8.5-10.1); COR NA(FOR HYPERGLY) 140 mmol/L (136-145); CREATININE 0.99 mg/dL (0.55-1.02); MAGNESIUM 2.2 mg/dL (1.7-2.9); SODIUM 137 mmol/L (136-145); eGFR NON BLACK RACES 56 (>60)
[2018-06-22] MEDS: HumuLIN R SUBCUT PRN ×3 (05:45→21:33)
[2018-06-22] MEDS: K-DUR TAB 20 MEQ PO PRN (05:55)
[2018-06-22] MEDS: GLUCOTROL PO SCH (06:00)
[2018-06-22] MEDS: WELCHOL PO SCH ×2 (06:00→16:41)
[2018-06-22] MEDS: LOVAZA PO SCH (08:45)
[2018-06-22] MEDS: NexIUM PO SCH (08:45)
[2018-06-22] MEDS: JANUVIA PO SCH (08:45)
[2018-06-22] MEDS: MILK OF MAGNESIA PO SCH (08:45)
[2018-06-22] MEDS: LOVENOX INJ 40 MG SYR SC SCH (08:45)
[2018-06-22] MEDS: NAMENDA TAB 10 MG PO SCH (08:45)
[2018-06-22] MEDS: PROzac PO SCH (08:46)
[2018-06-22] MEDS: NORVASC TAB 5 MG PO SCH (08:46)
[2018-06-22] MEDS: ZyrTEC TAB 10 MG PO SCH (08:46)
[2018-06-22] MEDS: PLAVIX PO SCH (08:46)
[2018-06-22] MEDS: SYNTHROID 50 mcg TAB PO SCH (16:41)
[2018-06-22] MEDS: ULTRAM PO PRN (20:16)
[2018-06-22] MEDS: COLACE CAP 100 MG PO SCH (20:17)
[2018-06-22] MEDS: SINEquan PO SCH (20:17)
[2018-06-22] MEDS: LIPITOR TAB 40 MG PO SCH (20:17)
[2018-06-22] MEDS: SNACK - Diabetic Appropriate PO SCH (20:21)
[2018-06-22] MEDS ORDERED: ZOFRAN INJ 4 MG VIAL IVP PRN (22:51)
[2018-06-23] MEDS: NS 1000 ML 1,000 ML IV SCH (04:56)
[2018-06-23 05:26] LABS: BASOPHILS # (AUTO) 0.1 X10^3/uL (0.0-0.1); BASOPHILS % (AUTO) 0.8 % (0.2-1.0); EOSINOPHILS # (AUTO) 0.2 x10^3/uL (0.0-0.2); EOSINOPHILS % (AUTO) 2.7 % (0.9-2.9); HEMATOCRIT 36.6 % (36.0-47.0); HEMOGLOBIN 12.1 g/dL (12.0-16.0); LYMPHOCYTES # (AUTO) 1.4 X10^3/uL (1.3-2.9); LYMPHOCYTES % (AUTO) 22.6 % (21.0-51.0); MEAN CORPUSCULAR HEMOGLOBIN 26.6 pg (27.0-34.0); MEAN CORPUSCULAR VOLUME 80.7 fL (80.0-100.0); MEAN PLATELET VOLUME 9.1 fL (7.4-11.0); MONOCYTES # (AUTO) 0.7 x10^3/uL (0.3-0.8); MONOCYTES % (AUTO) 10.9 % (0.0-13.0); PLATELET COUNT 210 X10^3/uL (150.0-450.0); RED BLOOD COUNT 4.53 X10^6/uL (3.5-5.4); RED CELL DISTRIBUTION WIDTH 15.2 % (11.6-16.5); WHITE BLOOD COUNT 6.4 X10^3/uL (3.6-10.0)
[2018-06-23 05:33] LABS: ALANINE AMINOTRANSFERASE 35 Units/L (12-78); ALBUMIN 2.8 g/dL (3.4-5.0); ALKALINE PHOSPHATASE 326 Units/L (46-116); ASPARTATE AMINO TRANSFERASE 36 Units/L (15-37); BLOOD UREA NITROGEN 12 mg/dL (7-18); CALCIUM 8.7 mg/dL (8.5-10.1); CARBON DIOXIDE 28.8 mmol/L (21-32); CHLORIDE 100 mmol/L (98-107); COR CA(FOR HYPOALB) 9.7 mg/dL (8.5-10.1); COR NA(FOR HYPERGLY) 141 mmol/L (136-145); SODIUM 137 mmol/L (136-145); TOTAL PROTEIN 7.1 g/dL (6.4-8.2); eGFR NON BLACK RACES 56 (>60)
[2018-06-23] MEDS: HumuLIN R SUBCUT PRN ×2 (05:48→13:09)
[2018-06-23] MEDS: K-DUR TAB 20 MEQ PO PRN (05:56)
[2018-06-23] MEDS: WELCHOL PO SCH (06:02)
[2018-06-23] MEDS: GLUCOTROL PO SCH (06:02)
[2018-06-23] MEDS: NORVASC TAB 5 MG PO SCH (08:14)
[2018-06-23] MEDS: LOVAZA PO SCH (08:14)
[2018-06-23] MEDS: NexIUM PO SCH (08:14)
[2018-06-23] MEDS: NAMENDA TAB 10 MG PO SCH (08:14)
[2018-06-23] MEDS: JANUVIA PO SCH (08:14)
[2018-06-23] MEDS: ZyrTEC TAB 10 MG PO SCH (08:14)
[2018-06-23] MEDS: PROzac PO SCH (08:15)
[2018-06-23] MEDS: PLAVIX PO SCH (08:15)
[2018-06-23] MEDS: LOVENOX INJ 40 MG SYR SC SCH (08:15)
[2018-06-23] MEDS: MILK OF MAGNESIA PO SCH (08:16)
[2018-06-23 12:26] VITALS: BP 123/65
== END 2018-06-23 14:20 | DRG 312 ==
LOC: MED/SURG 08:43 → ER 08:43 → MED/SURG 13:19
PROVIDERS: ADMIT Internal Medicine; ATTEND Internal Medicine
DX: R26.89 Other abnormalities of gait and mobility; R55 Syncope and collapse; S22.058A Other fracture of T5-T6 vertebra, initial encounter for closed fracture; Z91.81 History of falling; I25.10 Atherosclerotic heart disease of native coronary artery without angina pectoris; R06.02 Shortness of breath; R94.4 Abnormal results of kidney function studies; Y92.89 Other specified places as the place of occurrence of the external cause; M54.2 Cervicalgia; I10 Essential (primary) hypertension; R40.4 Transient alteration of awareness; J44.9 Chronic obstructive pulmonary disease, unspecified; N39.0 Urinary tract infection, site not specified; R53.1 Weakness; W18.39XA Other fall on same level, initial encounter; Z95.810 Presence of automatic (implantable) cardiac defibrillator; M25.512 Pain in left shoulder; K21.9 Gastro-esophageal reflux disease without esophagitis; E11.65 Type 2 diabetes mellitus with hyperglycemia
CPT/HCPCS: 36415; 51701; 70450; 71010; 71045; 72072; 72125; 72128; 73030; 80053; 81001; 82550; 82553; 83735; 84132; 84484; 85025; 87086; 93005; 94760; 96365; 97110; 97163; 97166; 97530; 99284; A4222; G0378; J0360; J0696; J1650; J1815; J1885; J2405; J3475; J7030

== ENCOUNTER 2018-06-29 16:06 | Inpatient (IN) ==
[2018-06-29] MEDS ORDERED: NS 500 ML IV 500 ML IV ONE (16:37)
[2018-06-29] MEDS ORDERED: NS 1000 ML 1,000 ML ONE (16:39)
[2018-06-29 16:50] VITALS: BMI 19.5
[2018-06-29 17:09] LABS: BASOPHILS # (AUTO) 0.1 X10^3/uL (0.0-0.1); BASOPHILS % (AUTO) 0.7 % (0.2-1.0); HEMATOCRIT 42.4 % (36.0-47.0); HEMOGLOBIN 13.5 g/dL (12.0-16.0); LYMPHOCYTES # (AUTO) 1.2 X10^3/uL (1.3-2.9); LYMPHOCYTES % (AUTO) 8.8 % (21.0-51.0); MEAN CORPUSCULAR HEMOGLOBIN 26.7 pg (27.0-34.0); MEAN CORPUSCULAR HGB CONC 31.8 g/dL (33.0-35.0); MEAN CORPUSCULAR VOLUME 83.7 fL (80.0-100.0); MEAN PLATELET VOLUME 9.4 fL (7.4-11.0); MONOCYTES # (AUTO) 0.9 x10^3/uL (0.3-0.8); NEUTROPHILS # (AUTO) 11.2 x10^3/uL (2.2-4.8); NEUTROPHILS % (AUTO) 83.5 % (42.0-75.0); PLATELET COUNT 227 X10^3/uL (150.0-450.0); RED BLOOD COUNT 5.07 X10^6/uL (3.5-5.4); RED CELL DISTRIBUTION WIDTH 15.5 % (11.6-16.5); WHITE BLOOD COUNT 13.4 X10^3/uL (3.6-10.0)
[2018-06-29 17:20] LABS: BILIRUBIN,URINE NEGATIVE (NEGATIVE); BLOOD/HEMOGLOBIN,URINE 4+ (NEGATIVE); GLUCOSE, URINE 4+ (NEGATIVE); KETONES,URINE NEGATIVE (NEGATIVE); LEUKOCYTE ESTERASE ,URINE 3+ (NEGATIVE); NITRITES,URINE NEGATIVE (NEGATIVE); PROTEIN,URINE 2+ (NEGATIVE); UROBILINOGEN,URINE NORMAL (NORMAL)
[2018-06-29 17:24] LABS: APPEARANCE,URINE CLOUDY (CLEAR); COLOR,URINE PALE YELLOW (YELLOW)
[2018-06-29 17:25] LABS: BACTERIA,URINE 3+ /HPF (NEGATIVE); RBC,URINE TNTC /HPF (NONE SEEN); SQUAMOUS EPITHELIAL CELL,UR RARE /HPF (NEGATIVE)
[2018-06-29] MEDS: NS 1000 ML 1,000 ML IV SCH ×2 (17:25→21:45)
[2018-06-29 17:33] LABS: ALANINE AMINOTRANSFERASE 30 Units/L (12-78); ALBUMIN 3.5 g/dL (3.4-5.0); ALKALINE PHOSPHATASE 362 Units/L (46-116); ASPARTATE AMINO TRANSFERASE 15 Units/L (15-37); BLOOD UREA NITROGEN 76 mg/dL (7-18); CALCIUM 9.5 mg/dL (8.5-10.1); CARBON DIOXIDE 23.6 mmol/L (21-32); CHLORIDE 98 mmol/L (98-107); CREATININE 3.23 mg/dL (0.55-1.02); FREE T4 (FREE THYROXINE) 1.41 ng/dL (0.76-1.46); MAGNESIUM 2.6 mg/dL (1.7-2.9); SODIUM 135 mmol/L (136-145); TOTAL PROTEIN 8.5 g/dL (6.4-8.2); TSH (3RD GENERATION) 3.301 uIU/mL (0.358-3.74); eGFR NON BLACK RACES 14 (>60)
[2018-06-29 17:50] LABS: COR NA(FOR HYPERGLY) 155 mmol/L (136-145)
[2018-06-29] MEDS: HumuLIN R SUBCUT PRN ×2 (17:55→20:45)
[2018-06-29] MEDS: SNACK - Diabetic Appropriate PO SCH (20:13)
[2018-06-29] MEDS: ROCEPHIN VIAL 1 GRAM IVP SCH (20:13)
--- NOTE | 2018-06-29 22:50 | DR.H&P ---
H&P - History & Physical for Day of: H&P Date: 06/29/18 - Chief Complaint Chief Complaint: Elevated BS - History of Present Illness History of Present Illness: The patient is an 87 yo WF who is rehab resident at [facility]. Patient noted to have AMS. BS checked and was 900+. Bun and Cr elevated compared to baseline. Patient lethargic. Patient has been on oral antiglycemics. - Past Medical History Past Medical History: Arthritis, COPD, Diabetes, GERD, Hypertension - Past Surgical History Surgical History: Angioplasty/Stents, Hysterectomy, Other - Family History Family Medical History: Diabetes Mellitus, Hypertension - Social History Does patient currently use any type of tobacco product: No Have you used tobacco products in the last 12 months: No Type of Tobacco Use: None Does any household member use tobacco: No Alcohol Use: None Drug Use: Prescription Drugs - Medications Home Medications: acetaminophen Allergy (Verified 06/15/18 09:00) pyrilamine Allergy (Verified 06/15/18 09:00) - Review of Systems Constitutional: Malaise Eyes: No Symptoms Reported ENT: No Symptoms Reported Respiratory: No Symptoms Reported Cardiovascular: No Symptoms Reported Gastrointestinal: No Symptoms Reported Genitourinary: No Symptoms Reported Musculoskeletal: No Symptoms Reported Skin: No Symptoms Reported Neurological: Confusion - Physical Exam Vital Signs: Temperature 98.9 F Pulse Rate [Left Brachial] 82 Respiratory Rate 16 Blood Pressure [Right Arm] 124/81 Blood Pressure [Left Arm] 178/81 Blood Pressure 123/65 O2 Sat by Pulse Oximetry 100 Oriented: Unable to test (lethargic) Eyes: Normal Ear: Normal Nose: Normal Throat: Normal Respiratory: Clear Throughout Cardiovascular: Normal, Murmur : Other (dark thick urine initially.) Auscultation: Bowel Sounds: Normal Palpation: Normal Tenderness: Normal Skin: Decreased Turgur Musculoskeletal: Normal Psychiatric: Other Mood Description: Labile Affect: Quiet - Assessment/Plan (1) Hyperglycemia due to type 2 diabetes mellitus Status: Acute Plan: BS Protocol. (2) Acute kidney failure Status: Acute Plan: Monitor labs, Gentle hydration (3) UTI (urinary tract infection) Status: Acute (4) Altered mental state Qualifiers: Altered mental status type: somnolence Qualified Code(s): R40.0 - Somnolence Status: Acute Plan: Monitor BS, Neuro checks. - Allergies Allergies/Adverse Reactions: Allergies Allergy/AdvReac Type Severity Reaction Status Date / Time acetaminophen Allergy Verified 06/15/18 09:00 pyrilamine Allergy Verified 06/15/18 09:00
[2018-06-30] MEDS ORDERED: D50W ABBOJECT SYR IV ONE (06:01)
[2018-06-30] MEDS ORDERED: D50W ABBOJECT SYR ONE (06:04)
[2018-06-30 06:08] LABS: BASOPHILS % (AUTO) 0.3 % (0.2-1.0); EOSINOPHILS % (AUTO) 0.3 % (0.9-2.9); HEMATOCRIT 44.2 % (36.0-47.0); HEMOGLOBIN 14.5 g/dL (12.0-16.0); LYMPHOCYTES # (AUTO) 1.6 X10^3/uL (1.3-2.9); LYMPHOCYTES % (AUTO) 10.8 % (21.0-51.0); MEAN CORPUSCULAR HEMOGLOBIN 26.7 pg (27.0-34.0); MEAN CORPUSCULAR HGB CONC 32.7 g/dL (33.0-35.0); MEAN CORPUSCULAR VOLUME 81.4 fL (80.0-100.0); MEAN PLATELET VOLUME 9.4 fL (7.4-11.0); MONOCYTES # (AUTO) 1.1 x10^3/uL (0.3-0.8); MONOCYTES % (AUTO) 7.3 % (0.0-13.0); NEUTROPHILS # (AUTO) 12.4 x10^3/uL (2.2-4.8); NEUTROPHILS % (AUTO) 81.3 % (42.0-75.0); PLATELET COUNT 230 X10^3/uL (150.0-450.0); RED BLOOD COUNT 5.43 X10^6/uL (3.5-5.4); RED CELL DISTRIBUTION WIDTH 15.9 % (11.6-16.5); WHITE BLOOD COUNT 15.2 X10^3/uL (3.6-10.0)
[2018-06-30 06:26] LABS: ALANINE AMINOTRANSFERASE 30 Units/L (12-78); ALBUMIN 3.4 g/dL (3.4-5.0); ALKALINE PHOSPHATASE 339 Units/L (46-116); ASPARTATE AMINO TRANSFERASE 19 Units/L (15-37); BLOOD UREA NITROGEN 69 mg/dL (7-18); CALCIUM 9.6 mg/dL (8.5-10.1); CARBON DIOXIDE 27.3 mmol/L (21-32); CHLORIDE 114 mmol/L (98-107); CREATININE 2.33 mg/dL (0.55-1.02); TOTAL PROTEIN 8.4 g/dL (6.4-8.2); eGFR NON BLACK RACES 21 (>60)
[2018-06-30 06:40] LABS: SODIUM 152 mmol/L (136-145)
[2018-06-30] MEDS ORDERED: K-DUR TAB 20 MEQ ONE (07:33)
[2018-06-30] MEDS: K-DUR TAB 20 MEQ PO PRN (07:46)
[2018-06-30] MEDS: ROCEPHIN VIAL 1 GRAM IVP SCH (09:48)
[2018-06-30] MEDS ORDERED: PHARMACY CONSULT - DOSE _____ XX SCH (11:00)
[2018-06-30] MEDS ORDERED: NS 1/2 1000 ML IV 1,000 ML IV SCH (11:16)
[2018-06-30] MEDS: HumuLIN R SUBCUT PRN ×3 (11:18→20:18)
--- NOTE | 2018-06-30 11:43 | PCM.PROG ---
Progress Note - Progress Note for Day of Date of Exam: 06/30/18 - Subjective Subjective: The patient is an 87yo WF who was admitted to [facility] to marked hyperglycemia and dehydration. Patient is alert and drinking water this AM. States she was dehydrated. Denies any other complaints at present. - Past Medical Family Social History Past Med/Fam/Surg Hx: No changes since H&P Allergies: Allergies acetaminophen Allergy (Verified 06/15/18 09:00) pyrilamine Allergy (Verified 06/15/18 09:00) - Review of Systems ROS: No change since H&P - Vital Signs and I&O's Vital Signs: Temperature 97.5 F Pulse Rate [Left Brachial] 83 Respiratory Rate 19 Blood Pressure [Right Arm] 131/62 Blood Pressure [Left Arm] 131/62 Blood Pressure 123/65 O2 Sat by Pulse Oximetry 98 Intake and Output: Intake & Output 06/27/18 06/28/18 06/29/18 06/30/18 23:59 23:59 23:59 23:59 Intake Total 600 / 600 990 / 990 Output Total 150 / 150 270 / 270 Balance 450 / 450 720 / 720 - Physical Exam Oriented: Normal Eyes: Normal Ear: Normal Nose: Normal Throat: Normal Respiratory: Normal Cardiovascular: Normal, Murmur : Other ([place] with clear yellow urine) Auscultation: Bowel Sounds: Normal Palpation: Normal Tenderness: Normal Skin: Decreased [place]urgur Musculoskeletal: Normal Psychiatric: Other Mood Description: Labile Affect: Quiet Speech Pattern: Clear, Appropriate, Delayed - Laboratory and Diagnostics Result Diagrams: 06/30/18 05:10 06/30/18 06:15 Labs: 06/29/18 16:50 Urine,Catheterized Urine Culture - Preliminary Laboratory WBC 15.2 X10^3/uL (3.6-10.0) H 06/30/18 05:10 RBC 5.43 X10^6/uL (3.5-5.4) H 06/30/18 05:10 Hgb 14.5 g/dL (12.0-16.0) 06/30/18 05:10 Hct 44.2 % (36.0-47.0) 06/30/18 05:10 MCV 81.4 fL (80.0-100.0) 06/30/18 05:10 MCH 26.7 pg (27.0-34.0) L 06/30/18 05:10 MCHC 32.7 g/dL (33.0-35.0) L 06/30/18 05:10 RDW 15.9 % (11.6-16.5) 06/30/18 05:10 Plt Count 230 X10^3/uL (150.0-450.0) 06/30/18 05:10 MPV 9.4 fL (7.4-11.0) 06/30/18 05:10 Neut % (Auto) 81.3 % (42.0-75.0) H 06/30/18 05:10 Lymph % (Auto) 10.8 % (21.0-51.0) L 06/30/18 05:10 [place] % (Auto) 7.3 % (0.0-13.0) 06/30/18 05:10 Eos % (Auto) 0.3 % (0.9-2.9) L 06/30/18 05:10 Baso % (Auto) 0.3 % (0.2-1.0) 06/30/18 05:10 Neut # (Auto) 12.4 x10^3/uL (2.2-4.8) H 06/30/18 05:10 Lymph # (Auto) 1.6 X10^3/uL (1.3-2.9) 06/30/18 05:10 [place] # (Auto) 1.1 x10^3/uL (0.3-0.8) H 06/30/18 05:10 Eos # (Auto) 0.0 x10^3/uL (0.0-0.2) 06/30/18 05:10 Baso # (Auto) 0.0 X10^3/uL (0.0-0.1) 06/30/18 05:10 Absolute Nucleated RBC 0.0 /100WBC 06/30/18 05:10 Sodium 152 mmol/L (136-145) H* 06/30/18 05:10 Corrected Sodium TNP 06/30/18 05:10 Potassium 3.2 mmol/L (3.5-5.1) L 06/30/18 05:10 Chloride 114 mmol/L (98-107) H 06/30/18 05:10 Carbon Dioxide 27.3 mmol/L (21-32) 06/30/18 05:10 BUN 69 mg/dL (7-18) H 06/30/18 05:10 Creatinine 2.33 mg/dL (0.55-1.02) H 06/30/18 05:10 Est GFR (MDRD) Af Amer 25 (>60) L 06/30/18 05:10 Est GFR (MDRD) Non-Af 21 (>60) L 06/30/18 05:10 Glucose 306 mg/dL (65-99) H 06/30/18 06:15 POC Glucose (mg/dL) 432 mg/dL (65-99) H* 06/30/18 11:15 Calcium 9.6 mg/dL (8.5-10.1) 06/30/18 05:10 Corrected Calcium TNP 06/30/18 05:10 Magnesium 2.6 mg/dL (1.7-2.9) 06/29/18 16:44 Total Bilirubin 0.50 mg/dL (0.2-1.0) 06/30/18 05:10 AST 19 Units/L (15-37) 06/30/18 05:10 ALT 30 Units/L (12-78) 06/30/18 05:10 Alkaline Phosphatase 339 Units/L (46-116) H 06/30/18 05:10 Total Protein 8.4 g/dL (6.4-8.2) H 06/30/18 05:10 Albumin 3.4 g/dL (3.4-5.0) 06/30/18 05:10 Globulin 5.0 g/dL (2.5-4.5) H 06/30/18 05:10 Albumin/Globulin Ratio 0.7 Ratio (1.1-2.1) L 06/30/18 05:10 Free T4 1.41 ng/dL (0.76-1.46) 06/29/18 16:44 TSH 3rd Generation 3.301 uIU/mL (0.358-3.74) 06/29/18 16:44 Specimen Type Catherized urine 06/29/18 16:50 Urine Color Pale yellow (YELLOW) 06/29/18 16:50 Urine Appearance Cloudy (CLEAR) 06/29/18 16:50 Urine pH 5.0 (5.0 - 8.0) 06/29/18 16:50 Ur Specific [place] 1.015 (1.000-1.030) 06/29/18 16:50 Urine Protein 2+ (NEGATIVE) 06/29/18 16:50 Urine Glucose (UA) 4+ (NEGATIVE) 06/29/18 16:50 Urine Ketones Negative (NEGATIVE) 06/29/18 16:50 Urine Occult Blood 4+ (NEGATIVE) 06/29/18 16:50 Urine Nitrite Negative (NEGATIVE) 06/29/18 16:50 Urine Bilirubin Negative (NEGATIVE) 06/29/18 16:50 Urine Urobilinogen Normal (NORMAL) 06/29/18 16:50 Ur Leukocyte Esterase 3+ (NEGATIVE) 06/29/18 16:50 Urine RBC Tntc /HPF (NONE SEEN) 06/29/18 16:50 Urine WBC Tntc /HPF (NONE SEEN) 06/29/18 16:50 Ur Squamous Epith Cells Rare /HPF (NEGATIVE) 06/29/18 16:50 Urine Bacteria 3+ /HPF (NEGATIVE) 06/29/18 16:50 Ur Culture Indicated? Yes/culture set up 06/29/18 16:50 - Plan (1) Hyperglycemia due to type 2 diabetes mellitus Status: Acute Plan: BS Protocol. (2) Acute kidney failure Status: Acute Plan: Monitor labs, Gentle hydration (3) UTI (urinary tract infection) Status: Acute (4) Altered mental state Status: Acute Qualifiers: Altered mental status type: somnolence Qualified Code(s): R40.0 - Somnolence Plan: Monitor BS, Neuro checks.
[2018-06-30] MEDS ORDERED: NS 1/2 1000 ML IV 1,000 ML ONE (17:28)
[2018-06-30] MEDS ORDERED: NS 1000 ML 1,000 ML IV SCH (19:00)
[2018-06-30] MEDS: SNACK - Diabetic Appropriate PO SCH (23:57)
[2018-06-30] MEDS: NS 1/2 1000 ML IV 1,000 ML IV SCH (23:57)
[2018-07-01 06:23] LABS: BASOPHILS % (AUTO) 0.4 % (0.2-1.0); EOSINOPHILS # (AUTO) 0.1 x10^3/uL (0.0-0.2); EOSINOPHILS % (AUTO) 1.2 % (0.9-2.9); HEMATOCRIT 38.2 % (36.0-47.0); HEMOGLOBIN 12.4 g/dL (12.0-16.0); LYMPHOCYTES # (AUTO) 1.3 X10^3/uL (1.3-2.9); LYMPHOCYTES % (AUTO) 13.7 % (21.0-51.0); MEAN CORPUSCULAR HEMOGLOBIN 26.7 pg (27.0-34.0); MEAN CORPUSCULAR HGB CONC 32.4 g/dL (33.0-35.0); MEAN CORPUSCULAR VOLUME 82.5 fL (80.0-100.0); MEAN PLATELET VOLUME 9.5 fL (7.4-11.0); MONOCYTES # (AUTO) 0.6 x10^3/uL (0.3-0.8); MONOCYTES % (AUTO) 6.1 % (0.0-13.0); NEUTROPHILS # (AUTO) 7.5 x10^3/uL (2.2-4.8); NEUTROPHILS % (AUTO) 78.6 % (42.0-75.0); PLATELET COUNT 140 X10^3/uL (150.0-450.0); RED BLOOD COUNT 4.63 X10^6/uL (3.5-5.4); WHITE BLOOD COUNT 9.5 X10^3/uL (3.6-10.0)
[2018-07-01 06:44] LABS: CALCIUM 8.5 mg/dL (8.5-10.1); CARBON DIOXIDE 28.5 mmol/L (21-32); CREATININE 1.36 mg/dL (0.55-1.02)
[2018-07-01 06:45] LABS: ALBUMIN 2.4 g/dL (3.4-5.0); COR CA(FOR HYPOALB) 9.8 mg/dL (8.5-10.1); TOTAL PROTEIN 6.4 g/dL (6.4-8.2)
[2018-07-01] MEDS: ROCEPHIN VIAL 1 GRAM IVP SCH (08:30)
[2018-07-01] MEDS: LOVENOX INJ 30 MG SYR SC SCH (08:30)
[2018-07-01] MEDS ORDERED: ULTRAM PO PRN (08:43)
[2018-07-01] MEDS: PLAVIX PO SCH (09:41)
[2018-07-01] MEDS: SYNTHROID 50 mcg TAB PO SCH (09:41)
[2018-07-01] MEDS: NexIUM PO SCH (09:41)
[2018-07-01] MEDS: PROzac PO SCH (09:41)
[2018-07-01] MEDS: NAMENDA TAB 10 MG PO SCH (09:41)
[2018-07-01] MEDS: CATAPRES TAB 0.1 MG PO PRN (09:41)
[2018-07-01] MEDS: WELCHOL PO SCH ×2 (09:41→21:27)
[2018-07-01] MEDS ORDERED: NS 1/2 1000 ML IV 1,000 ML ONE (11:47)
[2018-07-01] MEDS: NS 1/2 1000 ML IV 1,000 ML IV SCH (11:49)
[2018-07-01] MEDS: HumuLIN R SUBCUT PRN ×3 (11:49→21:27)
--- NOTE | 2018-07-01 12:21 | PCM.PROG ---
Progress Note - Progress Note for Day of Date of Exam: 07/01/18 - Subjective Subjective: The patient is an 87yo WF who [facility]. Patient is alert with son present. Has had marked improvement is lethargy. BP noted to be elevated. Son states she was previously on BP meds. Did discuss mcc placement options. Denies any other complaints at present. - Past Medical Family Social History Past Med/Fam/Surg Hx: No changes since H&P Allergies: Allergies acetaminophen Allergy (Verified 06/15/18 09:00) pyrilamine Allergy (Verified 06/15/18 09:00) - Review of Systems ROS: No change since H&P - Vital Signs and I&O's Vital Signs: Temperature 99.0 F Pulse Rate [Left Brachial] 66 Respiratory Rate 22 Blood Pressure [Right Arm] 131/62 Blood Pressure [Left Arm] 114/55 Blood Pressure 123/65 O2 Sat by Pulse Oximetry 100 Intake and Output: Intake & Output 06/28/18 06/29/18 06/30/18 07/01/18 23:59 23:59 23:59 23:59 Intake Total 600 / 600 3555 / 3555 880 / 880 Output Total 150 / 150 1420 / 1420 700 / 700 Balance 450 / 450 2135 / 2135 180 / 180 - Physical Exam Oriented: Normal Eyes: Normal Ear: Normal Nose: Normal Throat: Normal Respiratory: Normal Cardiovascular: Normal, Murmur : Other ([place] with clear yellow urine) Auscultation: Bowel Sounds: Normal Palpation: Normal Tenderness: Normal Skin: Decreased [place]urgur Musculoskeletal: Normal Psychiatric: Other Mood Description: Labile Affect: Quiet Speech Pattern: Clear, Appropriate - Laboratory and Diagnostics Result Diagrams: 07/01/18 05:47 07/01/18 11:25 Labs: 06/29/18 16:44 Blood Blood Culture - Preliminary 06/29/18 16:57 Blood Blood Culture - Preliminary 06/29/18 16:50 Urine,Catheterized Urine Culture - Final Laboratory WBC 9.5 X10^3/uL (3.6-10.0) 07/01/18 05:47 RBC 4.63 X10^6/uL (3.5-5.4) 07/01/18 05:47 Hgb 12.4 g/dL (12.0-16.0) D 07/01/18 05:47 Hct 38.2 % (36.0-47.0) 07/01/18 05:47 MCV 82.5 fL (80.0-100.0) 07/01/18 05:47 MCH 26.7 pg (27.0-34.0) L 07/01/18 05:47 MCHC 32.4 g/dL (33.0-35.0) L 07/01/18 05:47 RDW 16.0 % (11.6-16.5) 07/01/18 05:47 Plt Count 140 X10^3/uL (150.0-450.0) L 07/01/18 05:47 MPV 9.5 fL (7.4-11.0) 07/01/18 05:47 Neut % (Auto) 78.6 % (42.0-75.0) H 07/01/18 05:47 Lymph % (Auto) 13.7 % (21.0-51.0) L 07/01/18 05:47 [place] % (Auto) 6.1 % (0.0-13.0) 07/01/18 05:47 Eos % (Auto) 1.2 % (0.9-2.9) 07/01/18 05:47 Baso % (Auto) 0.4 % (0.2-1.0) 07/01/18 05:47 Neut # (Auto) 7.5 x10^3/uL (2.2-4.8) H 07/01/18 05:47 Lymph # (Auto) 1.3 X10^3/uL (1.3-2.9) 07/01/18 05:47 [place] # (Auto) 0.6 x10^3/uL (0.3-0.8) 07/01/18 05:47 Eos # (Auto) 0.1 x10^3/uL (0.0-0.2) 07/01/18 05:47 Baso # (Auto) 0.0 X10^3/uL (0.0-0.1) 07/01/18 05:47 Absolute Nucleated RBC 0.0 /100WBC 07/01/18 05:47 Sodium 143 mmol/L (136-145) 07/01/18 05:47 Corrected Sodium 146 mmol/L (136-145) H 07/01/18 05:47 Potassium 4.2 mmol/L (3.5-5.1) 07/01/18 05:47 Chloride 109 mmol/L (98-107) H 07/01/18 05:47 Carbon Dioxide 28.5 mmol/L (21-32) 07/01/18 05:47 BUN 31 mg/dL (7-18) H 07/01/18 05:47 Creatinine 1.36 mg/dL (0.55-1.02) H 07/01/18 05:47 Est GFR (MDRD) Af Amer 47 (>60) L 07/01/18 05:47 Est GFR (MDRD) Non-Af 39 (>60) L 07/01/18 05:47 Glucose 413 mg/dL (65-99) H 07/01/18 11:25 POC Glucose (mg/dL) 430 mg/dL (65-99) H* 07/01/18 11:14 Calcium 8.5 mg/dL (8.5-10.1) 07/01/18 05:47 Corrected Calcium 9.8 mg/dL (8.5-10.1) 07/01/18 05:47 Magnesium 2.0 mg/dL (1.7-2.9) 07/01/18 05:47 Total Bilirubin 0.60 mg/dL (0.2-1.0) 07/01/18 05:47 AST 108 Units/L (15-37) H 07/01/18 05:47 ALT 83 Units/L (12-78) H 07/01/18 05:47 Alkaline Phosphatase 294 Units/L (46-116) H 07/01/18 05:47 Total Protein 6.4 g/dL (6.4-8.2) 07/01/18 05:47 Albumin 2.4 g/dL (3.4-5.0) L 07/01/18 05:47 Globulin 4.0 g/dL (2.5-4.5) 07/01/18 05:47 Albumin/Globulin Ratio 0.6 Ratio (1.1-2.1) L 07/01/18 05:47 Free T4 1.41 ng/dL (0.76-1.46) 06/29/18 16:44 TSH 3rd Generation 3.301 uIU/mL (0.358-3.74) 06/29/18 16:44 Specimen Type Catherized urine 06/29/18 16:50 Urine Color Pale yellow (YELLOW) 06/29/18 16:50 Urine Appearance Cloudy (CLEAR) 06/29/18 16:50 Urine pH 5.0 (5.0 - 8.0) 06/29/18 16:50 Ur Specific [place] 1.015 (1.000-1.030) 06/29/18 16:50 Urine Protein 2+ (NEGATIVE) 06/29/18 16:50 Urine Glucose (UA) 4+ (NEGATIVE) 06/29/18 16:50 Urine Ketones Negative (NEGATIVE) 06/29/18 16:50 Urine Occult Blood 4+ (NEGATIVE) 06/29/18 16:50 Urine Nitrite Negative (NEGATIVE) 06/29/18 16:50 Urine Bilirubin Negative (NEGATIVE) 06/29/18 16:50 Urine Urobilinogen Normal (NORMAL) 06/29/18 16:50 Ur Leukocyte Esterase 3+ (NEGATIVE) 06/29/18 16:50 Urine RBC Tntc /HPF (NONE SEEN) 06/29/18 16:50 Urine WBC Tntc /HPF (NONE SEEN) 06/29/18 16:50 Ur Squamous Epith Cells Rare /HPF (NEGATIVE) 06/29/18 16:50 Urine Bacteria 3+ /HPF (NEGATIVE) 06/29/18 16:50 Ur Culture Indicated? Yes/culture set up 06/29/18 16:50 - Plan (1) Hyperglycemia due to type 2 diabetes mellitus Status: Acute Plan: BS Protocol. (2) Acute kidney failure Status: Acute Plan: Monitor labs, Gentle hydration (3) UTI (urinary tract infection) Status: Acute (4) Altered mental state Status: Acute Qualifiers: Altered mental status type: somnolence Qualified Code(s): R40.0 - Somnolence Plan: Monitor BS, Neuro checks. (5) Hypernatremia Status: Acute Plan: Labs, 1/2NS at 50ml/hr
[2018-07-01] MEDS: LIPITOR TAB 40 MG PO SCH (21:26)
[2018-07-01] MEDS: SINEquan PO SCH (21:26)
[2018-07-01] MEDS: SNACK - Diabetic Appropriate PO SCH (21:26)
[2018-07-02] MEDS ORDERED: NS 1/2 1000 ML IV 1,000 ML ONE (05:59)
[2018-07-02 06:22] LABS: BASOPHILS % (AUTO) 0.3 % (0.2-1.0); EOSINOPHILS # (AUTO) 0.3 x10^3/uL (0.0-0.2); EOSINOPHILS % (AUTO) 3.6 % (0.9-2.9); HEMATOCRIT 36.4 % (36.0-47.0); HEMOGLOBIN 11.9 g/dL (12.0-16.0); LYMPHOCYTES # (AUTO) 1.5 X10^3/uL (1.3-2.9); LYMPHOCYTES % (AUTO) 18.4 % (21.0-51.0); MEAN CORPUSCULAR HEMOGLOBIN 26.6 pg (27.0-34.0); MEAN CORPUSCULAR HGB CONC 32.8 g/dL (33.0-35.0); MEAN CORPUSCULAR VOLUME 81.1 fL (80.0-100.0); MEAN PLATELET VOLUME 9.4 fL (7.4-11.0); MONOCYTES # (AUTO) 0.6 x10^3/uL (0.3-0.8); MONOCYTES % (AUTO) 7.3 % (0.0-13.0); NEUTROPHILS # (AUTO) 5.7 x10^3/uL (2.2-4.8); NEUTROPHILS % (AUTO) 70.4 % (42.0-75.0); PLATELET COUNT 129 X10^3/uL (150.0-450.0); RED BLOOD COUNT 4.48 X10^6/uL (3.5-5.4); RED CELL DISTRIBUTION WIDTH 15.9 % (11.6-16.5); WHITE BLOOD COUNT 8.1 X10^3/uL (3.6-10.0)
[2018-07-02 06:54] LABS: ALBUMIN 2.4 g/dL (3.4-5.0); CALCIUM 8.7 mg/dL (8.5-10.1); CARBON DIOXIDE 29.2 mmol/L (21-32); CREATININE 1.13 mg/dL (0.55-1.02); TOTAL PROTEIN 6.4 g/dL (6.4-8.2)
[2018-07-02] MEDS: SYNTHROID 50 mcg TAB PO SCH (09:05)
[2018-07-02] MEDS: PLAVIX PO SCH (09:05)
[2018-07-02] MEDS: NexIUM PO SCH (09:05)
[2018-07-02] MEDS: JANUVIA PO SCH (09:05)
[2018-07-02] MEDS: WELCHOL PO SCH ×2 (09:05→20:08)
[2018-07-02] MEDS: ROCEPHIN VIAL 1 GRAM IVP SCH (09:05)
[2018-07-02] MEDS: LOVAZA PO SCH (09:06)
[2018-07-02] MEDS: LOVENOX INJ 30 MG SYR SC SCH (09:06)
[2018-07-02] MEDS: NAMENDA TAB 10 MG PO SCH (09:06)
[2018-07-02] MEDS: PROzac PO SCH (09:06)
[2018-07-02] MEDS: HumuLIN R SUBCUT PRN ×3 (11:44→20:14)
[2018-07-02] MEDS: NS 1/2 1000 ML IV 1,000 ML IV SCH ×2 (13:36→20:10)
[2018-07-02] MEDS: SINEquan PO SCH (20:08)
[2018-07-02] MEDS: CATAPRES TAB 0.1 MG PO PRN (20:08)
[2018-07-02] MEDS: LIPITOR TAB 40 MG PO SCH (20:09)
[2018-07-02] MEDS: COLACE CAP 100 MG PO SCH (20:09)
[2018-07-02] MEDS: SNACK - Diabetic Appropriate PO SCH (20:10)
[2018-07-02] MEDS: MILK OF MAGNESIA PO PRN (20:10)
[2018-07-03] MEDS ORDERED: NS 1/2 1000 ML IV 1,000 ML ONE ×3 (00:30→18:43)
[2018-07-03 05:29] LABS: BASOPHILS % (AUTO) 0.3 % (0.2-1.0); EOSINOPHILS # (AUTO) 0.3 x10^3/uL (0.0-0.2); EOSINOPHILS % (AUTO) 3.5 % (0.9-2.9); HEMATOCRIT 34.7 % (36.0-47.0); HEMOGLOBIN 11.2 g/dL (12.0-16.0); LYMPHOCYTES # (AUTO) 1.4 X10^3/uL (1.3-2.9); LYMPHOCYTES % (AUTO) 14.8 % (21.0-51.0); MEAN CORPUSCULAR HEMOGLOBIN 26.6 pg (27.0-34.0); MEAN CORPUSCULAR HGB CONC 32.4 g/dL (33.0-35.0); MEAN CORPUSCULAR VOLUME 82.1 fL (80.0-100.0); MEAN PLATELET VOLUME 9.8 fL (7.4-11.0); MONOCYTES # (AUTO) 0.8 x10^3/uL (0.3-0.8); MONOCYTES % (AUTO) 8.3 % (0.0-13.0); NEUTROPHILS # (AUTO) 6.8 x10^3/uL (2.2-4.8); NEUTROPHILS % (AUTO) 73.1 % (42.0-75.0); PLATELET COUNT 132 X10^3/uL (150.0-450.0); RED BLOOD COUNT 4.23 X10^6/uL (3.5-5.4); RED CELL DISTRIBUTION WIDTH 15.5 % (11.6-16.5); WHITE BLOOD COUNT 9.3 X10^3/uL (3.6-10.0)
[2018-07-03] MEDS: HumuLIN R SUBCUT PRN ×4 (05:42→20:49)
[2018-07-03 05:54] LABS: ALBUMIN 2.2 g/dL (3.4-5.0); CALCIUM 8.5 mg/dL (8.5-10.1); CARBON DIOXIDE 31.4 mmol/L (21-32); COR CA(FOR HYPOALB) 9.9 mg/dL (8.5-10.1); CREATININE 1.13 mg/dL (0.55-1.02)
[2018-07-03] MEDS: ROCEPHIN VIAL 1 GRAM IVP SCH (08:45)
[2018-07-03] MEDS: LOVENOX INJ 30 MG SYR SC SCH (08:45)
[2018-07-03] MEDS: PLAVIX PO SCH (08:46)
[2018-07-03] MEDS: PROzac PO SCH (08:46)
[2018-07-03] MEDS: JANUVIA PO SCH (08:46)
[2018-07-03] MEDS: NAMENDA TAB 10 MG PO SCH (08:46)
[2018-07-03] MEDS: SYNTHROID 50 mcg TAB PO SCH (08:46)
[2018-07-03] MEDS: WELCHOL PO SCH ×2 (08:46→20:49)
[2018-07-03] MEDS: NexIUM PO SCH (08:46)
[2018-07-03] MEDS: LOVAZA PO SCH (08:47)
[2018-07-03] MEDS: K-DUR TAB 20 MEQ PO PRN (08:47)
[2018-07-03] MEDS: NS 1/2 1000 ML IV 1,000 ML IV SCH ×3 (13:16→18:44)
[2018-07-03] MEDS: CATAPRES TAB 0.1 MG PO PRN (18:44)
[2018-07-03] MEDS: SINEquan PO SCH (20:48)
[2018-07-03] MEDS: LIPITOR TAB 40 MG PO SCH (20:48)
[2018-07-03] MEDS: COLACE CAP 100 MG PO SCH (20:48)
[2018-07-03] MEDS: SNACK - Diabetic Appropriate PO SCH (20:48)
[2018-07-03] MEDS: MILK OF MAGNESIA PO PRN (20:50)
[2018-07-04] MEDS: NS 1/2 1000 ML IV 1,000 ML IV SCH ×3 (02:04→16:43)
[2018-07-04 05:20] LABS: BASOPHILS % (AUTO) 0.5 % (0.2-1.0); EOSINOPHILS # (AUTO) 0.3 x10^3/uL (0.0-0.2); HEMATOCRIT 34.8 % (36.0-47.0); HEMOGLOBIN 11.4 g/dL (12.0-16.0); LYMPHOCYTES # (AUTO) 1.2 X10^3/uL (1.3-2.9); LYMPHOCYTES % (AUTO) 18.6 % (21.0-51.0); MEAN CORPUSCULAR HEMOGLOBIN 26.6 pg (27.0-34.0); MEAN CORPUSCULAR HGB CONC 32.8 g/dL (33.0-35.0); MEAN CORPUSCULAR VOLUME 81.2 fL (80.0-100.0); MEAN PLATELET VOLUME 9.7 fL (7.4-11.0); MONOCYTES # (AUTO) 0.7 x10^3/uL (0.3-0.8); MONOCYTES % (AUTO) 10.2 % (0.0-13.0); NEUTROPHILS # (AUTO) 4.3 x10^3/uL (2.2-4.8); NEUTROPHILS % (AUTO) 66.7 % (42.0-75.0); PLATELET COUNT 140 X10^3/uL (150.0-450.0); RED BLOOD COUNT 4.29 X10^6/uL (3.5-5.4); RED CELL DISTRIBUTION WIDTH 15.6 % (11.6-16.5); WHITE BLOOD COUNT 6.5 X10^3/uL (3.6-10.0)
[2018-07-04 05:30] LABS: ALANINE AMINOTRANSFERASE 35 Units/L (12-78); ALBUMIN 2.2 g/dL (3.4-5.0); ALKALINE PHOSPHATASE 261 Units/L (46-116); ASPARTATE AMINO TRANSFERASE 28 Units/L (15-37); BLOOD UREA NITROGEN 13 mg/dL (7-18); CALCIUM 8.5 mg/dL (8.5-10.1); CARBON DIOXIDE 30.7 mmol/L (21-32); CHLORIDE 105 mmol/L (98-107); COR CA(FOR HYPOALB) 9.9 mg/dL (8.5-10.1); COR NA(FOR HYPERGLY) 140 mmol/L (136-145); CREATININE 1.06 mg/dL (0.55-1.02); SODIUM 140 mmol/L (136-145); TOTAL PROTEIN 6.1 g/dL (6.4-8.2); eGFR NON BLACK RACES 52 (>60)
[2018-07-04] MEDS: WELCHOL PO SCH ×2 (08:55→20:45)
[2018-07-04] MEDS: NexIUM PO SCH (08:55)
[2018-07-04] MEDS: ROCEPHIN VIAL 1 GRAM IVP SCH (08:55)
[2018-07-04] MEDS: NAMENDA TAB 10 MG PO SCH (08:56)
[2018-07-04] MEDS: SYNTHROID 50 mcg TAB PO SCH (08:56)
[2018-07-04] MEDS: JANUVIA PO SCH (08:56)
[2018-07-04] MEDS: PLAVIX PO SCH (08:56)
[2018-07-04] MEDS: LOVENOX INJ 30 MG SYR SC SCH (08:57)
[2018-07-04] MEDS: PROzac PO SCH (08:57)
[2018-07-04] MEDS: LOVAZA PO SCH (08:57)
[2018-07-04] MEDS: HumuLIN R SUBCUT PRN ×3 (12:54→20:45)
[2018-07-04] MEDS: MILK OF MAGNESIA PO PRN ×2 (13:36→20:46)
[2018-07-04] MEDS ORDERED: NS 1/2 1000 ML IV 1,000 ML ONE (16:24)
[2018-07-04] MEDS: LIPITOR TAB 40 MG PO SCH (20:44)
[2018-07-04] MEDS: SNACK - Diabetic Appropriate PO SCH (20:44)
[2018-07-04] MEDS: COLACE CAP 100 MG PO SCH (20:44)
[2018-07-04] MEDS: SINEquan PO SCH (20:45)
[2018-07-05] MEDS: NS 1/2 1000 ML IV 1,000 ML IV SCH (05:02)
[2018-07-05] MEDS: HumuLIN R SUBCUT PRN ×3 (05:49→20:14)
[2018-07-05 05:58] LABS: BASOPHILS % (AUTO) 0.3 % (0.2-1.0); EOSINOPHILS # (AUTO) 0.2 x10^3/uL (0.0-0.2); EOSINOPHILS % (AUTO) 2.7 % (0.9-2.9); HEMATOCRIT 36.5 % (36.0-47.0); LYMPHOCYTES # (AUTO) 1.4 X10^3/uL (1.3-2.9); LYMPHOCYTES % (AUTO) 17.5 % (21.0-51.0); MEAN CORPUSCULAR HEMOGLOBIN 27.1 pg (27.0-34.0); MEAN PLATELET VOLUME 9.7 fL (7.4-11.0); MONOCYTES # (AUTO) 0.8 x10^3/uL (0.3-0.8); MONOCYTES % (AUTO) 10.1 % (0.0-13.0); NEUTROPHILS # (AUTO) 5.5 x10^3/uL (2.2-4.8); NEUTROPHILS % (AUTO) 69.4 % (42.0-75.0); PLATELET COUNT 164 X10^3/uL (150.0-450.0); RED BLOOD COUNT 4.45 X10^6/uL (3.5-5.4); RED CELL DISTRIBUTION WIDTH 15.3 % (11.6-16.5); WHITE BLOOD COUNT 7.9 X10^3/uL (3.6-10.0)
[2018-07-05 06:04] LABS: ALANINE AMINOTRANSFERASE 31 Units/L (12-78); ALBUMIN 2.4 g/dL (3.4-5.0); ALKALINE PHOSPHATASE 268 Units/L (46-116); ASPARTATE AMINO TRANSFERASE 24 Units/L (15-37); BLOOD UREA NITROGEN 9 mg/dL (7-18); CALCIUM 8.6 mg/dL (8.5-10.1); CARBON DIOXIDE 32.3 mmol/L (21-32); CHLORIDE 102 mmol/L (98-107); COR CA(FOR HYPOALB) 9.9 mg/dL (8.5-10.1); COR NA(FOR HYPERGLY) 140 mmol/L (136-145); CREATININE 0.91 mg/dL (0.55-1.02); SODIUM 137 mmol/L (136-145); TOTAL PROTEIN 6.7 g/dL (6.4-8.2); eGFR NON BLACK RACES > 60 (>60)
[2018-07-05] MEDS: WELCHOL PO SCH ×2 (08:27→21:41)
[2018-07-05] MEDS: NexIUM PO SCH (08:27)
[2018-07-05] MEDS: LOVAZA PO SCH (08:27)
[2018-07-05] MEDS: NAMENDA TAB 10 MG PO SCH (08:27)
[2018-07-05] MEDS: SYNTHROID 50 mcg TAB PO SCH (08:27)
[2018-07-05] MEDS: JANUVIA PO SCH (08:27)
[2018-07-05] MEDS: PROzac PO SCH (08:28)
[2018-07-05] MEDS: ROCEPHIN VIAL 1 GRAM IVP SCH (08:28)
[2018-07-05] MEDS: PLAVIX PO SCH (08:28)
[2018-07-05] MEDS: LOVENOX INJ 30 MG SYR SC SCH (08:28)
--- NOTE | 2018-07-05 09:21 | RAD ---
HISTORY: Shortness of breath, diabetes, COPD Study: Single-view chest Comparison: 06/18/2018. Findings: Right-sided pacemaker is present with intact leads. Trachea is midline. Heart size is normal. There is atherosclerotic calcification of the aortic arch. There is hyperinflation of the lungs without infiltrate, CHF, pleural fluid or pneumothorax. Osseous structures displayed no acute abnormality. IMPRESSION: Hyperinflation of the lungs without acute abnormality. Reported By:
[2018-07-05] MEDS: NORVASC TAB 10 MG PO SCH (10:34)
[2018-07-05] MEDS ORDERED: BUTT CREAM (COMPOUND) ONE (11:59)
[2018-07-05] MEDS ORDERED: BUTT CREAM (COMPOUND) TOP PRN (12:40)
[2018-07-05] MEDS: COLACE CAP 100 MG PO SCH (20:12)
[2018-07-05] MEDS: SNACK - Diabetic Appropriate PO SCH (20:12)
[2018-07-05] MEDS: SINEquan PO SCH (20:13)
[2018-07-05] MEDS: LIPITOR TAB 40 MG PO SCH (20:13)
[2018-07-06 05:25] LABS: BASOPHILS % (AUTO) 0.3 % (0.2-1.0); EOSINOPHILS # (AUTO) 0.2 x10^3/uL (0.0-0.2); EOSINOPHILS % (AUTO) 2.1 % (0.9-2.9); HEMOGLOBIN 13.2 g/dL (12.0-16.0); LYMPHOCYTES # (AUTO) 1.2 X10^3/uL (1.3-2.9); LYMPHOCYTES % (AUTO) 15.5 % (21.0-51.0); MEAN CORPUSCULAR HEMOGLOBIN 27.5 pg (27.0-34.0); MEAN CORPUSCULAR HGB CONC 33.8 g/dL (33.0-35.0); MEAN CORPUSCULAR VOLUME 81.2 fL (80.0-100.0); MEAN PLATELET VOLUME 9.8 fL (7.4-11.0); MONOCYTES # (AUTO) 0.8 x10^3/uL (0.3-0.8); MONOCYTES % (AUTO) 9.5 % (0.0-13.0); NEUTROPHILS # (AUTO) 5.8 x10^3/uL (2.2-4.8); NEUTROPHILS % (AUTO) 72.6 % (42.0-75.0); PLATELET COUNT 186 X10^3/uL (150.0-450.0); RED CELL DISTRIBUTION WIDTH 15.5 % (11.6-16.5); WHITE BLOOD COUNT 7.9 X10^3/uL (3.6-10.0)
[2018-07-06 05:32] LABS: ALANINE AMINOTRANSFERASE 32 Units/L (12-78); ALBUMIN 2.7 g/dL (3.4-5.0); ALKALINE PHOSPHATASE 295 Units/L (46-116); ASPARTATE AMINO TRANSFERASE 28 Units/L (15-37); BLOOD UREA NITROGEN 9 mg/dL (7-18); CALCIUM 8.9 mg/dL (8.5-10.1); CARBON DIOXIDE 30.6 mmol/L (21-32); CHLORIDE 103 mmol/L (98-107); COR CA(FOR HYPOALB) 9.9 mg/dL (8.5-10.1); COR NA(FOR HYPERGLY) 141 mmol/L (136-145); CREATININE 0.98 mg/dL (0.55-1.02); SODIUM 139 mmol/L (136-145); TOTAL PROTEIN 7.2 g/dL (6.4-8.2); eGFR NON BLACK RACES 57 (>60)
[2018-07-06] MEDS ORDERED: KLOR-CON PO PRN (05:40)
[2018-07-06] MEDS ORDERED: K-DUR TAB 20 MEQ PO PRN (05:40)
[2018-07-06] MEDS: K-DUR TAB 20 MEQ PO PRN (05:56)
[2018-07-06] MEDS: HumuLIN R SUBCUT PRN ×4 (05:56→20:39)
[2018-07-06] MEDS: LOVAZA PO SCH (09:01)
[2018-07-06] MEDS: ROCEPHIN VIAL 1 GRAM IVP SCH ×2 (09:01→09:15)
[2018-07-06] MEDS: NORVASC TAB 10 MG PO SCH (09:02)
[2018-07-06] MEDS: WELCHOL PO SCH ×2 (09:02→21:51)
[2018-07-06] MEDS: JANUVIA PO SCH (09:02)
[2018-07-06] MEDS: NexIUM PO SCH (09:03)
[2018-07-06] MEDS: SYNTHROID 50 mcg TAB PO SCH (09:03)
[2018-07-06] MEDS: PROzac PO SCH (09:03)
[2018-07-06] MEDS: LOVENOX INJ 30 MG SYR SC SCH (09:03)
[2018-07-06] MEDS: PLAVIX PO SCH (09:05)
[2018-07-06] MEDS ORDERED: TORADOL 15 MG VIAL IVP NR (10:00)
[2018-07-06] MEDS: NAMENDA TAB 10 MG PO SCH (10:06)
[2018-07-06] MEDS: ULTRAM PO SCH ×2 (10:27→20:37)
--- NOTE | 2018-07-06 11:28 | PCM.PROG ---
Progress Note - Progress Note for Day of Date of Exam: 07/03/18 - Subjective Subjective: is an 87yo WF who was admitted due to renal failure, hyperglycemia, and dehydration. Patient is alert and oriented today with son present. She reports weakness today. On examination, heart is regular in rate and rhythm. Bilateral lungs are noted with diminished lung sounds throughout. Abdomen is round, soft, and non-tender with normal bowel sounds noted in all quadrants. Her vitals this morning are 97.7-73-16-100%-123/60. Labs were obtained. Abnormal lab values include the following: HGB 11.2, HCT 34.7, PLT COUNT 132, CREATININE 1.13, GLUCOSE 153, ALK PHOS 247, TOTAL PROTEIN 6.0, ALBUMIN 2.2. She is currently receiving IV rocephin for UTI, Humulin R sliding scale for blood glucose control, and her home medications have been resumed. has discussed correction placement with patient. We will continue with current plan of care today. Otherwise, we will follow up with AM labs and continue to monitor. - Past Medical Family Social History Past Med/Fam/Surg Hx: No changes since H&P Allergies: Allergies acetaminophen Allergy (Verified 06/15/18 09:00) pyrilamine Allergy (Verified 06/15/18 09:00) - Review of Systems ROS: No change since H&P - Vital Signs and I&O's Vital Signs: Temperature 98.4 F Pulse Rate [Left Brachial] 77 Respiratory Rate 18 Blood Pressure [Right Arm] 131/62 Blood Pressure [Left Arm] 183/84 Blood Pressure 123/65 O2 Sat by Pulse Oximetry 97 Intake and Output: Intake & Output 07/03/18 07/04/18 07/05/18 07/06/18 11:59 11:59 11:59 11:59 Intake Total 2013 2236 / 2236 2776 / 2776 1410 / 1410 Output Total 4425 / 4425 2750 / 2750 4400 / 4400 2750 / 2750 Balance -2411 / -2411 -514 / -514 -1624 / -1624 -1340 / -1340 - Physical Exam Oriented: Normal Eyes: Normal Ear: Normal Nose: Normal Throat: Normal Respiratory: Normal Cardiovascular: Normal, Murmur : Other ([place] with clear yellow urine) Auscultation: Bowel Sounds: Normal Palpation: Normal Tenderness: Normal Skin: Decreased [place]urg[place] Musculoskeletal: Normal Psychiatric: Other Mood Description: Labile Affect: Quiet Speech Pattern: Clear, Appropriate - Laboratory and Diagnostics Result Diagrams: 07/06/18 04:13 07/06/18 04:13 Labs: 06/29/18 16:57 Blood Blood Culture - Final 06/29/18 16:44 Blood Blood Culture - Final 06/29/18 16:50 Urine,Catheterized Urine Culture - Final Laboratory WBC 7.9 X10^3/uL (3.6-10.0) 07/06/18 04:13 RBC 4.80 X10^6/uL (3.5-5.4) 07/06/18 04:13 Hgb 13.2 g/dL (12.0-16.0) 07/06/18 04:13 Hct 39.0 % (36.0-47.0) 07/06/18 04:13 MCV 81.2 fL (80.0-100.0) 07/06/18 04:13 MCH 27.5 pg (27.0-34.0) 07/06/18 04:13 MCHC 33.8 g/dL (33.0-35.0) 07/06/18 04:13 RDW 15.5 % (11.6-16.5) 07/06/18 04:13 Plt Count 186 X10^3/uL (150.0-450.0) 07/06/18 04:13 MPV 9.8 fL (7.4-11.0) 07/06/18 04:13 Neut % (Auto) 72.6 % (42.0-75.0) 07/06/18 04:13 Lymph % (Auto) 15.5 % (21.0-51.0) L 07/06/18 04:13 [place] % (Auto) 9.5 % (0.0-13.0) 07/06/18 04:13 Eos % (Auto) 2.1 % (0.9-2.9) 07/06/18 04:13 Baso % (Auto) 0.3 % (0.2-1.0) 07/06/18 04:13 Neut # (Auto) 5.8 x10^3/uL (2.2-4.8) H 07/06/18 04:13 Lymph # (Auto) 1.2 X10^3/uL (1.3-2.9) L 07/06/18 04:13 [place] # (Auto) 0.8 x10^3/uL (0.3-0.8) 07/06/18 04:13 Eos # (Auto) 0.2 x10^3/uL (0.0-0.2) 07/06/18 04:13 Baso # (Auto) 0.0 X10^3/uL (0.0-0.1) 07/06/18 04:13 Absolute Nucleated RBC 0.1 /100WBC 07/06/18 04:13 Sodium 139 mmol/L (136-145) 07/06/18 04:13 Corrected Sodium 141 mmol/L (136-145) 07/06/18 04:13 Potassium 3.7 mmol/L (3.5-5.1) 07/06/18 04:13 Chloride 103 mmol/L (98-107) 07/06/18 04:13 Carbon Dioxide 30.6 mmol/L (21-32) 07/06/18 04:13 BUN 9 mg/dL (7-18) 07/06/18 04:13 Creatinine 0.98 mg/dL (0.55-1.02) 07/06/18 04:13 Est GFR (MDRD) Af Amer > 60 (>60) 07/06/18 04:13 Est GFR (MDRD) Non-Af 57 (>60) L 07/06/18 04:13 Glucose 192 mg/dL (65-99) H 07/06/18 04:13 POC Glucose (mg/dL) 194 mg/dL (65-99) H 07/06/18 05:35 Calcium 8.9 mg/dL (8.5-10.1) 07/06/18 04:13 Corrected Calcium 9.9 mg/dL (8.5-10.1) 07/06/18 04:13 Magnesium 2.0 mg/dL (1.7-2.9) 07/03/18 05:15 Total Bilirubin 0.50 mg/dL (0.2-1.0) 07/06/18 04:13 AST 28 Units/L (15-37) 07/06/18 04:13 ALT 32 Units/L (12-78) 07/06/18 04:13 Alkaline Phosphatase 295 Units/L (46-116) H 07/06/18 04:13 Total Protein 7.2 g/dL (6.4-8.2) 07/06/18 04:13 Albumin 2.7 g/dL (3.4-5.0) L 07/06/18 04:13 Globulin 4.5 g/dL (2.5-4.5) 07/06/18 04:13 Albumin/Globulin Ratio 0.6 Ratio (1.1-2.1) L 07/06/18 04:13 Free T4 1.41 ng/dL (0.76-1.46) 06/29/18 16:44 TSH 3rd Generation 3.301 uIU/mL (0.358-3.74) 06/29/18 16:44 Specimen Type Catherized urine 06/29/18 16:50 Urine Color Pale yellow (YELLOW) 06/29/18 16:50 Urine Appearance Cloudy (CLEAR) 06/29/18 16:50 Urine pH 5.0 (5.0 - 8.0) 06/29/18 16:50 Ur Specific [place] 1.015 (1.000-1.030) 06/29/18 16:50 Urine Protein 2+ (NEGATIVE) 06/29/18 16:50 Urine Glucose (UA) 4+ (NEGATIVE) 06/29/18 16:50 Urine Ketones Negative (NEGATIVE) 06/29/18 16:50 Urine Occult Blood 4+ (NEGATIVE) 06/29/18 16:50 Urine Nitrite Negative (NEGATIVE) 06/29/18 16:50 Urine Bilirubin Negative (NEGATIVE) 06/29/18 16:50 Urine Urobilinogen Normal (NORMAL) 06/29/18 16:50 Ur Leukocyte Esterase 3+ (NEGATIVE) 06/29/18 16:50 Urine RBC Tntc /HPF (NONE SEEN) 06/29/18 16:50 Urine WBC Tntc /HPF (NONE SEEN) 06/29/18 16:50 Ur Squamous Epith Cells Rare /HPF (NEGATIVE) 06/29/18 16:50 Urine Bacteria 3+ /HPF (NEGATIVE) 06/29/18 16:50 Ur Culture Indicated? Yes/culture set up 06/29/18 16:50
[2018-07-06] MEDS: ZESTRIL TAB 5 MG PO SCH (14:33)
[2018-07-06] MEDS: SNACK - Diabetic Appropriate PO SCH (20:36)
[2018-07-06] MEDS: COLACE CAP 100 MG PO SCH (20:36)
[2018-07-06] MEDS: LIPITOR TAB 40 MG PO SCH (20:37)
[2018-07-06] MEDS: SINEquan PO SCH (20:37)
[2018-07-07 05:21] LABS: BASOPHILS % (AUTO) 0.5 % (0.2-1.0); EOSINOPHILS # (AUTO) 0.2 x10^3/uL (0.0-0.2); EOSINOPHILS % (AUTO) 3.3 % (0.9-2.9); HEMATOCRIT 38.9 % (36.0-47.0); HEMOGLOBIN 12.9 g/dL (12.0-16.0); LYMPHOCYTES # (AUTO) 1.5 X10^3/uL (1.3-2.9); LYMPHOCYTES % (AUTO) 23.3 % (21.0-51.0); MEAN CORPUSCULAR HEMOGLOBIN 26.8 pg (27.0-34.0); MEAN CORPUSCULAR HGB CONC 33.3 g/dL (33.0-35.0); MEAN CORPUSCULAR VOLUME 80.4 fL (80.0-100.0); MONOCYTES # (AUTO) 0.7 x10^3/uL (0.3-0.8); NEUTROPHILS % (AUTO) 61.9 % (42.0-75.0); PLATELET COUNT 215 X10^3/uL (150.0-450.0); RED BLOOD COUNT 4.83 X10^6/uL (3.5-5.4); RED CELL DISTRIBUTION WIDTH 15.2 % (11.6-16.5); WHITE BLOOD COUNT 6.5 X10^3/uL (3.6-10.0)
[2018-07-07 05:33] LABS: ALANINE AMINOTRANSFERASE 31 Units/L (12-78); ALBUMIN 2.7 g/dL (3.4-5.0); ALKALINE PHOSPHATASE 297 Units/L (46-116); ASPARTATE AMINO TRANSFERASE 31 Units/L (15-37); BLOOD UREA NITROGEN 14 mg/dL (7-18); CALCIUM 9.2 mg/dL (8.5-10.1); CARBON DIOXIDE 30.7 mmol/L (21-32); CHLORIDE 104 mmol/L (98-107); COR CA(FOR HYPOALB) 10.2 mg/dL (8.5-10.1); CREATININE 1.06 mg/dL (0.55-1.02); SODIUM 140 mmol/L (136-145); TOTAL PROTEIN 7.2 g/dL (6.4-8.2); eGFR NON BLACK RACES 52 (>60)
[2018-07-07] MEDS: JANUVIA PO SCH (09:25)
[2018-07-07] MEDS: ULTRAM PO SCH (09:26)
[2018-07-07] MEDS: LOVAZA PO SCH (09:28)
[2018-07-07] MEDS: ZESTRIL TAB 5 MG PO SCH (09:28)
[2018-07-07] MEDS: LOVENOX INJ 30 MG SYR SC SCH (09:28)
[2018-07-07] MEDS: NexIUM PO SCH (09:29)
[2018-07-07] MEDS: NAMENDA TAB 10 MG PO SCH (09:29)
[2018-07-07] MEDS: PLAVIX PO SCH (09:30)
[2018-07-07] MEDS: NORVASC TAB 10 MG PO SCH (09:30)
[2018-07-07] MEDS: WELCHOL PO SCH (09:31)
[2018-07-07] MEDS: SYNTHROID 50 mcg TAB PO SCH (09:31)
[2018-07-07] MEDS: PROzac PO SCH (09:31)
[2018-07-07] MEDS: ROCEPHIN VIAL 1 GRAM IVP SCH (10:53)
[2018-07-07] MEDS: HumuLIN R SUBCUT PRN ×2 (12:05→16:40)
[2018-07-07 16:03] VITALS: BP 127/59
== END 2018-07-07 18:54 | disposition hospice, home (50) | DRG 683 ==
LOC: ICU 16:14
PROVIDERS: ADMIT Internal Medicine; ATTEND Internal Medicine
DX: K21.9 Gastro-esophageal reflux disease without esophagitis; J44.9 Chronic obstructive pulmonary disease, unspecified; E11.65 Type 2 diabetes mellitus with hyperglycemia; E87.0 Hyperosmolality and hypernatremia; F01.50 Vascular dementia, unspecified severity, without behavioral disturbance, psychotic disturbance, mood disturbance, and anxiety; E86.0 Dehydration; R40.4 Transient alteration of awareness; N39.0 Urinary tract infection, site not specified; N17.8 Other acute kidney failure; R62.7 Adult failure to thrive; R26.89 Other abnormalities of gait and mobility; I10 Essential (primary) hypertension; I25.10 Atherosclerotic heart disease of native coronary artery without angina pectoris
CPT/HCPCS: 36415; 71010; 71045; 80053; 81001; 82947; 83735; 84439; 84443; 85025; 87040; 87086; 97163; 97166; 97530; 97535; A4222; J0696; J1650; J1815; J3490; J7030; J7040